=== PATIENT | female | born 1955 | race Caucasian/White ===

== ENCOUNTER 2017-08-14 11:06 | Outpatient (CLI) | payer MEDICARE, BC, SELFPAY | END 2017-08-14 14:50 | disposition home or self-care (01) | DX: E88.01 Alpha-1-antitrypsin deficiency (principal) | CPT/HCPCS: 96365; J0256; J1642 ==

== ENCOUNTER → 2017-08-14 | Outpatient (CLI) | payer MEDICARE, BC, SELFPAY | DX: E88.01 Alpha-1-antitrypsin deficiency (principal) ==

== ENCOUNTER 2017-08-20 13:05 | Outpatient (CLI) | payer MEDICARE, BC, SELFPAY | END 2017-08-20 15:00 | disposition home or self-care (01) | PROVIDERS: Visit Provider Internal Medicine Pulmonary Disease | DX: E88.01 Alpha-1-antitrypsin deficiency (principal) | CPT/HCPCS: 96365; J0256; J1642 ==

== ENCOUNTER → 2017-08-27 09:00 | Outpatient (CLI) | payer MEDICARE, BC, SELFPAY | PROVIDERS: Visit Provider Internal Medicine Pulmonary Disease | DX: E88.01 Alpha-1-antitrypsin deficiency (principal) ==

== ENCOUNTER 2017-08-30 12:52 | Outpatient (CLI) | payer MEDICARE, BC, SELFPAY ==
[2017-08-30 12:53] VITALS: BMI 22.5
[2017-08-30 14:10] VITALS: BP 116/69; PULSE 66; RESP 20; TEMP 36.3; O2SAT 97
[2017-08-30 14:30] VITALS: BP 118/67; PULSE 69; RESP 20; O2SAT 96
[2017-08-30 14:55] VITALS: BP 120/64; PULSE 69; RESP 20; TEMP 36.4; O2SAT 97
== END 2017-08-30 15:10 | disposition home or self-care (01) ==
PROVIDERS: Visit Provider Internal Medicine Pulmonary Disease
DX: E88.01 Alpha-1-antitrypsin deficiency (principal)
CPT/HCPCS: 96365; J0256

== ENCOUNTER 2017-09-05 11:40 | Outpatient (CLI) | payer MEDICARE, BC, SELFPAY ==
[2017-09-05 12:03] VITALS: BMI 22.5
[2017-09-05 13:05] VITALS: BP 130/74; PULSE 65; RESP 18; TEMP 36.4; O2SAT 96
[2017-09-05 13:20] VITALS: BP 126/78; PULSE 69; RESP 20; O2SAT 96
[2017-09-05 13:35] VITALS: BP 119/67; PULSE 67; RESP 20; TEMP 36.5; O2SAT 95
[2017-09-05 14:09] LABS: Potassium 3.7 mmoL/L (3.5-5.1)
== END 2017-09-05 13:50 | disposition home or self-care (01) ==
LOC: INF 12:11
PROVIDERS: Physician Assistant; Visit Provider Internal Medicine Pulmonary Disease
DX: E88.01 Alpha-1-antitrypsin deficiency (principal); E87.6 Hypokalemia
CPT/HCPCS: 84132; 96365; J0256

== ENCOUNTER 2017-09-12 12:56 | Outpatient (CLI) | payer MEDICARE, BC, SELFPAY ==
[2017-09-12 13:07] VITALS: BMI 22.4
[2017-09-12 14:05] VITALS: BP 109/68; PULSE 80; RESP 22; TEMP 36.1; O2SAT 92
[2017-09-12 14:35] VITALS: BP 148/73; PULSE 73; RESP 22; O2SAT 92
== END 2017-09-12 16:00 | disposition home or self-care (01) ==
LOC: INF 12:57
PROVIDERS: Visit Provider Internal Medicine Pulmonary Disease
DX: E88.01 Alpha-1-antitrypsin deficiency (principal)
CPT/HCPCS: 96365; J0256

== ENCOUNTER 2017-09-18 13:16 | Outpatient (CLI) | payer MEDICARE, BC, SELFPAY ==
[2017-09-18 14:02] VITALS: BP 109/57; PULSE 76; RESP 20; TEMP 36.4; O2SAT 94
[2017-09-18 14:17] VITALS: BP 110/61; PULSE 79; RESP 20; TEMP 36.3; O2SAT 94
[2017-09-18 14:32] VITALS: BP 117/59; PULSE 74; RESP 20; O2SAT 95
[2017-09-18 14:47] VITALS: BP 108/67; PULSE 76; RESP 20; O2SAT 94
[2017-09-18 15:10] VITALS: BP 111/67; PULSE 72; RESP 20; TEMP 36.6; O2SAT 95
== END 2017-09-18 15:20 | disposition home or self-care (01) ==
LOC: INF 13:17
PROVIDERS: Visit Provider Internal Medicine Pulmonary Disease
DX: E88.01 Alpha-1-antitrypsin deficiency (principal)
CPT/HCPCS: 96365; J0256

== ENCOUNTER 2017-09-24 12:10 | Outpatient (CLI) | payer MEDICARE, BC, SELFPAY ==
[2017-09-24 12:29] VITALS: BP 121/78; PULSE 69; RESP 20; TEMP 36.5; O2SAT 94; BMI 22.3
[2017-09-24 13:15] VITALS: BP 126/74; PULSE 70; RESP 20; TEMP 36.4; O2SAT 95
[2017-09-24 13:40] VITALS: BP 120/77; PULSE 68; RESP 20; TEMP 36.6; O2SAT 95
== END 2017-09-24 14:07 ==
LOC: INF 12:23
PROVIDERS: Visit Provider Internal Medicine Pulmonary Disease
DX: E88.01 Alpha-1-antitrypsin deficiency (principal)
CPT/HCPCS: 96365; J0256

== ENCOUNTER 2017-10-01 13:00 | Outpatient (CLI) | payer MEDICARE, BC, SELFPAY ==
[2017-10-01 14:00] VITALS: BP 112/63; PULSE 66; RESP 20; TEMP 36.9; O2SAT 97
[2017-10-01 14:45] VITALS: BP 112/63; PULSE 66; RESP 20; TEMP 36.4; O2SAT 98
== END 2017-10-01 15:00 | disposition home or self-care (01) ==
LOC: INF 17:07
PROVIDERS: Visit Provider Internal Medicine Pulmonary Disease
DX: E88.01 Alpha-1-antitrypsin deficiency (principal)
CPT/HCPCS: 96365; J0256

== ENCOUNTER 2017-10-08 12:40 | Outpatient (CLI) | payer MEDICARE, BC, SELFPAY ==
[2017-10-08 13:00] VITALS: BP 130/60; PULSE 68; RESP 20; TEMP 36.4; O2SAT 96
[2017-10-08 13:15] VITALS: BP 122/70; PULSE 68; RESP 20; TEMP 36.6; O2SAT 96
[2017-10-08 13:55] VITALS: BP 132/78; PULSE 68; RESP 20; TEMP 36.7; O2SAT 96
[2017-10-08 14:00] VITALS: BP 128/70; PULSE 68; RESP 20; TEMP 36.4; O2SAT 96
== END 2017-10-08 14:00 | disposition home or self-care (01) ==
LOC: INF 15:42
PROVIDERS: Visit Provider Internal Medicine Critical Care Medicine
DX: E88.01 Alpha-1-antitrypsin deficiency (principal)
CPT/HCPCS: 96365; J0256

== ENCOUNTER 2017-10-15 13:10 | Outpatient (CLI) | payer MEDICARE, BC, SELFPAY ==
[2017-10-15 13:30] VITALS: BP 86/59; PULSE 64; RESP 18; O2SAT 96
[2017-10-15 13:37] VITALS: BMI 22.4
[2017-10-15 14:00] VITALS: BP 98/58; PULSE 65; RESP 20; TEMP 36.3; O2SAT 95
[2017-10-15 14:02] LABS: Potassium 4.2 mmoL/L (3.5-5.1)
[2017-10-15 14:30] VITALS: BP 102/54; PULSE 61; RESP 22; O2SAT 97
[2017-10-15 14:45] VITALS: BP 104/56; PULSE 69; RESP 20; TEMP 36.4; O2SAT 96
== END 2017-10-15 14:45 | disposition home or self-care (01) ==
LOC: INF 13:56
PROVIDERS: Visit Provider Internal Medicine Critical Care Medicine
DX: E88.01 Alpha-1-antitrypsin deficiency (principal)
CPT/HCPCS: 84132; 96365; J0256

== ENCOUNTER 2017-10-23 14:15 | Outpatient (CLI) | payer MEDICARE, BC, SELFPAY ==
[2017-10-23 14:25] VITALS: BP 126/75; PULSE 71; RESP 20; TEMP 36.2
[2017-10-23 15:05] VITALS: BP 116/63; PULSE 72; RESP 18
== END 2017-10-23 15:30 | disposition home or self-care (01) ==
LOC: INF 14:16
PROVIDERS: Visit Provider Internal Medicine Pulmonary Disease
DX: E88.01 Alpha-1-antitrypsin deficiency (principal)
CPT/HCPCS: 96365; J0256

== ENCOUNTER 2017-10-29 12:44 | Outpatient (CLI) | payer MEDICARE, BC, SELFPAY ==
[2017-10-29 13:15] VITALS: BP 129/75; PULSE 68; RESP 18; TEMP 36.4; O2SAT 95
[2017-10-29 13:30] VITALS: BP 132/76; PULSE 71; RESP 20; TEMP 36.6; O2SAT 95
[2017-10-29 13:45] VITALS: BP 122/68; PULSE 69; RESP 20
[2017-10-29 14:15] VITALS: BP 129/65; PULSE 72; RESP 18; TEMP 36.6; O2SAT 96
[2017-10-29 14:30] VITALS: BP 128/74; PULSE 68; RESP 20; TEMP 36.6; O2SAT 96
== END 2017-10-29 14:30 | disposition home or self-care (01) ==
LOC: INF 12:44
PROVIDERS: Visit Provider Internal Medicine Critical Care Medicine
DX: E88.01 Alpha-1-antitrypsin deficiency (principal)
CPT/HCPCS: 96365; J0256; J1642

== ENCOUNTER 2017-11-05 13:50 | Outpatient (CLI) | payer MEDICARE, BC, SELFPAY ==
[2017-11-05 14:58] VITALS: BP 129/68; PULSE 76; RESP 18; TEMP 36.6; O2SAT 95
[2017-11-05 15:13] VITALS: BP 131/67; PULSE 79; RESP 18; O2SAT 96
[2017-11-05 15:28] VITALS: BP 127/61; PULSE 80; RESP 18; O2SAT 95
[2017-11-05 15:45] VITALS: BP 124/68; PULSE 78; RESP 18; O2SAT 95
== END 2017-11-05 15:50 | disposition home or self-care (01) ==
LOC: INF 13:50
PROVIDERS: Visit Provider Internal Medicine Critical Care Medicine
DX: E88.01 Alpha-1-antitrypsin deficiency (principal)
CPT/HCPCS: 96365; J0256

== ENCOUNTER 2017-11-15 13:15 | Outpatient (CLI) | payer MEDICARE, BC, SELFPAY ==
[2017-11-15 14:45] VITALS: BP 109/74; PULSE 68; RESP 20; TEMP 37.1; O2SAT 96
[2017-11-15 15:00] VITALS: BP 98/65; PULSE 66; RESP 20; TEMP 36.4; O2SAT 96
[2017-11-15 15:30] VITALS: BP 109/78; PULSE 66; RESP 22; TEMP 36.6; O2SAT 96
== END 2017-11-15 15:30 | disposition home or self-care (01) ==
LOC: INF 13:56
PROVIDERS: Visit Provider Internal Medicine Critical Care Medicine
DX: E88.01 Alpha-1-antitrypsin deficiency (principal)
CPT/HCPCS: 96365; J0256

== ENCOUNTER 2017-11-22 14:28 | Outpatient (CLI) | payer MEDICARE, BC, SELFPAY ==
[2017-11-22 15:30] VITALS: BP 130/69; PULSE 85; RESP 20
[2017-11-22 16:11] VITALS: BP 111/77; PULSE 69; RESP 20
[2017-11-22 16:13] VITALS: BP 115/65; PULSE 86; RESP 20
== END 2017-11-22 16:28 | disposition home or self-care (01) ==
LOC: INF 14:28
PROVIDERS: Visit Provider Internal Medicine Critical Care Medicine
DX: E88.01 Alpha-1-antitrypsin deficiency (principal)
CPT/HCPCS: 96365; J0256

== ENCOUNTER 2017-11-26 14:31 | Outpatient (CLI) | payer MEDICARE, BC, SELFPAY ==
[2017-11-26 14:35] VITALS: BP 102/60; PULSE 76; RESP 18; TEMP 36.6; O2SAT 94
[2017-11-26 14:43] VITALS: BMI 22.3
[2017-11-26 14:50] VITALS: BP 108/66; PULSE 79; RESP 22; O2SAT 95
[2017-11-26 15:15] VITALS: BP 99/73; PULSE 73; RESP 20; O2SAT 94
[2017-11-26 15:35] VITALS: BP 108/52; PULSE 74; RESP 22; TEMP 36.6; O2SAT 95
[2017-11-26 15:55] VITALS: BP 104/62; PULSE 69; RESP 20; TEMP 36.6; O2SAT 94
[2017-11-26 16:49] LABS: Potassium 3.6 mmoL/L (3.5-5.1)
== END 2017-11-26 16:00 | disposition home or self-care (01) ==
LOC: INF 14:31
PROVIDERS: Visit Provider Internal Medicine Critical Care Medicine
DX: E88.01 Alpha-1-antitrypsin deficiency (principal)
CPT/HCPCS: 84132; 96365; J0256

== ENCOUNTER 2017-12-03 13:15 | Outpatient (CLI) | payer MEDICARE, BC, SELFPAY ==
[2017-12-03 13:47] VITALS: BP 118/57; PULSE 79; RESP 18; TEMP 36.4; O2SAT 96
[2017-12-03 14:02] VITALS: BP 116/59; PULSE 77; RESP 18; O2SAT 95
[2017-12-03 14:22] VITALS: BP 112/68; PULSE 79; RESP 18; O2SAT 95
[2017-12-03 14:37] VITALS: BP 120/62; PULSE 75; RESP 18; O2SAT 95
[2017-12-03 14:43] VITALS: BP 115/67; PULSE 74; RESP 18; O2SAT 96
== END 2017-12-03 15:00 | disposition home or self-care (01) ==
LOC: INF 13:26
PROVIDERS: Visit Provider Internal Medicine Critical Care Medicine
DX: E88.01 Alpha-1-antitrypsin deficiency (principal)
CPT/HCPCS: 96365; J0256

== ENCOUNTER 2017-12-12 13:15 | Outpatient (CLI) | payer MEDICARE, BC, SELFPAY ==
[2017-12-12 14:20] VITALS: BP 123/70; PULSE 85; RESP 20
[2017-12-12 14:50] VITALS: BP 100/69; PULSE 85; RESP 18
== END 2017-12-12 15:10 | disposition home or self-care (01) ==
LOC: INF 13:32
PROVIDERS: Visit Provider Internal Medicine Critical Care Medicine
DX: E88.01 Alpha-1-antitrypsin deficiency (principal)
CPT/HCPCS: 96365; J0256

== ENCOUNTER 2017-12-17 13:30 | Outpatient (CLI) | payer MEDICARE, BC, SELFPAY ==
[2017-12-17 14:35] VITALS: BP 110/71; PULSE 70; RESP 18; TEMP 36.6; O2SAT 94
[2017-12-17 14:55] VITALS: BP 113/76; PULSE 73; RESP 18; TEMP 36.6; O2SAT 95
[2017-12-17 15:20] VITALS: BP 99/79; PULSE 71; RESP 20; TEMP 36.5; O2SAT 94
[2017-12-17 15:55] VITALS: BP 112/74; PULSE 74; RESP 20; TEMP 36.4; O2SAT 94
== END 2017-12-17 16:00 | disposition home or self-care (01) ==
LOC: INF 14:03
PROVIDERS: Visit Provider Internal Medicine Critical Care Medicine
DX: E88.01 Alpha-1-antitrypsin deficiency (principal)
CPT/HCPCS: 96365; J0256; J1642

== ENCOUNTER 2017-12-24 12:00 | Outpatient (CLI) | payer MEDICARE, BC, SELFPAY ==
[2017-12-24 13:10] VITALS: BP 98/64; PULSE 89; RESP 18; TEMP 36.4; O2SAT 94
[2017-12-24 13:40] VITALS: BP 101/61; PULSE 84; RESP 18; O2SAT 95
[2017-12-24 14:00] VITALS: BP 99/60; PULSE 81; RESP 18; O2SAT 95
== END 2017-12-24 14:15 | disposition home or self-care (01) ==
LOC: INF 12:05
PROVIDERS: Visit Provider Internal Medicine Critical Care Medicine
DX: E88.01 Alpha-1-antitrypsin deficiency (principal)
CPT/HCPCS: 96365; J0256

== ENCOUNTER 2017-12-31 14:00 | Outpatient (CLI) | payer MEDICARE, BC, SELFPAY ==
[2017-12-31 14:43] VITALS: BP 104/69; PULSE 75; RESP 18; TEMP 36.7; O2SAT 95
[2017-12-31 15:13] VITALS: BP 109/67; PULSE 79; RESP 18; O2SAT 95
[2017-12-31 15:30] VITALS: BP 108/64; PULSE 81; RESP 18; O2SAT 94
== END 2017-12-31 15:45 | disposition home or self-care (01) ==
LOC: INF 14:23
PROVIDERS: Referring Provider Nurse Practitioner Acute Care
DX: E88.01 Alpha-1-antitrypsin deficiency (principal)
CPT/HCPCS: 96365; J0256

== ENCOUNTER 2018-01-07 15:00 | Outpatient (CLI) | payer MEDICARE, BC, SELFPAY ==
[2018-01-07 16:00] VITALS: BP 112/76; PULSE 64; RESP 18; TEMP 36.4; O2SAT 96
[2018-01-07 16:30] VITALS: BP 118/71; PULSE 68; RESP 18; O2SAT 95
[2018-01-07 16:45] VITALS: BP 121/68; PULSE 65; RESP 18; O2SAT 95
== END 2018-01-07 16:50 | disposition home or self-care (01) ==
LOC: INF 16:35
PROVIDERS: Visit Provider Internal Medicine Critical Care Medicine
DX: E88.01 Alpha-1-antitrypsin deficiency (principal)
CPT/HCPCS: 96365; J0256

== ENCOUNTER 2018-01-14 13:48 | Outpatient (CLI) | payer MEDICARE, BC, SELFPAY ==
[2018-01-14 14:38] VITALS: BP 116/81; PULSE 71; RESP 18; TEMP 36.5; O2SAT 94
[2018-01-14 14:55] VITALS: BP 127/78; PULSE 69; RESP 18; TEMP 36.6; O2SAT 94
[2018-01-14 15:55] VITALS: BP 121/68; PULSE 76; RESP 18; TEMP 36.6; O2SAT 94
== END 2018-01-14 16:00 | disposition home or self-care (01) ==
LOC: INF 13:49
PROVIDERS: Visit Provider Nurse Practitioner Acute Care
DX: E88.01 Alpha-1-antitrypsin deficiency (principal)
CPT/HCPCS: 96365; J0256

== ENCOUNTER 2018-01-21 12:40 | Outpatient (CLI) | payer MEDICARE, BC, SELFPAY ==
[2018-01-21 13:10] VITALS: BP 122/69; PULSE 68; RESP 20; TEMP 36.9; O2SAT 94
[2018-01-21 13:30] VITALS: BP 123/70; PULSE 68; RESP 20; TEMP 36.7; O2SAT 96
[2018-01-21 14:10] VITALS: BP 113/78; PULSE 66; RESP 20; TEMP 36.7; O2SAT 96
== END 2018-01-21 15:35 | disposition home or self-care (01) ==
LOC: INF 12:51
PROVIDERS: Visit Provider Internal Medicine Critical Care Medicine
DX: E88.01 Alpha-1-antitrypsin deficiency (principal)
CPT/HCPCS: 96365; J0256; J1642

== ENCOUNTER 2018-01-28 15:00 | Outpatient (CLI) | payer MEDICARE, BC, SELFPAY ==
[2018-01-28 15:10] VITALS: BP 105/61; PULSE 81; RESP 20; TEMP 36.9; O2SAT 93
[2018-01-28 15:50] VITALS: BP 106/50; PULSE 66; RESP 22; TEMP 36.9; O2SAT 92
== END 2018-01-28 16:00 | disposition home or self-care (01) ==
LOC: INF 15:13
PROVIDERS: Visit Provider Internal Medicine Critical Care Medicine
DX: E88.01 Alpha-1-antitrypsin deficiency (principal)
CPT/HCPCS: 96365; J0256; J1642

== ENCOUNTER 2018-02-03 12:16 | Outpatient (CLI) | payer MEDICARE, BC, SELFPAY ==
[2018-02-03 12:19] VITALS: BMI 22.3
[2018-02-03 13:04] LABS: Potassium 3.4 mmoL/L (3.5-5.1)
[2018-02-03 13:40] VITALS: BP 90/63; PULSE 90; RESP 18; TEMP 36.6; O2SAT 94
[2018-02-03 13:55] VITALS: BP 112/70; PULSE 78; RESP 18; TEMP 36.6; O2SAT 95
[2018-02-03 14:15] VITALS: BP 104/64; PULSE 74; RESP 20; TEMP 36.6; O2SAT 94
[2018-02-03 14:35] VITALS: BP 116/72; PULSE 78; RESP 18; TEMP 36.5; O2SAT 95
== END 2018-02-03 15:00 | disposition home or self-care (01) ==
LOC: INF 12:16
PROVIDERS: Visit Provider Nurse Practitioner Acute Care
DX: E88.01 Alpha-1-antitrypsin deficiency (principal)
CPT/HCPCS: 84132; 96365; J0256

== ENCOUNTER 2018-02-11 11:54 | Outpatient (CLI) | payer MEDICARE, BC, SELFPAY ==
[2018-02-11 12:35] VITALS: BP 105/70; PULSE 84; RESP 22; TEMP 36.7; O2SAT 94
[2018-02-11 12:55] VITALS: BP 112/64; PULSE 78; RESP 18; TEMP 36.6; O2SAT 94
[2018-02-11 13:15] VITALS: BP 102/58; PULSE 80; RESP 20; O2SAT 95
[2018-02-11 13:35] VITALS: BP 108/59; PULSE 76; RESP 18; TEMP 36.6; O2SAT 94
[2018-02-11 13:40] VITALS: BP 108/56; PULSE 79; RESP 18; TEMP 36.6; O2SAT 94
== END 2018-02-11 13:55 | disposition home or self-care (01) ==
LOC: INF 11:54
PROVIDERS: Visit Provider Nurse Practitioner Acute Care
DX: E88.01 Alpha-1-antitrypsin deficiency (principal)
CPT/HCPCS: 96365; J0256; J1642

== ENCOUNTER 2018-02-20 13:05 | Outpatient (CLI) | payer MEDICARE, BC, SELFPAY ==
[2018-02-20 13:50] VITALS: BP 124/70; PULSE 79; RESP 18; O2SAT 100
[2018-02-20 14:30] VITALS: BP 131/71; PULSE 82; RESP 18
== END 2018-02-20 15:00 | disposition home or self-care (01) ==
LOC: INF 13:21
PROVIDERS: Visit Provider Nurse Practitioner Acute Care
DX: E88.01 Alpha-1-antitrypsin deficiency (principal)
CPT/HCPCS: 96365; J0256

== ENCOUNTER 2018-02-25 14:32 | Outpatient (CLI) | payer MEDICARE, BC, SELFPAY ==
[2018-02-25 14:50] VITALS: BP 98/56; PULSE 71; RESP 22; TEMP 36.7; O2SAT 96
[2018-02-25 15:20] VITALS: BP 105/61; PULSE 76; RESP 20; O2SAT 95
[2018-02-25 15:30] VITALS: BP 109/54; PULSE 75; RESP 22; O2SAT 95
== END 2018-02-25 15:40 | disposition home or self-care (01) ==
LOC: INF 14:32
PROVIDERS: Visit Provider Nurse Practitioner Acute Care
DX: E88.01 Alpha-1-antitrypsin deficiency (principal)
CPT/HCPCS: 96365; J0256

== ENCOUNTER 2018-03-05 15:03 | Outpatient (CLI) | payer MEDICARE, BC, SELFPAY ==
[2018-03-05 14:49] VITALS: BP 119/69; PULSE 82; RESP 20; TEMP 36.3; O2SAT 94
[2018-03-05 15:19] VITALS: BP 115/64; PULSE 80; RESP 20; O2SAT 95
[2018-03-05 15:45] VITALS: BP 116/61; PULSE 81; RESP 20; O2SAT 95
== END 2018-03-05 15:50 | disposition home or self-care (01) ==
LOC: INF 15:03
PROVIDERS: Visit Provider Nurse Practitioner Acute Care
DX: E88.01 Alpha-1-antitrypsin deficiency (principal)
CPT/HCPCS: 96365; J0256

== ENCOUNTER 2018-03-11 14:21 | Outpatient (CLI) | payer MEDICARE, BC, SELFPAY ==
[2018-03-11 14:42] VITALS: BMI 21.9
[2018-03-11 15:15] VITALS: BP 124/69; PULSE 82; RESP 18; TEMP 36.6; O2SAT 95
[2018-03-11 15:41] LABS: Potassium 3.1 mmoL/L (3.5-5.1)
[2018-03-11 15:45] VITALS: BP 121/66; PULSE 80; RESP 18; O2SAT 95
[2018-03-11 16:00] VITALS: BP 119/61; PULSE 85; RESP 18; O2SAT 95
== END 2018-03-11 16:05 | disposition home or self-care (01) ==
LOC: INF 14:21
PROVIDERS: Visit Provider Nurse Practitioner Acute Care
DX: E88.01 Alpha-1-antitrypsin deficiency (principal)
CPT/HCPCS: 84132; 96365; J0256

== ENCOUNTER 2018-03-18 14:00 | Outpatient (CLI) | payer MEDICARE, BC, SELFPAY ==
[2018-03-18 15:15] VITALS: BP 95/51; PULSE 78; RESP 18; TEMP 36.4; O2SAT 95
[2018-03-18 15:45] VITALS: BP 112/67; PULSE 74; RESP 18; TEMP 36.6; O2SAT 94
[2018-03-18 16:10] VITALS: BP 102/65; PULSE 69; RESP 16; O2SAT 95
[2018-03-18 16:30] VITALS: BP 108/64; PULSE 78; RESP 20; TEMP 36.4; O2SAT 95
== END 2018-03-18 16:45 | disposition home or self-care (01) ==
LOC: INF 14:55
PROVIDERS: Visit Provider Nurse Practitioner Acute Care
DX: E88.01 Alpha-1-antitrypsin deficiency (principal)
CPT/HCPCS: 96365; J0256; J1642

== ENCOUNTER 2018-03-25 11:50 | Outpatient (CLI) | payer MEDICARE, BC, SELFPAY ==
[2018-03-25 13:20] VITALS: BP 121/57; PULSE 67; RESP 18; TEMP 36.5; O2SAT 98
[2018-03-25 13:50] VITALS: BP 118/61; PULSE 69; RESP 18; O2SAT 97
[2018-03-25 14:05] VITALS: BP 115/64; PULSE 68; RESP 18; O2SAT 97
== END 2018-03-25 14:10 | disposition home or self-care (01) ==
LOC: INF 16:19
PROVIDERS: Visit Provider Nurse Practitioner Acute Care
DX: E88.01 Alpha-1-antitrypsin deficiency (principal)
CPT/HCPCS: 96365; J0256

== ENCOUNTER 2018-04-01 13:57 | Outpatient (CLI) | payer MEDICARE, BC, SELFPAY ==
[2018-04-01 14:00] VITALS: BP 103/58; PULSE 80; RESP 18; TEMP 36.5; O2SAT 96
[2018-04-01 14:30] VITALS: BP 109/57; PULSE 79; RESP 18; O2SAT 96
[2018-04-01 14:52] VITALS: BP 99/58; PULSE 76; RESP 18; O2SAT 95
== END 2018-04-01 14:55 | disposition home or self-care (01) ==
LOC: INF 13:57
PROVIDERS: Visit Provider Nurse Practitioner Acute Care
DX: E88.01 Alpha-1-antitrypsin deficiency (principal)
CPT/HCPCS: 96365; J0256

== ENCOUNTER 2018-04-08 13:50 | Outpatient (CLI) | payer MEDICARE, BC, SELFPAY ==
[2018-04-08 14:05] VITALS: BMI 22.3
[2018-04-08 14:17] VITALS: BP 93/47; PULSE 70; RESP 18; TEMP 36.7; O2SAT 97
[2018-04-08 14:18] LABS: Potassium 3.8 mmoL/L (3.5-5.1)
[2018-04-08 14:47] VITALS: BP 97/49; PULSE 75; RESP 18; O2SAT 97
[2018-04-08 15:17] VITALS: BP 94/46; PULSE 74; RESP 18; O2SAT 97
[2018-04-08 15:35] VITALS: BP 101/49; PULSE 71; RESP 18; O2SAT 97
== END 2018-04-08 15:40 | disposition home or self-care (01) ==
LOC: INF 13:50
PROVIDERS: Visit Provider Nurse Practitioner Acute Care
DX: E88.01 Alpha-1-antitrypsin deficiency (principal)
CPT/HCPCS: 84132; 96365; J0256; J1642

== ENCOUNTER 2018-04-15 12:40 | Outpatient (CLI) | payer MEDICARE, BC, SELFPAY ==
[2018-04-15 12:40] VITALS: BP 105/65; PULSE 77; RESP 18; TEMP 36.9; O2SAT 93
[2018-04-15 13:29] VITALS: BMI 22.3
[2018-04-15 13:45] VITALS: BP 108/61; PULSE 79; RESP 18; O2SAT 94
[2018-04-15 14:05] VITALS: BP 99/60; PULSE 75; RESP 18; O2SAT 94
== END 2018-04-15 14:15 | disposition home or self-care (01) ==
LOC: INF 13:04
PROVIDERS: Visit Provider Internal Medicine Critical Care Medicine
DX: E88.01 Alpha-1-antitrypsin deficiency (principal)
CPT/HCPCS: 96365; J0256

== ENCOUNTER 2018-04-22 12:32 | Outpatient (CLI) | payer MEDICARE, BC, SELFPAY ==
[2018-04-22 13:20] VITALS: BP 120/74; PULSE 81; RESP 18; TEMP 36.7; O2SAT 95
[2018-04-22 13:50] VITALS: BP 117/72; PULSE 80; RESP 18; O2SAT 96
[2018-04-22 14:10] VITALS: BP 121/70; PULSE 79; RESP 18; O2SAT 95
== END 2018-04-22 14:17 | disposition home or self-care (01) ==
LOC: INF 12:33
PROVIDERS: Visit Provider Nurse Practitioner Acute Care
DX: E88.01 Alpha-1-antitrypsin deficiency (principal)
CPT/HCPCS: 96365; J0256

== ENCOUNTER 2018-04-30 13:26 | Outpatient (CLI) | payer MEDICARE, BC, SELFPAY ==
[2018-04-30 13:50] VITALS: BP 96/63; PULSE 84; RESP 18; TEMP 36.6; O2SAT 95
[2018-04-30 14:20] VITALS: BP 101/64; PULSE 88; RESP 18; O2SAT 96
[2018-04-30 14:50] VITALS: BP 99/68; PULSE 85; RESP 18; O2SAT 95
== END 2018-04-30 15:00 | disposition home or self-care (01) ==
LOC: INF 13:26
PROVIDERS: Visit Provider Nurse Practitioner Acute Care
DX: E88.01 Alpha-1-antitrypsin deficiency (principal)
CPT/HCPCS: 96365; J0256

== ENCOUNTER 2018-05-06 13:38 | Outpatient (CLI) | payer MEDICARE, BC, SELFPAY ==
[2018-05-06 14:35] VITALS: BP 147/83; PULSE 70; RESP 20; TEMP 36.6; O2SAT 96
[2018-05-06 14:55] VITALS: BP 129/74; PULSE 72; RESP 18; TEMP 36.6; O2SAT 97
[2018-05-06 15:15] VITALS: BP 123/75; PULSE 69; RESP 20; TEMP 36.5; O2SAT 96
== END 2018-05-06 15:20 | disposition home or self-care (01) ==
LOC: INF 13:38
PROVIDERS: Visit Provider Nurse Practitioner Acute Care
DX: E88.01 Alpha-1-antitrypsin deficiency (principal)
CPT/HCPCS: 96365; J0256; J1642

== ENCOUNTER 2018-05-13 14:15 | Outpatient (CLI) | payer MEDICARE, BC, SELFPAY ==
[2018-05-13 14:45] VITALS: BP 118/69; PULSE 90; RESP 18; TEMP 36.8; O2SAT 95
[2018-05-13 15:15] VITALS: BP 115/67; PULSE 89; RESP 18; O2SAT 96
[2018-05-13 15:40] VITALS: BP 92/59; PULSE 87; RESP 18; TEMP 36.7; O2SAT 95
== END 2018-05-13 15:40 | disposition home or self-care (01) ==
LOC: INF 14:30
PROVIDERS: PCP Physician Assistant; Visit Provider Nurse Practitioner Acute Care
DX: E88.01 Alpha-1-antitrypsin deficiency (principal)
CPT/HCPCS: 96365; J0256

== ENCOUNTER 2018-05-20 13:59 | Outpatient (CLI) | payer MEDICARE, BC, SELFPAY ==
[2018-05-20 14:17] VITALS: BP 109/60; PULSE 76; RESP 18; TEMP 36.6; O2SAT 95
[2018-05-20 14:47] VITALS: BP 112/62; PULSE 74; RESP 18; O2SAT 96
[2018-05-20 15:10] VITALS: BP 116/73; PULSE 73; RESP 18; O2SAT 95
== END 2018-05-20 15:42 | disposition home or self-care (01) ==
LOC: INF 13:59
PROVIDERS: PCP Physician Assistant; Visit Provider Nurse Practitioner Acute Care
DX: E88.01 Alpha-1-antitrypsin deficiency (principal)
CPT/HCPCS: 96365; J0256

== ENCOUNTER 2018-05-27 13:10 | Outpatient (CLI) | payer MEDICARE, BC, SELFPAY ==
[2018-05-27 14:30] VITALS: BP 120/58; PULSE 68; RESP 20; TEMP 36.9; O2SAT 96
[2018-05-27 15:00] VITALS: BP 135/68; PULSE 68; RESP 20; TEMP 37; O2SAT 96
[2018-05-27 15:30] VITALS: BP 128/58; PULSE 68; RESP 20; TEMP 36.9; O2SAT 96
== END 2018-05-27 15:30 | disposition home or self-care (01) ==
LOC: INF 13:14
PROVIDERS: Visit Provider Internal Medicine Critical Care Medicine
DX: E88.01 Alpha-1-antitrypsin deficiency (principal)
CPT/HCPCS: 96365; J0256

== ENCOUNTER 2018-06-03 13:06 | Outpatient (CLI) | payer MEDICARE, BC, SELFPAY ==
[2018-06-03 14:20] VITALS: BP 128/75; PULSE 78; RESP 18; TEMP 36.6; O2SAT 95
[2018-06-03 14:50] VITALS: BP 122/74; PULSE 79; RESP 18; O2SAT 95
[2018-06-03 15:00] VITALS: BP 120/71; PULSE 76; RESP 18; O2SAT 96
== END 2018-06-03 15:05 | disposition home or self-care (01) ==
LOC: INF 13:06
PROVIDERS: PCP Physician Assistant; Visit Provider Internal Medicine Critical Care Medicine
DX: E88.01 Alpha-1-antitrypsin deficiency (principal)
CPT/HCPCS: 96365; J0256; J1642

== ENCOUNTER 2018-06-10 13:20 | Outpatient (CLI) | payer MEDICARE, BC, SELFPAY ==
[2018-06-10 14:00] VITALS: BP 124/87; PULSE 88; RESP 18; TEMP 36.6; O2SAT 94
[2018-06-10 14:30] VITALS: BP 130/82; PULSE 90; RESP 20
== END 2018-06-10 14:45 | disposition home or self-care (01) ==
LOC: INF 14:03
PROVIDERS: PCP Physician Assistant; Visit Provider Nurse Practitioner Acute Care
DX: E88.01 Alpha-1-antitrypsin deficiency (principal)
CPT/HCPCS: 96365; J0256

== ENCOUNTER 2018-06-17 13:32 | Outpatient (CLI) | payer MEDICARE, BC, SELFPAY ==
[2018-06-17 14:06] VITALS: BP 96/57; PULSE 90; RESP 18; TEMP 36.6; O2SAT 95
[2018-06-17 14:36] VITALS: BP 102/59; PULSE 89; RESP 18; O2SAT 95
[2018-06-17 14:50] VITALS: BP 99/54; PULSE 84; RESP 18; O2SAT 96
== END 2018-06-17 14:57 | disposition home or self-care (01) ==
LOC: INF 13:32
PROVIDERS: Visit Provider Nurse Practitioner Acute Care
DX: E88.01 Alpha-1-antitrypsin deficiency (principal)
CPT/HCPCS: 96365; J0256

== ENCOUNTER 2018-06-24 14:25 | Outpatient (CLI) | payer MEDICARE, BC, SELFPAY ==
[2018-06-24 14:38] VITALS: BP 116/66; PULSE 77; RESP 20; TEMP 36.4; O2SAT 95
[2018-06-24 15:22] VITALS: BP 114/69; PULSE 79; RESP 18; O2SAT 95
== END 2018-06-24 15:37 | disposition home or self-care (01) ==
LOC: INF 14:25
PROVIDERS: Visit Provider Internal Medicine Critical Care Medicine
DX: E88.01 Alpha-1-antitrypsin deficiency (principal)
CPT/HCPCS: 96365; J0256

== ENCOUNTER 2018-07-02 11:10 | Outpatient (CLI) | payer MEDICARE, BC, SELFPAY ==
[2018-07-02 12:02] VITALS: BP 109/62; PULSE 84; RESP 18; TEMP 36.6; O2SAT 94
[2018-07-02 12:32] VITALS: BP 107/71; PULSE 81; RESP 18; O2SAT 95
[2018-07-02 12:55] VITALS: BP 110/70; PULSE 80; RESP 18; O2SAT 95
== END 2018-07-02 13:00 | disposition home or self-care (01) ==
LOC: INF 11:23
PROVIDERS: Visit Provider Nurse Practitioner Acute Care
DX: E88.01 Alpha-1-antitrypsin deficiency (principal)
CPT/HCPCS: 96365; J0256

== ENCOUNTER 2018-07-09 13:09 | Outpatient (CLI) | payer MEDICARE, BC, SELFPAY ==
[2018-07-09 13:30] VITALS: BP 122/64; PULSE 69; RESP 18; TEMP 36.5; O2SAT 95
[2018-07-09 14:00] VITALS: BP 119/66; PULSE 75; RESP 18; O2SAT 96
[2018-07-09 14:25] VITALS: BP 116/69; PULSE 76; RESP 18; O2SAT 95
== END 2018-07-09 14:35 | disposition home or self-care (01) ==
LOC: INF 13:09
PROVIDERS: Visit Provider Nurse Practitioner Acute Care
DX: E88.01 Alpha-1-antitrypsin deficiency (principal)
CPT/HCPCS: 96365; J0256

== ENCOUNTER → 2018-07-16 13:45 | Outpatient (CLI) | payer MEDICARE, BC, SELFPAY ==
[2018-07-16 14:30] VITALS: BP 104/65; PULSE 81; RESP 18; TEMP 37.1; O2SAT 94
[2018-07-16 15:02] VITALS: BP 110/65; PULSE 83; RESP 18; TEMP 37.1; O2SAT 94
[2018-07-16 15:17] VITALS: BP 109/61; PULSE 83; RESP 18; TEMP 37.1; O2SAT 94
== END ==
PROVIDERS: Visit Provider Nurse Practitioner Acute Care
DX: E88.01 Alpha-1-antitrypsin deficiency (principal)
CPT/HCPCS: 96365; J0256

== ENCOUNTER 2018-07-22 15:12 | Outpatient (CLI) | payer MEDICARE, BC, SELFPAY ==
[2018-07-22 15:15] VITALS: BP 131/74; PULSE 73; RESP 18; TEMP 36.4; O2SAT 96
[2018-07-22 15:46] VITALS: BP 133/76; PULSE 78; RESP 18; O2SAT 96
[2018-07-22 16:00] VITALS: BP 129/72; PULSE 71; RESP 18; O2SAT 95
== END 2018-07-22 16:00 | disposition home or self-care (01) ==
LOC: INF 15:12
PROVIDERS: Visit Provider Nurse Practitioner Acute Care
DX: E88.01 Alpha-1-antitrypsin deficiency (principal)
CPT/HCPCS: 96365; J0256

== ENCOUNTER 2018-07-29 12:00 | Outpatient (CLI) | payer MEDICARE, BC, SELFPAY ==
[2018-07-29 12:12] VITALS: BP 96/72; PULSE 82; RESP 20; TEMP 36.8; O2SAT 96
[2018-07-29 12:42] VITALS: BP 101/78; PULSE 88; RESP 20; O2SAT 96
[2018-07-29 12:57] VITALS: BP 111/74; PULSE 84; RESP 20; O2SAT 95
== END 2018-07-29 13:11 | disposition home or self-care (01) ==
LOC: INF 12:00
PROVIDERS: Visit Provider Nurse Practitioner Acute Care
DX: E88.01 Alpha-1-antitrypsin deficiency (principal)
CPT/HCPCS: 96365; J0256

== ENCOUNTER 2018-08-05 12:36 | Outpatient (CLI) | payer MEDICARE, BC, SELFPAY ==
[2018-08-05 13:50] VITALS: BP 105/52; PULSE 71; RESP 20; TEMP 36.6; O2SAT 95
[2018-08-05 14:20] VITALS: BP 116/66; PULSE 69; RESP 20; O2SAT 96
[2018-08-05 14:45] VITALS: BP 119/58; PULSE 68; RESP 20; O2SAT 96
== END 2018-08-05 15:00 | disposition home or self-care (01) ==
LOC: INF 12:36
PROVIDERS: Visit Provider Nurse Practitioner Acute Care
DX: E88.01 Alpha-1-antitrypsin deficiency (principal)
CPT/HCPCS: 96365; J0256

== ENCOUNTER 2018-08-13 14:37 | Outpatient (CLI) | payer MEDICARE, BC, SELFPAY ==
[2018-08-13 15:10] VITALS: BP 134/72; PULSE 78; RESP 20; TEMP 36.3; O2SAT 94
[2018-08-13 15:56] VITALS: BP 129/78; PULSE 79; RESP 20; O2SAT 95
== END 2018-08-13 15:59 | disposition home or self-care (01) ==
LOC: INF 14:37
PROVIDERS: Visit Provider Nurse Practitioner Acute Care
DX: E88.01 Alpha-1-antitrypsin deficiency (principal)
CPT/HCPCS: 96365; J0256

== ENCOUNTER 2018-08-20 12:57 | Outpatient (CLI) | payer MEDICARE, BC, SELFPAY ==
[2018-08-20 13:12] VITALS: BP 112/76; PULSE 82; RESP 18; TEMP 36.7; O2SAT 94
[2018-08-20 13:42] VITALS: BP 118/74; PULSE 88; RESP 18; O2SAT 95
[2018-08-20 14:15] VITALS: BP 128/77; PULSE 77; RESP 18; O2SAT 94
== END 2018-08-20 14:20 | disposition home or self-care (01) ==
LOC: INF 12:57
PROVIDERS: Visit Provider Internal Medicine Critical Care Medicine
DX: E88.01 Alpha-1-antitrypsin deficiency (principal)
CPT/HCPCS: 96365; J0256; J1642

== ENCOUNTER 2018-08-25 12:56 | Outpatient (CLI) | payer MEDICARE, BC, SELFPAY ==
[2018-08-25 12:55] VITALS: BP 151/73; PULSE 87; RESP 18; TEMP 36.6; O2SAT 96
[2018-08-25 13:28] VITALS: BP 151/73; PULSE 87; RESP 18; TEMP 36.6; O2SAT 96
[2018-08-25 14:09] VITALS: BP 109/58; PULSE 78; RESP 18; TEMP 36.6; O2SAT 96
== END 2018-08-25 14:12 | disposition home or self-care (01) ==
LOC: INF 12:56
PROVIDERS: Visit Provider Nurse Practitioner Acute Care
DX: E88.01 Alpha-1-antitrypsin deficiency (principal)
CPT/HCPCS: 96365; J0256

== ENCOUNTER 2018-09-03 12:43 | Outpatient (CLI) | payer MEDICARE, BC, SELFPAY ==
[2018-09-03 13:10] VITALS: BP 138/75; PULSE 77; RESP 18
[2018-09-03 13:50] VITALS: BP 129/78; PULSE 81; RESP 18
== END 2018-09-03 14:15 | disposition home or self-care (01) ==
LOC: INF 12:43
PROVIDERS: Visit Provider Nurse Practitioner Acute Care
DX: E88.01 Alpha-1-antitrypsin deficiency (principal)
CPT/HCPCS: 96365; J0256

== ENCOUNTER 2018-09-09 13:26 | Outpatient (CLI) | payer MEDICARE, BC, SELFPAY ==
[2018-09-09 14:16] VITALS: BP 120/81; PULSE 70; RESP 18; TEMP 36.8; O2SAT 97
[2018-09-09 14:46] VITALS: BP 116/78; PULSE 76; RESP 18; O2SAT 97
[2018-09-09 14:50] VITALS: BP 118/74; PULSE 74; RESP 18; O2SAT 97
== END 2018-09-09 15:00 | disposition home or self-care (01) ==
LOC: INF 13:26
PROVIDERS: Visit Provider Nurse Practitioner Acute Care
DX: E88.01 Alpha-1-antitrypsin deficiency (principal)
CPT/HCPCS: 96365; J0256

== ENCOUNTER 2018-09-19 13:50 | Outpatient (CLI) | payer MEDICARE, BC, SELFPAY ==
[2018-09-19 14:00] VITALS: BP 120/64; PULSE 96; RESP 20; TEMP 36.9; O2SAT 95
[2018-09-19 14:30] VITALS: BP 112/74; PULSE 66; RESP 20; TEMP 36.9; O2SAT 95
[2018-09-19 15:00] VITALS: BP 118/70; PULSE 68; RESP 20; TEMP 36.9; O2SAT 95
== END 2018-09-19 15:20 | disposition home or self-care (01) ==
LOC: INF 13:56
PROVIDERS: Visit Provider Nurse Practitioner Acute Care
DX: E88.01 Alpha-1-antitrypsin deficiency (principal)
CPT/HCPCS: 96365; J0256

== ENCOUNTER 2018-09-23 12:38 | Outpatient (CLI) | payer MEDICARE, BC, SELFPAY ==
[2018-09-23 13:30] VITALS: BP 114/74; PULSE 79; RESP 18; TEMP 36.4; O2SAT 94
[2018-09-23 14:00] VITALS: BP 124/78; PULSE 81; RESP 18; O2SAT 95
[2018-09-23 14:25] VITALS: BP 136/73; PULSE 77; RESP 18; O2SAT 95
== END 2018-09-23 14:35 | disposition home or self-care (01) ==
LOC: INF 12:38
PROVIDERS: Visit Provider Nurse Practitioner Acute Care
DX: E88.01 Alpha-1-antitrypsin deficiency (principal)
CPT/HCPCS: 96365; J0256

== ENCOUNTER 2018-09-30 12:55 | Outpatient (CLI) | payer MEDICARE, BC, SELFPAY ==
[2018-09-30 13:37] VITALS: BP 112/75; PULSE 81; RESP 18; TEMP 36.7; O2SAT 96
[2018-09-30 14:07] VITALS: BP 117/85; PULSE 78; RESP 18; O2SAT 96
[2018-09-30 14:30] VITALS: BP 132/75; PULSE 74; RESP 18; O2SAT 95
== END 2018-09-30 15:00 | disposition home or self-care (01) ==
LOC: INF 13:05
PROVIDERS: Visit Provider Nurse Practitioner Acute Care
DX: E88.01 Alpha-1-antitrypsin deficiency (principal)
CPT/HCPCS: 96365; J0256; J1642

== ENCOUNTER 2018-10-07 13:17 | Outpatient (CLI) | payer MEDICARE, BC, SELFPAY ==
[2018-10-07 14:05] VITALS: BP 118/69; PULSE 89; RESP 18; TEMP 36.6; O2SAT 94
[2018-10-07 14:35] VITALS: BP 115/67; PULSE 84; RESP 18; O2SAT 95
[2018-10-07 15:05] VITALS: BP 121/69; PULSE 85; RESP 18; O2SAT 95
== END 2018-10-07 15:25 | disposition home or self-care (01) ==
LOC: INF 13:17
PROVIDERS: Visit Provider Nurse Practitioner Acute Care
DX: E88.01 Alpha-1-antitrypsin deficiency (principal)
CPT/HCPCS: 96365; J0256; J1642

== ENCOUNTER 2018-10-14 12:51 | Outpatient (CLI) | payer MEDICARE, BC, SELFPAY ==
[2018-10-14 13:35] VITALS: BP 128/74; PULSE 68; RESP 20; TEMP 36.9; O2SAT 95
[2018-10-14 14:00] VITALS: BP 142/74; PULSE 66; RESP 20; TEMP 36.9; O2SAT 95
[2018-10-14 14:30] VITALS: BP 132/74; PULSE 72; RESP 18; TEMP 37.5; O2SAT 95
== END 2018-10-14 14:35 | disposition home or self-care (01) ==
LOC: INF 12:52
PROVIDERS: Visit Provider Nurse Practitioner Acute Care
DX: E88.01 Alpha-1-antitrypsin deficiency (principal)
CPT/HCPCS: 96365; J0256

== ENCOUNTER → 2018-10-21 13:11 | Outpatient (CLI) | payer MEDICARE, BC, SELFPAY ==
[2018-10-21 13:30] VITALS: BP 126/73; PULSE 86; RESP 18; TEMP 36.8; O2SAT 93
[2018-10-21 13:45] VITALS: BMI 23.0
[2018-10-21 14:10] VITALS: BP 113/76; PULSE 88; RESP 18; TEMP 36.8; O2SAT 94
== END ==
PROVIDERS: Visit Provider Nurse Practitioner Acute Care
DX: E88.01 Alpha-1-antitrypsin deficiency (principal)
CPT/HCPCS: 96365; J0256

== ENCOUNTER 2018-10-31 12:10 | Outpatient (CLI) | payer MEDICARE, BC, SELFPAY ==
[2018-10-31 12:45] VITALS: BP 119/63; PULSE 78; RESP 18
[2018-10-31 13:15] VITALS: BP 101/68; PULSE 77; RESP 18
[2018-10-31 13:55] VITALS: BP 126/71; PULSE 72; RESP 18
== END 2018-10-31 13:55 | disposition home or self-care (01) ==
LOC: INF 12:10
PROVIDERS: Visit Provider Nurse Practitioner Acute Care
DX: E88.01 Alpha-1-antitrypsin deficiency (principal)
CPT/HCPCS: 96365; J0256

== ENCOUNTER 2018-11-04 13:26 | Outpatient (CLI) | payer MEDICARE, BC, SELFPAY ==
[2018-11-04 14:07] VITALS: BP 124/77; PULSE 74; RESP 20; TEMP 36.7; O2SAT 97
[2018-11-04 14:37] VITALS: BP 121/72; PULSE 76; RESP 20; O2SAT 96
[2018-11-04 14:50] VITALS: BP 131/76; PULSE 72; RESP 20; O2SAT 96
== END 2018-11-04 15:00 | disposition home or self-care (01) ==
LOC: INF 13:26
PROVIDERS: Visit Provider Nurse Practitioner Acute Care
DX: E88.01 Alpha-1-antitrypsin deficiency (principal)
CPT/HCPCS: 96365; J0256

== ENCOUNTER 2018-11-11 12:20 | Outpatient (CLI) | payer MEDICARE, BC, SELFPAY ==
[2018-11-11 12:39] VITALS: BP 114/69; PULSE 73; RESP 18; TEMP 36.7; O2SAT 98
[2018-11-11 13:09] VITALS: BP 119/67; PULSE 76; RESP 18; O2SAT 97
[2018-11-11 13:35] VITALS: BP 112/65; PULSE 74; RESP 18; O2SAT 97
== END 2018-11-11 13:45 | disposition home or self-care (01) ==
LOC: INF 12:20
PROVIDERS: Visit Provider Nurse Practitioner Acute Care
DX: E88.01 Alpha-1-antitrypsin deficiency (principal)
CPT/HCPCS: 96365; J0256

== ENCOUNTER 2018-11-19 12:35 | Outpatient (CLI) | payer MEDICARE, BC, SELFPAY ==
[2018-11-19 13:15] VITALS: BP 136/77; PULSE 93; RESP 18; TEMP 36.6; O2SAT 95
[2018-11-19 13:45] VITALS: BP 112/72; PULSE 82; RESP 18; O2SAT 96
== END 2018-11-19 14:05 | disposition home or self-care (01) ==
LOC: INF 12:56
PROVIDERS: Visit Provider Nurse Practitioner Acute Care
DX: E88.01 Alpha-1-antitrypsin deficiency (principal)
CPT/HCPCS: 96365; J0256

== ENCOUNTER 2018-11-25 12:44 | Outpatient (CLI) | payer MEDICARE, BC, SELFPAY ==
[2018-11-25 13:30] VITALS: BP 145/82; PULSE 72; RESP 18; TEMP 36.6; O2SAT 95
[2018-11-25 14:15] VITALS: BP 105/58; PULSE 80; RESP 18
== END 2018-11-25 14:15 | disposition home or self-care (01) ==
LOC: INF 12:44
PROVIDERS: Visit Provider Nurse Practitioner Acute Care
DX: E88.01 Alpha-1-antitrypsin deficiency (principal)
CPT/HCPCS: 96365; J0256

== ENCOUNTER 2018-12-02 13:05 | Outpatient (CLI) | payer MEDICARE, BC, SELFPAY ==
[2018-12-02 13:05] VITALS: BP 124/62; PULSE 68; RESP 18; TEMP 36.4; O2SAT 96
[2018-12-02 13:35] VITALS: BP 121/68; PULSE 69; RESP 18; O2SAT 95
[2018-12-02 13:50] VITALS: BP 119/67; PULSE 64; RESP 18; O2SAT 96
== END 2018-12-02 14:00 | disposition home or self-care (01) ==
LOC: INF 14:51
PROVIDERS: Visit Provider Nurse Practitioner Acute Care
DX: E88.01 Alpha-1-antitrypsin deficiency (principal)
CPT/HCPCS: 96365; J0256; J1642

== ENCOUNTER 2018-12-09 12:17 | Outpatient (CLI) | payer MEDICARE, BC, SELFPAY ==
[2018-12-09 13:00] VITALS: BP 108/76; PULSE 81; RESP 20; TEMP 36.9; O2SAT 97
[2018-12-09 13:50] VITALS: BP 120/79; PULSE 90; RESP 20; TEMP 36.9; O2SAT 95
== END 2018-12-09 13:50 | disposition home or self-care (01) ==
LOC: INF 12:17
PROVIDERS: Visit Provider Nurse Practitioner Acute Care
DX: E88.01 Alpha-1-antitrypsin deficiency (principal)
CPT/HCPCS: 96365; J0256

== ENCOUNTER 2018-12-16 12:45 | Outpatient (CLI) | payer MEDICARE, BC, SELFPAY ==
[2018-12-16 13:25] VITALS: BP 117/71; PULSE 78; RESP 18; TEMP 36.7; O2SAT 96
[2018-12-16 13:55] VITALS: BP 114/72; PULSE 74; RESP 18; O2SAT 97
[2018-12-16 14:50] VITALS: BP 121/71; PULSE 72; RESP 18; O2SAT 96
== END 2018-12-16 14:40 | disposition home or self-care (01) ==
LOC: INF 13:00
PROVIDERS: Visit Provider Nurse Practitioner Acute Care
DX: E88.01 Alpha-1-antitrypsin deficiency (principal)
CPT/HCPCS: 96365; 96375; J0256

== ENCOUNTER 2018-12-23 12:43 | Outpatient (CLI) | payer MEDICARE, BC, SELFPAY ==
[2018-12-23 13:05] VITALS: BP 124/67; PULSE 78; RESP 18; TEMP 36.6; O2SAT 94
[2018-12-23 13:35] VITALS: BP 121/66; PULSE 74; RESP 18; O2SAT 95
[2018-12-23 14:02] VITALS: BP 119/64; PULSE 79; RESP 18; O2SAT 95
== END 2018-12-23 14:05 | disposition home or self-care (01) ==
LOC: INF 12:43
PROVIDERS: Visit Provider Nurse Practitioner Acute Care
DX: E88.01 Alpha-1-antitrypsin deficiency (principal)
CPT/HCPCS: 96365; J0256

== ENCOUNTER 2018-12-30 11:42 | Outpatient (CLI) | payer MEDICARE, BC, SELFPAY ==
[2018-12-30 12:26] VITALS: BP 106/67; PULSE 83; RESP 18; TEMP 36.8; O2SAT 94
[2018-12-30 12:56] VITALS: BP 104/62; PULSE 81; RESP 18; O2SAT 95
[2018-12-30 13:07] VITALS: BP 110/62; PULSE 69; RESP 18; O2SAT 94
== END 2018-12-30 13:10 | disposition home or self-care (01) ==
LOC: INF 11:43
PROVIDERS: Visit Provider Nurse Practitioner Acute Care
DX: E88.01 Alpha-1-antitrypsin deficiency (principal)
CPT/HCPCS: 96365; J0256

== ENCOUNTER 2019-01-06 13:19 | Outpatient (CLI) | payer MEDICARE, BC, SELFPAY ==
[2019-01-06 13:55] VITALS: BP 110/74; PULSE 80; RESP 18; TEMP 36.6; O2SAT 93
[2019-01-06 14:25] VITALS: BP 119/71; PULSE 84; RESP 18; O2SAT 94
[2019-01-06 14:45] VITALS: BP 115/70; PULSE 82; RESP 18; O2SAT 93
== END 2019-01-06 14:45 | disposition home or self-care (01) ==
LOC: INF 13:19
PROVIDERS: Visit Provider Nurse Practitioner Acute Care
DX: E88.01 Alpha-1-antitrypsin deficiency (principal)
CPT/HCPCS: 96365; J0256

== ENCOUNTER 2019-01-13 13:15 | Outpatient (CLI) | payer MEDICARE, BC, SELFPAY ==
[2019-01-13 13:55] VITALS: BP 115/73; PULSE 57; RESP 18; O2SAT 98
[2019-01-13 15:00] VITALS: BP 92/66; PULSE 78; RESP 18; O2SAT 96
== END 2019-01-13 15:00 | disposition home or self-care (01) ==
LOC: INF 13:20
PROVIDERS: Visit Provider Nurse Practitioner Acute Care
DX: E88.01 Alpha-1-antitrypsin deficiency (principal)
CPT/HCPCS: 96365; J0256

== ENCOUNTER 2019-01-20 13:10 | Outpatient (CLI) | payer MEDICARE, BC, SELFPAY ==
[2019-01-20 13:00] VITALS: BP 106/82; PULSE 71; RESP 18; TEMP 36.6; O2SAT 94
[2019-01-20 14:05] VITALS: BP 103/57; PULSE 67; RESP 20; TEMP 36.6; O2SAT 95
== END 2019-01-20 14:05 | disposition home or self-care (01) ==
LOC: INF 13:10
PROVIDERS: Visit Provider Nurse Practitioner Acute Care
DX: E88.01 Alpha-1-antitrypsin deficiency (principal)
CPT/HCPCS: 96365; J0256; J1642

== ENCOUNTER 2019-01-28 14:05 | Outpatient (CLI) | payer MEDICARE, BC, SELFPAY ==
[2019-01-28 14:56] VITALS: BP 115/64; PULSE 80; RESP 20; O2SAT 93
[2019-01-28 15:40] VITALS: BP 91/62; PULSE 80; RESP 20; O2SAT 96
== END 2019-01-28 16:00 | disposition home or self-care (01) ==
LOC: INF 14:12
PROVIDERS: Visit Provider Nurse Practitioner Acute Care
DX: E88.01 Alpha-1-antitrypsin deficiency (principal)
CPT/HCPCS: 96365; J0256; J1642

== ENCOUNTER 2019-02-03 11:43 | Outpatient (CLI) | payer MEDICARE, BC, SELFPAY ==
[2019-02-03 12:37] VITALS: BP 109/68; PULSE 74; RESP 18; TEMP 36.4; O2SAT 96
[2019-02-03 13:07] VITALS: BP 110/70; PULSE 76; RESP 18; O2SAT 95
[2019-02-03 13:15] VITALS: BP 109/75; PULSE 75; RESP 18; O2SAT 96
== END 2019-02-03 13:15 | disposition home or self-care (01) ==
LOC: INF 11:43
PROVIDERS: Visit Provider Nurse Practitioner Acute Care
DX: E88.01 Alpha-1-antitrypsin deficiency (principal); Z45.2 Encounter for adjustment and management of vascular access device
CPT/HCPCS: 96365; J0256; J1642

== ENCOUNTER 2019-02-13 12:20 | Outpatient (CLI) | payer MEDICARE, BC, SELFPAY ==
[2019-02-13 13:40] VITALS: BP 95/60; PULSE 78; RESP 18; O2SAT 96
[2019-02-13 14:15] VITALS: BP 112/96; PULSE 55; RESP 18; O2SAT 97
== END 2019-02-13 14:40 | disposition home or self-care (01) ==
LOC: INF 12:33
PROVIDERS: Visit Provider Nurse Practitioner Acute Care
DX: E88.01 Alpha-1-antitrypsin deficiency (principal)
CPT/HCPCS: 96365; J0256

== ENCOUNTER 2019-02-17 13:10 | Outpatient (CLI) | payer MEDICARE, BC, SELFPAY ==
[2019-02-17 13:52] VITALS: BP 95/46; PULSE 69; RESP 20; TEMP 36.6; O2SAT 96
[2019-02-17 14:22] VITALS: BP 101/50; PULSE 67; RESP 20; O2SAT 95
[2019-02-17 14:38] VITALS: BP 111/52; PULSE 69; RESP 20; O2SAT 95
== END 2019-02-17 14:52 | disposition home or self-care (01) ==
LOC: INF 13:17
PROVIDERS: Visit Provider Nurse Practitioner Acute Care
DX: E88.01 Alpha-1-antitrypsin deficiency (principal)
CPT/HCPCS: 96365; J0256

== ENCOUNTER → 2019-02-25 13:05 | Outpatient (CLI) | payer MEDICARE, BC, SELFPAY ==
[2019-02-25 13:50] VITALS: BP 92/56; PULSE 79; RESP 20; O2SAT 91
[2019-02-25 14:25] VITALS: BP 109/80; PULSE 96; RESP 20
== END ==
PROVIDERS: Visit Provider Nurse Practitioner Acute Care
DX: E88.01 Alpha-1-antitrypsin deficiency (principal)
CPT/HCPCS: 96365; J0256

== ENCOUNTER 2019-03-03 14:02 | Outpatient (CLI) | payer MEDICARE, BC, SELFPAY ==
[2019-03-03 14:55] VITALS: BP 103/54; PULSE 76; RESP 20; TEMP 36.5; O2SAT 93
[2019-03-03 15:25] VITALS: BP 110/61; PULSE 78; RESP 20; O2SAT 94
[2019-03-03 15:47] VITALS: BP 107/56; PULSE 58; RESP 20; O2SAT 95
== END 2019-03-03 15:47 | disposition home or self-care (01) ==
LOC: INF 14:02
PROVIDERS: Visit Provider Nurse Practitioner Acute Care
DX: E88.01 Alpha-1-antitrypsin deficiency (principal)
CPT/HCPCS: 96365; J0256

== ENCOUNTER 2019-03-10 13:38 | Outpatient (CLI) | payer MEDICARE, BC, SELFPAY ==
[2019-03-10 14:08] VITALS: BP 80/49; PULSE 96; RESP 18; O2SAT 94
[2019-03-10 15:13] VITALS: BP 86/57; PULSE 86; RESP 20; O2SAT 94
== END 2019-03-10 15:13 | disposition home or self-care (01) ==
LOC: INF 13:38
PROVIDERS: Visit Provider Nurse Practitioner Acute Care
DX: E88.01 Alpha-1-antitrypsin deficiency (principal)
CPT/HCPCS: 96365; J0256

== ENCOUNTER 2019-03-18 13:15 | Outpatient (CLI) | payer MEDICARE, BC, SELFPAY ==
[2019-03-18 13:50] VITALS: BP 99/61; PULSE 83; RESP 18; O2SAT 97
[2019-03-18 15:15] VITALS: BP 118/76; PULSE 78; RESP 20; O2SAT 94
== END 2019-03-18 15:15 | disposition home or self-care (01) ==
LOC: INF 13:21
PROVIDERS: Visit Provider Nurse Practitioner Acute Care
DX: E88.01 Alpha-1-antitrypsin deficiency (principal)
CPT/HCPCS: 96365; J0256

== ENCOUNTER 2019-03-24 13:59 | Outpatient (CLI) | payer MEDICARE, BC, SELFPAY ==
[2019-03-24 14:20] VITALS: BP 119/69; PULSE 90; RESP 18; TEMP 36.6; O2SAT 94
[2019-03-24 14:50] VITALS: BP 123/67; PULSE 87; RESP 18; O2SAT 95
[2019-03-24 15:08] VITALS: BP 117/69; PULSE 84; RESP 18; O2SAT 95
== END 2019-03-24 15:19 | disposition home or self-care (01) ==
LOC: INF 13:59
PROVIDERS: Visit Provider Nurse Practitioner Acute Care
DX: E88.01 Alpha-1-antitrypsin deficiency (principal)
CPT/HCPCS: 96365; J0256

== ENCOUNTER 2019-03-31 13:32 | Outpatient (CLI) | payer MEDICARE, BC, SELFPAY ==
[2019-03-31 14:28] VITALS: BP 122/61; PULSE 84; RESP 20; TEMP 36.5; O2SAT 94
[2019-03-31 14:58] VITALS: BP 120/61; PULSE 88; RESP 20; O2SAT 95
[2019-03-31 15:27] VITALS: BP 117/64; PULSE 81; RESP 20; O2SAT 94
== END 2019-03-31 15:28 | disposition home or self-care (01) ==
LOC: INF 13:32
PROVIDERS: Visit Provider Nurse Practitioner Acute Care
DX: E88.01 Alpha-1-antitrypsin deficiency (principal)
CPT/HCPCS: 96365; J0256

== ENCOUNTER 2019-04-08 12:20 | Outpatient (CLI) | payer MEDICARE, BC, SELFPAY ==
[2019-04-08 12:40] VITALS: BP 92/70; PULSE 89; RESP 20; O2SAT 94
[2019-04-08 14:25] VITALS: BP 108/72; PULSE 91; RESP 18; O2SAT 90
== END 2019-04-08 14:25 | disposition home or self-care (01) ==
LOC: INF 12:20
PROVIDERS: Visit Provider Nurse Practitioner Acute Care
DX: E88.01 Alpha-1-antitrypsin deficiency (principal)
CPT/HCPCS: 96365; J0256

== ENCOUNTER 2019-04-13 12:55 | Outpatient (CLI) | payer MEDICARE, BC, SELFPAY ==
[2019-04-13 13:27] VITALS: BP 101/54; PULSE 80; RESP 22; TEMP 36.5; O2SAT 94
[2019-04-13 14:10] VITALS: BP 104/58; PULSE 77; RESP 22; O2SAT 95
== END 2019-04-13 14:25 | disposition home or self-care (01) ==
LOC: INF 12:55
PROVIDERS: Visit Provider Nurse Practitioner Acute Care
DX: E88.01 Alpha-1-antitrypsin deficiency (principal)
CPT/HCPCS: 96365; J0256

== ENCOUNTER 2019-04-21 14:05 | Outpatient (CLI) | payer MEDICARE, BC, SELFPAY ==
[2019-04-21 14:30] VITALS: BP 93/52; PULSE 81; RESP 22; TEMP 36.6; O2SAT 92
[2019-04-21 15:00] VITALS: BP 96/55; PULSE 82; RESP 22; O2SAT 94
[2019-04-21 15:20] VITALS: BP 98/58; PULSE 86; RESP 20; O2SAT 94
== END 2019-04-21 15:20 | disposition home or self-care (01) ==
LOC: INF 14:05
PROVIDERS: Visit Provider Nurse Practitioner Acute Care
DX: E88.01 Alpha-1-antitrypsin deficiency (principal)
CPT/HCPCS: 96365; J0256

== ENCOUNTER 2019-04-29 13:57 | Outpatient (CLI) | payer MEDICARE, BC, SELFPAY ==
[2019-04-29 14:10] VITALS: BP 119/73; PULSE 84; RESP 20; O2SAT 92
[2019-04-29 15:20] VITALS: BP 113/50; PULSE 94; RESP 20
== END 2019-04-29 15:20 | disposition home or self-care (01) ==
LOC: INF 13:57
PROVIDERS: Visit Provider Nurse Practitioner Acute Care
DX: E88.01 Alpha-1-antitrypsin deficiency (principal)
CPT/HCPCS: 96365; J0256; J1642

== ENCOUNTER 2019-05-06 13:26 | Outpatient (CLI) | payer MEDICARE, BC, SELFPAY ==
[2019-05-06 13:47] VITALS: BP 97/55; PULSE 89; RESP 22; TEMP 36.7; O2SAT 93
[2019-05-06 14:17] VITALS: BP 95/52; PULSE 84; RESP 22; O2SAT 94
[2019-05-06 14:35] VITALS: BP 99/55; PULSE 81; RESP 22; O2SAT 94
== END 2019-05-06 14:35 | disposition home or self-care (01) ==
LOC: INF 13:26
PROVIDERS: Visit Provider Nurse Practitioner Acute Care
DX: E88.01 Alpha-1-antitrypsin deficiency (principal)
CPT/HCPCS: 96365; J0256

== ENCOUNTER 2019-05-12 14:12 | Outpatient (CLI) | payer MEDICARE, BC, SELFPAY ==
[2019-05-12 14:50] VITALS: BP 85/64; PULSE 105; RESP 20; O2SAT 93
[2019-05-12 16:15] VITALS: BP 97/52; PULSE 86; RESP 20; O2SAT 92
== END 2019-05-12 16:15 | disposition home or self-care (01) ==
LOC: INF 14:12
PROVIDERS: Visit Provider Nurse Practitioner Acute Care
DX: E88.01 Alpha-1-antitrypsin deficiency (principal)
CPT/HCPCS: 96365; J0256

== ENCOUNTER 2019-05-19 15:39 | Outpatient (CLI) | payer MEDICARE, BC, SELFPAY ==
[2019-05-19 15:52] VITALS: BP 102/74; PULSE 91; RESP 18; TEMP 36.6; O2SAT 91
[2019-05-19 16:22] VITALS: BP 109/78; PULSE 90; RESP 18; O2SAT 92
[2019-05-19 16:40] VITALS: BP 103/76; PULSE 89; RESP 18; O2SAT 92
== END 2019-05-19 16:44 | disposition home or self-care (01) ==
LOC: INF 15:39
PROVIDERS: Visit Provider Nurse Practitioner Acute Care
DX: E88.01 Alpha-1-antitrypsin deficiency (principal)
CPT/HCPCS: 96365; J0256; J1642

== ENCOUNTER 2019-05-26 14:36 | Outpatient (CLI) | payer MEDICARE, BC, SELFPAY ==
[2019-05-26 15:21] VITALS: BP 97/55; PULSE 83; RESP 18; TEMP 36.6; O2SAT 94
[2019-05-26 15:50] VITALS: BP 98/59; PULSE 78; RESP 18; TEMP 36.6; O2SAT 93
[2019-05-26 16:17] VITALS: BP 106/54; PULSE 79; RESP 20; TEMP 36.5; O2SAT 94
== END 2019-05-26 16:24 | disposition home or self-care (01) ==
LOC: INF 14:36
PROVIDERS: Visit Provider Nurse Practitioner Acute Care
DX: E88.01 Alpha-1-antitrypsin deficiency (principal)
CPT/HCPCS: 96365; J0256

== ENCOUNTER 2019-06-03 15:31 | Outpatient (CLI) | payer MEDICARE, BC, SELFPAY ==
[2019-06-03 16:06] VITALS: BP 114/76; PULSE 84; RESP 20; TEMP 36.6; O2SAT 94
[2019-06-03 16:15] VITALS: BP 108/59; PULSE 78; RESP 18; TEMP 36.5; O2SAT 94
[2019-06-03 16:30] VITALS: BP 112/69; PULSE 69; RESP 20; TEMP 36.6; O2SAT 93
[2019-06-03 16:45] VITALS: BP 114/72; PULSE 70; RESP 18; TEMP 36.6; O2SAT 94
[2019-06-03 16:56] VITALS: BP 106/62; PULSE 64; RESP 20; TEMP 36.5; O2SAT 94
== END 2019-06-03 17:05 | disposition home or self-care (01) ==
LOC: INF 15:31
PROVIDERS: Visit Provider Nurse Practitioner Acute Care
DX: E88.01 Alpha-1-antitrypsin deficiency (principal)
CPT/HCPCS: 96365; J0256

== ENCOUNTER 2019-06-10 14:42 | Outpatient (CLI) | payer MEDICARE, BC, SELFPAY ==
[2019-06-10 14:48] VITALS: BP 114/63; PULSE 79; RESP 18; TEMP 36.6; O2SAT 95
[2019-06-10 15:18] VITALS: BP 111/69; PULSE 76; RESP 18; O2SAT 95
== END 2019-06-10 15:40 | disposition home or self-care (01) ==
LOC: INF 14:42
PROVIDERS: Visit Provider Nurse Practitioner Acute Care
DX: E88.01 Alpha-1-antitrypsin deficiency (principal)
CPT/HCPCS: 96365; J0256

== ENCOUNTER 2019-06-16 13:41 | Outpatient (CLI) | payer MEDICARE, BC, SELFPAY ==
[2019-06-16 14:09] VITALS: BP 124/69; PULSE 92; RESP 18; TEMP 36.6; O2SAT 92
[2019-06-16 14:39] VITALS: BP 120/67; PULSE 94; RESP 18; O2SAT 93
[2019-06-16 15:00] VITALS: BP 121/69; PULSE 91; RESP 18; O2SAT 93
== END 2019-06-16 15:00 | disposition home or self-care (01) ==
LOC: INF 13:41
PROVIDERS: Visit Provider Nurse Practitioner Acute Care
DX: E88.01 Alpha-1-antitrypsin deficiency (principal)
CPT/HCPCS: 96365; J0256

== ENCOUNTER 2019-06-23 14:34 | Outpatient (CLI) | payer MEDICARE, BC, SELFPAY ==
[2019-06-23 15:00] VITALS: BP 116/74; PULSE 76; RESP 22; TEMP 36.6; O2SAT 93
[2019-06-23 15:15] VITALS: BP 110/68; PULSE 78; RESP 20; TEMP 36.6; O2SAT 93
[2019-06-23 15:45] VITALS: BP 108/72; PULSE 72; RESP 20; TEMP 36.6; O2SAT 94
== END 2019-06-23 15:45 | disposition home or self-care (01) ==
LOC: INF 14:34
PROVIDERS: Visit Provider Nurse Practitioner Acute Care
DX: E88.01 Alpha-1-antitrypsin deficiency (principal)
CPT/HCPCS: 96365; J0256

== ENCOUNTER 2019-07-01 13:28 | Outpatient (CLI) | payer MEDICARE, BC, SELFPAY ==
[2019-07-01 14:20] VITALS: BP 143/68; PULSE 74; RESP 20; TEMP 36.5; O2SAT 95
[2019-07-01 14:50] VITALS: BP 138/62; PULSE 78; RESP 20; O2SAT 95
[2019-07-01 15:05] VITALS: BP 136/68; PULSE 76; RESP 20; O2SAT 96
== END 2019-07-01 15:05 | disposition home or self-care (01) ==
LOC: INF 13:28
PROVIDERS: Visit Provider Nurse Practitioner Acute Care
DX: E88.01 Alpha-1-antitrypsin deficiency (principal)
CPT/HCPCS: 96365; J0256

== ENCOUNTER 2019-07-07 13:32 | Outpatient (CLI) | payer MEDICARE, BC, SELFPAY ==
[2019-07-07 14:01] VITALS: BP 115/67; PULSE 75; RESP 20; TEMP 36.6; O2SAT 93
[2019-07-07 14:26] VITALS: BP 121/72; PULSE 77; RESP 20; TEMP 36.6; O2SAT 94
[2019-07-07 15:13] VITALS: BP 114/71; PULSE 86; RESP 18; TEMP 36.6; O2SAT 94
[2019-07-07 15:21] VITALS: BP 116/69; PULSE 72; RESP 18; TEMP 36.5; O2SAT 94
== END 2019-07-07 15:23 | disposition home or self-care (01) ==
LOC: INF 13:32
PROVIDERS: Visit Provider Nurse Practitioner Acute Care
DX: E88.01 Alpha-1-antitrypsin deficiency (principal)
CPT/HCPCS: 96365; J0256

== ENCOUNTER 2019-07-14 14:16 | Outpatient (CLI) | payer MEDICARE, BC, SELFPAY ==
[2019-07-14 14:36] VITALS: BP 93/58; PULSE 74; RESP 20; TEMP 36.5; O2SAT 94
[2019-07-14 15:06] VITALS: BP 101/59; PULSE 78; RESP 20; O2SAT 93
[2019-07-14 15:15] VITALS: BP 99/56; PULSE 77; RESP 20; O2SAT 94
== END 2019-07-14 15:15 | disposition home or self-care (01) ==
LOC: INF 14:16
PROVIDERS: Visit Provider Nurse Practitioner Acute Care
DX: E88.01 Alpha-1-antitrypsin deficiency (principal)
CPT/HCPCS: 96365; J0256

== ENCOUNTER 2019-07-24 12:15 | Outpatient (CLI) | payer MEDICARE, BC, SELFPAY ==
[2019-07-24 12:40] VITALS: BP 138/91; PULSE 85; RESP 20; O2SAT 94
[2019-07-24 13:30] VITALS: BP 130/93; PULSE 81; RESP 18; O2SAT 94
== END 2019-07-24 13:30 | disposition home or self-care (01) ==
LOC: INF 12:15
PROVIDERS: Visit Provider Nurse Practitioner Acute Care
DX: E88.01 Alpha-1-antitrypsin deficiency (principal)
CPT/HCPCS: 96365; J0256; J1642

== ENCOUNTER 2019-07-28 14:25 | Outpatient (CLI) | payer MEDICARE, BC, SELFPAY ==
[2019-07-28 13:55] VITALS: BP 95/62; PULSE 89; RESP 18; TEMP 36.6; O2SAT 94
[2019-07-28 14:15] VITALS: BP 108/69; PULSE 78; RESP 20; TEMP 36.7; O2SAT 95
[2019-07-28 14:30] VITALS: BP 104/62; PULSE 80; RESP 20; TEMP 36.7; O2SAT 94
[2019-07-28 14:58] VITALS: BP 110/64; PULSE 75; RESP 18; TEMP 36.7; O2SAT 94
== END 2019-07-28 15:05 | disposition home or self-care (01) ==
LOC: INF 14:25
PROVIDERS: Visit Provider Nurse Practitioner Acute Care
DX: E88.01 Alpha-1-antitrypsin deficiency (principal)
CPT/HCPCS: 96365; J0256

== ENCOUNTER 2019-08-05 13:29 | Outpatient (CLI) | payer MEDICARE, BC, SELFPAY ==
[2019-08-05 14:03] VITALS: BP 93/68; PULSE 86; RESP 20
[2019-08-05 14:40] VITALS: BP 108/70; PULSE 83; RESP 20; O2SAT 93
== END 2019-08-05 14:40 | disposition home or self-care (01) ==
LOC: INF 13:29
PROVIDERS: Visit Provider Nurse Practitioner Acute Care
DX: E88.01 Alpha-1-antitrypsin deficiency (principal)
CPT/HCPCS: 96365; J0256

== ENCOUNTER 2019-08-11 13:40 | Outpatient (CLI) | payer MEDICARE, BC, SELFPAY ==
[2019-08-11 14:06] VITALS: BP 120/75; PULSE 85; RESP 18; TEMP 36.4; O2SAT 99
[2019-08-11 14:36] VITALS: BP 117/77; PULSE 81; RESP 18; O2SAT 98
[2019-08-11 14:48] VITALS: BP 126/66; PULSE 92; RESP 18; O2SAT 98
== END 2019-08-11 15:19 | disposition home or self-care (01) ==
LOC: INF 13:40
PROVIDERS: Visit Provider Nurse Practitioner Acute Care
DX: E88.01 Alpha-1-antitrypsin deficiency (principal)
CPT/HCPCS: 96365; J0256; J1642

== ENCOUNTER 2019-08-17 13:07 | Outpatient (CLI) | payer MEDICARE, BC, SELFPAY ==
[2019-08-17 13:25] VITALS: BP 95/52; PULSE 85; RESP 18
[2019-08-17 15:15] VITALS: BP 105/51; PULSE 84; RESP 20
== END 2019-08-17 15:15 | disposition home or self-care (01) ==
LOC: INF 13:07
PROVIDERS: Visit Provider Nurse Practitioner Acute Care
DX: E88.01 Alpha-1-antitrypsin deficiency (principal)
CPT/HCPCS: 96365; J0256; J1642

== ENCOUNTER 2019-08-24 14:38 | Outpatient (CLI) | payer MEDICARE, BC, SELFPAY ==
[2019-08-24 14:47] VITALS: BP 127/74; PULSE 79; RESP 20; O2SAT 96
[2019-08-24 16:19] VITALS: BP 120/79; PULSE 82; RESP 18; O2SAT 93
== END 2019-08-24 16:21 | disposition home or self-care (01) ==
LOC: INF 14:38
PROVIDERS: Visit Provider Nurse Practitioner Acute Care
DX: E88.01 Alpha-1-antitrypsin deficiency (principal)
CPT/HCPCS: 96365; J0256; J1642

== ENCOUNTER 2019-09-01 12:35 | Outpatient (CLI) | payer MEDICARE, BC, SELFPAY ==
[2019-09-01 13:05] VITALS: BP 117/77; PULSE 88; RESP 22; TEMP 36.4; O2SAT 94
[2019-09-01 13:35] VITALS: BP 114/69; PULSE 84; RESP 22; O2SAT 93
[2019-09-01 13:55] VITALS: BP 120/67; PULSE 81; RESP 22; O2SAT 94
== END 2019-09-01 14:05 | disposition home or self-care (01) ==
LOC: INF 12:35
PROVIDERS: Visit Provider Nurse Practitioner Acute Care
DX: E88.01 Alpha-1-antitrypsin deficiency (principal); J43.9 Emphysema, unspecified; J43.8 Other emphysema; J96.11 Chronic respiratory failure with hypoxia
CPT/HCPCS: 96365; J0256; J1642

== ENCOUNTER 2019-09-09 12:42 | Outpatient (CLI) | payer MEDICARE, BC, SELFPAY ==
[2019-09-09 13:25] VITALS: BP 111/75; PULSE 87; RESP 18; TEMP 36.6; O2SAT 93
[2019-09-09 13:55] VITALS: BP 116/79; PULSE 84; RESP 18; O2SAT 94
[2019-09-09 14:25] VITALS: BP 113/72; PULSE 81; RESP 18; O2SAT 93
== END 2019-09-09 14:25 | disposition home or self-care (01) ==
LOC: INF 12:42
PROVIDERS: Visit Provider Nurse Practitioner Acute Care
DX: E88.01 Alpha-1-antitrypsin deficiency (principal); J43.9 Emphysema, unspecified; J43.8 Other emphysema; J96.11 Chronic respiratory failure with hypoxia
CPT/HCPCS: 96365; J0256; J1642

== ENCOUNTER 2019-09-23 13:00 | Outpatient (CLI) | payer MEDICARE, SELFPAY ==
[2019-09-23 13:30] VITALS: BP 128/66; PULSE 89; RESP 22; O2SAT 93
[2019-09-23 14:00] VITALS: BP 140/80; PULSE 91; RESP 20
== END 2019-09-23 15:00 | disposition home or self-care (01) ==
LOC: INF 13:04
PROVIDERS: Visit Provider Nurse Practitioner Acute Care
DX: E88.01 Alpha-1-antitrypsin deficiency (principal); J43.8 Other emphysema; J43.9 Emphysema, unspecified; J96.11 Chronic respiratory failure with hypoxia
CPT/HCPCS: 96365; J0256; J1642

== ENCOUNTER 2019-09-29 13:45 | Outpatient (CLI) | payer MEDICARE, BC, SELFPAY ==
[2019-09-29 14:12] VITALS: BP 104/62; PULSE 85; RESP 20; TEMP 36.6; O2SAT 94
[2019-09-29 14:30] VITALS: BP 102/59; PULSE 82; RESP 20; TEMP 36.7; O2SAT 93
[2019-09-29 15:00] VITALS: BP 110/62; PULSE 79; RESP 20; TEMP 36.7; O2SAT 94
[2019-09-29 15:30] VITALS: BP 99/58; PULSE 82; RESP 18; TEMP 36.6; O2SAT 94
== END 2019-09-29 15:30 | disposition home or self-care (01) ==
LOC: INF 13:45
PROVIDERS: Visit Provider Nurse Practitioner Acute Care
DX: E88.01 Alpha-1-antitrypsin deficiency (principal); J43.8 Other emphysema; J96.11 Chronic respiratory failure with hypoxia; J43.9 Emphysema, unspecified
CPT/HCPCS: 96365; J0256; J1642

== ENCOUNTER 2019-10-06 14:27 | Outpatient (CLI) | payer MEDICARE, SELFPAY ==
[2019-10-06 15:00] VITALS: BP 87/47; PULSE 88; RESP 20; TEMP 36.6; O2SAT 94
[2019-10-06 15:30] VITALS: BP 95/59; PULSE 84; RESP 18; O2SAT 95
[2019-10-06 15:51] VITALS: BP 101/52; PULSE 82; RESP 18; O2SAT 95
== END 2019-10-06 16:50 | disposition home or self-care (01) ==
LOC: INF 14:27
PROVIDERS: Visit Provider Nurse Practitioner Acute Care
DX: E88.01 Alpha-1-antitrypsin deficiency (principal); J43.9 Emphysema, unspecified; J43.8 Other emphysema; J96.11 Chronic respiratory failure with hypoxia
CPT/HCPCS: 96365; J0256; J1642

== ENCOUNTER 2019-10-13 13:30 | Outpatient (CLI) | payer MEDICARE, SELFPAY ==
[2019-10-13 13:45] VITALS: BP 106/67; PULSE 83; RESP 18; TEMP 36.7; O2SAT 92
[2019-10-13 14:15] VITALS: BP 115/67; PULSE 81; RESP 18; O2SAT 93
[2019-10-13 14:30] VITALS: BP 123/78; PULSE 80; RESP 18; O2SAT 93
== END 2019-10-13 14:30 | disposition home or self-care (01) ==
LOC: INF 13:36
PROVIDERS: Visit Provider Nurse Practitioner Acute Care
DX: E88.01 Alpha-1-antitrypsin deficiency (principal); J43.9 Emphysema, unspecified; J43.8 Other emphysema; J96.11 Chronic respiratory failure with hypoxia
CPT/HCPCS: 96365; J0256; J1642

== ENCOUNTER 2019-10-20 13:45 | Outpatient (CLI) | payer MEDICARE, SELFPAY ==
[2019-10-20 14:06] VITALS: BP 87/54; PULSE 96; RESP 20; TEMP 36.4; O2SAT 93
[2019-10-20 14:36] VITALS: BP 91/59; PULSE 94; RESP 20; O2SAT 94
[2019-10-20 15:11] VITALS: BP 97/45; PULSE 85; RESP 20; O2SAT 93
== END 2019-10-20 15:18 | disposition home or self-care (01) ==
LOC: INF 13:50
PROVIDERS: Visit Provider Nurse Practitioner Acute Care
DX: E88.01 Alpha-1-antitrypsin deficiency (principal); J43.9 Emphysema, unspecified; J43.8 Other emphysema; J96.11 Chronic respiratory failure with hypoxia
CPT/HCPCS: 96365; J0256; J1642

== ENCOUNTER 2019-10-27 13:17 | Outpatient (CLI) | payer MEDICARE, SELFPAY ==
[2019-10-27 13:30] VITALS: BP 131/58; PULSE 79; RESP 18; TEMP 36.9; O2SAT 95
[2019-10-27 14:44] VITALS: BP 112/58; PULSE 83; RESP 20; O2SAT 98
== END 2019-10-27 14:44 | disposition home or self-care (01) ==
LOC: INF 13:17
PROVIDERS: Visit Provider Nurse Practitioner Acute Care
DX: E88.01 Alpha-1-antitrypsin deficiency (principal); J43.9 Emphysema, unspecified; J43.8 Other emphysema; J96.11 Chronic respiratory failure with hypoxia
CPT/HCPCS: 96365; J0256; J1642

== ENCOUNTER 2019-11-03 14:19 | Outpatient (CLI) | payer MEDICARE, SELFPAY ==
[2019-11-03 14:35] VITALS: BP 101/60; PULSE 77; RESP 20; O2SAT 94
[2019-11-03 15:25] VITALS: BP 107/63; PULSE 76; RESP 18
== END 2019-11-03 15:25 | disposition home or self-care (01) ==
LOC: INF 14:19
PROVIDERS: Visit Provider Nurse Practitioner Acute Care
DX: E88.01 Alpha-1-antitrypsin deficiency (principal); J43.9 Emphysema, unspecified; J43.8 Other emphysema; J96.11 Chronic respiratory failure with hypoxia
CPT/HCPCS: 96365; J0256; J1642

== ENCOUNTER 2019-11-10 14:15 | Outpatient (CLI) | payer MEDICARE, SELFPAY ==
[2019-11-10 14:55] VITALS: BP 115/69; PULSE 80; RESP 18; TEMP 37.1; O2SAT 94
[2019-11-10 15:25] VITALS: BP 117/61; PULSE 79; RESP 18; O2SAT 95
[2019-11-10 15:40] VITALS: BP 122/64; PULSE 81; RESP 18; O2SAT 95
== END 2019-11-10 15:40 | disposition home or self-care (01) ==
LOC: INF 14:16
PROVIDERS: Visit Provider Nurse Practitioner Acute Care
DX: E88.01 Alpha-1-antitrypsin deficiency (principal); J43.9 Emphysema, unspecified; J43.8 Other emphysema; J96.11 Chronic respiratory failure with hypoxia
CPT/HCPCS: 96365; J0256; J1642

== ENCOUNTER 2019-11-17 14:22 | Outpatient (CLI) | payer MEDICARE, SELFPAY ==
[2019-11-17 14:29] VITALS: BP 139/59; PULSE 84; RESP 18; TEMP 36.4; O2SAT 95
[2019-11-17 14:59] VITALS: BP 131/62; PULSE 88; RESP 18; O2SAT 95
[2019-11-17 15:20] VITALS: BP 134/66; PULSE 79; RESP 18; O2SAT 94
== END 2019-11-17 15:25 | disposition home or self-care (01) ==
LOC: INF 14:22
PROVIDERS: Visit Provider Nurse Practitioner Acute Care
DX: E88.01 Alpha-1-antitrypsin deficiency (principal); J43.9 Emphysema, unspecified; J43.8 Other emphysema; J96.11 Chronic respiratory failure with hypoxia
CPT/HCPCS: 96365; J0256; J1642

== ENCOUNTER 2019-11-24 13:47 | Outpatient (CLI) | payer MEDICARE, SELFPAY ==
[2019-11-24 14:00] VITALS: BP 112/63; PULSE 68; RESP 20; TEMP 36.9; O2SAT 93
[2019-11-24 14:55] VITALS: BP 118/74; PULSE 68; RESP 20; TEMP 36.9; O2SAT 93
== END 2019-11-24 15:23 | disposition home or self-care (01) ==
LOC: INF 13:47
PROVIDERS: Visit Provider Nurse Practitioner Acute Care
DX: E88.01 Alpha-1-antitrypsin deficiency (principal); J43.9 Emphysema, unspecified; J43.8 Other emphysema; J96.11 Chronic respiratory failure with hypoxia
CPT/HCPCS: 96365; J0256; J1642

== ENCOUNTER 2019-12-01 14:12 | Outpatient (CLI) | payer MEDICARE, SELFPAY ==
[2019-12-01 14:24] VITALS: BP 122/57; PULSE 83; RESP 22; TEMP 37.1; O2SAT 94
[2019-12-01 14:54] VITALS: BP 119/52; PULSE 81; RESP 22; O2SAT 95
[2019-12-01 15:20] VITALS: BP 124/59; PULSE 80; RESP 20; O2SAT 95
== END 2019-12-01 16:06 | disposition home or self-care (01) ==
LOC: INF 14:12
PROVIDERS: Visit Provider Nurse Practitioner Acute Care
DX: E88.01 Alpha-1-antitrypsin deficiency (principal); J43.9 Emphysema, unspecified; J43.8 Other emphysema; J96.11 Chronic respiratory failure with hypoxia; Z87.891 Personal history of nicotine dependence
CPT/HCPCS: 96365; J0256; J1642

== ENCOUNTER 2019-12-08 13:24 | Outpatient (CLI) | payer MEDICARE, SELFPAY ==
[2019-12-08 14:01] VITALS: BP 111/68; PULSE 84; RESP 22; TEMP 36.3; O2SAT 96
[2019-12-08 14:31] VITALS: BP 116/62; PULSE 88; RESP 20; O2SAT 97
[2019-12-08 14:53] VITALS: BP 110/67; PULSE 85; RESP 20; O2SAT 96
== END 2019-12-08 15:14 | disposition home or self-care (01) ==
LOC: INF 13:29
PROVIDERS: Visit Provider Nurse Practitioner Acute Care
DX: E88.01 Alpha-1-antitrypsin deficiency (principal); J43.9 Emphysema, unspecified; J43.8 Other emphysema; J96.11 Chronic respiratory failure with hypoxia
CPT/HCPCS: 96365; J0256; J1642

== ENCOUNTER 2019-12-17 12:40 | Outpatient (CLI) | payer MEDICARE, SELFPAY ==
[2019-12-17 13:09] VITALS: BP 107/55; PULSE 75; RESP 18; TEMP 36.3; O2SAT 96
[2019-12-17 13:39] VITALS: BP 110/59; PULSE 79; RESP 18; O2SAT 97
[2019-12-17 13:55] VITALS: BP 101/60; PULSE 78; RESP 18; O2SAT 96
== END 2019-12-17 14:15 | disposition home or self-care (01) ==
LOC: INF 12:53
PROVIDERS: Visit Provider Nurse Practitioner Acute Care
DX: E88.01 Alpha-1-antitrypsin deficiency (principal); J43.9 Emphysema, unspecified; J43.8 Other emphysema; J96.11 Chronic respiratory failure with hypoxia
CPT/HCPCS: 96365; J0256; J1642

== ENCOUNTER 2019-12-22 12:54 | Outpatient (CLI) | payer MEDICARE, SELFPAY ==
[2019-12-22 12:54] VITALS: BP 122/70; PULSE 68; RESP 20; TEMP 36.9; O2SAT 93
[2019-12-22 14:00] VITALS: BP 120/74; PULSE 68; RESP 20
== END 2019-12-22 14:00 | disposition home or self-care (01) ==
LOC: INF 12:54
PROVIDERS: Visit Provider Nurse Practitioner Acute Care
DX: E88.01 Alpha-1-antitrypsin deficiency (principal); J43.9 Emphysema, unspecified; J43.8 Other emphysema; J96.11 Chronic respiratory failure with hypoxia
CPT/HCPCS: 96365; J0256; J1642

== ENCOUNTER 2019-12-29 13:02 | Outpatient (CLI) | payer MEDICARE, SELFPAY ==
[2019-12-29 13:32] VITALS: BP 94/58; PULSE 73; RESP 18; TEMP 36.6; O2SAT 98
[2019-12-29 14:02] VITALS: BP 101/55; PULSE 71; RESP 18; O2SAT 97
[2019-12-29 14:27] VITALS: BP 105/55; PULSE 77; RESP 18; O2SAT 97
== END 2019-12-29 14:31 | disposition home or self-care (01) ==
LOC: INF 13:02
PROVIDERS: Visit Provider Nurse Practitioner Acute Care
DX: E88.01 Alpha-1-antitrypsin deficiency (principal); J43.9 Emphysema, unspecified; J43.8 Other emphysema; J96.11 Chronic respiratory failure with hypoxia
CPT/HCPCS: 96365; J0256; J1642

== ENCOUNTER 2020-01-05 14:10 | Outpatient (CLI) | payer MEDICARE, SELFPAY ==
[2020-01-05 14:42] VITALS: BP 142/80; PULSE 67; RESP 18; TEMP 37.1; O2SAT 98
[2020-01-05 15:12] VITALS: BP 140/77; PULSE 69; RESP 18; O2SAT 97
[2020-01-05 15:35] VITALS: BP 119/84; PULSE 65; RESP 18; O2SAT 97
== END 2020-01-05 15:35 | disposition home or self-care (01) ==
LOC: INF 14:19
PROVIDERS: Visit Provider Nurse Practitioner Acute Care
DX: E88.01 Alpha-1-antitrypsin deficiency (principal); J43.9 Emphysema, unspecified; J43.8 Other emphysema; J96.11 Chronic respiratory failure with hypoxia
CPT/HCPCS: 96365; J0256; J1642

== ENCOUNTER 2020-01-13 11:40 | Outpatient (CLI) | payer MEDICARE, SELFPAY ==
[2020-01-13 12:10] VITALS: BP 93/55; PULSE 98; RESP 18; TEMP 36.9; O2SAT 94
[2020-01-13 12:40] VITALS: BP 100/58; PULSE 95; RESP 18; O2SAT 95
[2020-01-13 13:00] VITALS: BP 101/59; PULSE 89; RESP 18; O2SAT 95
== END 2020-01-13 13:07 | disposition home or self-care (01) ==
LOC: INF 11:47
PROVIDERS: Visit Provider Nurse Practitioner Acute Care
DX: E88.01 Alpha-1-antitrypsin deficiency (principal); J43.9 Emphysema, unspecified; J43.8 Other emphysema; J96.11 Chronic respiratory failure with hypoxia
CPT/HCPCS: 96365; J0256; J1642

== ENCOUNTER 2020-01-19 12:20 | Outpatient (CLI) | payer MEDICARE, SELFPAY ==
[2020-01-19 12:51] VITALS: BP 103/49; PULSE 71; RESP 18; TEMP 36.6; O2SAT 98
[2020-01-19 13:21] VITALS: BP 99/52; PULSE 76; RESP 18; O2SAT 97
[2020-01-19 13:45] VITALS: BP 101/59; PULSE 79; RESP 18; O2SAT 97
== END 2020-01-19 13:45 | disposition home or self-care (01) ==
LOC: INF 12:20
PROVIDERS: Visit Provider Nurse Practitioner Acute Care
DX: E88.01 Alpha-1-antitrypsin deficiency (principal); J43.9 Emphysema, unspecified; J96.11 Chronic respiratory failure with hypoxia; J43.8 Other emphysema
CPT/HCPCS: 96365; J0256; J1642

== ENCOUNTER 2020-01-26 12:30 | Outpatient (CLI) | payer MEDICARE, SELFPAY ==
[2020-01-26 13:10] VITALS: BP 88/68; PULSE 81; RESP 20; TEMP 36.7; O2SAT 96
[2020-01-26 14:23] VITALS: BP 122/66; PULSE 83; RESP 20; O2SAT 95
== END 2020-01-26 14:25 | disposition home or self-care (01) ==
LOC: INF 12:40
PROVIDERS: Visit Provider Nurse Practitioner Acute Care
DX: E88.01 Alpha-1-antitrypsin deficiency (principal); J43.8 Other emphysema; J43.9 Emphysema, unspecified; J96.11 Chronic respiratory failure with hypoxia
CPT/HCPCS: 96365; J0256; J1642

== ENCOUNTER 2020-02-03 13:30 | Outpatient (CLI) | payer MEDICARE, SELFPAY ==
[2020-02-03 13:50] VITALS: BP 90/46; PULSE 98; RESP 20; TEMP 37.3; O2SAT 95
[2020-02-03 14:25] VITALS: BP 102/65; PULSE 78; RESP 20
== END 2020-02-03 15:00 | disposition home or self-care (01) ==
LOC: INF 13:34
PROVIDERS: Visit Provider Nurse Practitioner Acute Care
DX: E88.01 Alpha-1-antitrypsin deficiency (principal); J43.8 Other emphysema; J43.9 Emphysema, unspecified; J96.11 Chronic respiratory failure with hypoxia
CPT/HCPCS: 96365; J0256; J1642

== ENCOUNTER 2020-02-12 13:45 | Outpatient (CLI) | payer MEDICARE, SELFPAY ==
[2020-02-12 14:10] VITALS: BP 85/50; PULSE 79; RESP 20; TEMP 36.9; O2SAT 95
[2020-02-12 14:45] VITALS: BP 122/74; PULSE 68; RESP 20; TEMP 36.9; O2SAT 95
== END 2020-02-12 14:45 | disposition home or self-care (01) ==
LOC: INF 14:03
PROVIDERS: Visit Provider Nurse Practitioner Acute Care
DX: E88.01 Alpha-1-antitrypsin deficiency (principal); J43.8 Other emphysema; J43.9 Emphysema, unspecified; J96.11 Chronic respiratory failure with hypoxia
CPT/HCPCS: 96365; J0256; J1642

== ENCOUNTER 2020-02-17 13:10 | Outpatient (CLI) | payer MEDICARE, SELFPAY ==
[2020-02-17 13:38] VITALS: BP 90/52; PULSE 80; RESP 18; TEMP 36.9; O2SAT 97
[2020-02-17 14:08] VITALS: BP 101/58; PULSE 74; RESP 18; O2SAT 97
[2020-02-17 14:30] VITALS: BP 112/52; PULSE 76; RESP 18; O2SAT 96
== END 2020-02-17 14:54 | disposition home or self-care (01) ==
LOC: INF 13:10
PROVIDERS: Visit Provider Nurse Practitioner Acute Care
DX: E88.01 Alpha-1-antitrypsin deficiency (principal); J43.8 Other emphysema; J43.9 Emphysema, unspecified; J96.11 Chronic respiratory failure with hypoxia
CPT/HCPCS: 96365; J0256; J1642

== ENCOUNTER 2020-02-24 13:00 | Outpatient (CLI) | payer MEDICARE, SELFPAY ==
[2020-02-24 13:22] VITALS: BP 97/48; PULSE 92; RESP 20; TEMP 37.1; O2SAT 96
[2020-02-24 13:52] VITALS: BP 99/47; PULSE 91; RESP 20; O2SAT 95
[2020-02-24 14:15] VITALS: BP 94/49; PULSE 91; RESP 20; O2SAT 96
== END 2020-02-24 14:15 | disposition home or self-care (01) ==
LOC: INF 13:02
PROVIDERS: Visit Provider Nurse Practitioner Acute Care
DX: E88.01 Alpha-1-antitrypsin deficiency (principal); J43.8 Other emphysema; J43.9 Emphysema, unspecified; J96.11 Chronic respiratory failure with hypoxia
CPT/HCPCS: 96365; J0256; J1642

== ENCOUNTER 2020-03-01 13:15 | Outpatient (CLI) | payer MEDICARE, SELFPAY ==
[2020-03-01 13:59] VITALS: BP 124/64; PULSE 99; RESP 20; TEMP 37.1; O2SAT 92
[2020-03-01 14:29] VITALS: BP 119/61; PULSE 91; RESP 20; O2SAT 95
[2020-03-01 14:55] VITALS: BP 122/61; PULSE 94; RESP 20; O2SAT 94
== END 2020-03-01 15:10 | disposition home or self-care (01) ==
LOC: INF 13:55
PROVIDERS: Visit Provider Nurse Practitioner Acute Care
DX: E88.01 Alpha-1-antitrypsin deficiency (principal); J43.8 Other emphysema; J43.9 Emphysema, unspecified; J96.11 Chronic respiratory failure with hypoxia
CPT/HCPCS: 96365; J0256; J1642

== ENCOUNTER 2020-03-08 13:00 | Outpatient (CLI) | payer MEDICARE, SELFPAY ==
[2020-03-08 13:00] VITALS: BP 112/74; PULSE 68; RESP 20; TEMP 36.9; O2SAT 95
[2020-03-08 14:10] VITALS: BP 105/62; PULSE 86; RESP 20; TEMP 36.9; O2SAT 95
== END 2020-03-08 14:10 | disposition home or self-care (01) ==
LOC: INF 13:06
PROVIDERS: Visit Provider Nurse Practitioner Acute Care
DX: E88.01 Alpha-1-antitrypsin deficiency (principal); J43.9 Emphysema, unspecified; J43.8 Other emphysema; J96.11 Chronic respiratory failure with hypoxia
CPT/HCPCS: 96365; J0256; J1642

== ENCOUNTER 2020-03-15 12:50 | Outpatient (CLI) | payer MEDICARE, SELFPAY ==
[2020-03-15 13:20] VITALS: BP 84/54; PULSE 75; RESP 20; TEMP 37.1; O2SAT 96
[2020-03-15 14:26] VITALS: BP 90/50; PULSE 81; RESP 20; O2SAT 95
== END 2020-03-15 14:27 | disposition home or self-care (01) ==
LOC: INF 13:29
PROVIDERS: Visit Provider Nurse Practitioner Acute Care
DX: E88.01 Alpha-1-antitrypsin deficiency (principal); J43.9 Emphysema, unspecified; J96.11 Chronic respiratory failure with hypoxia; J43.8 Other emphysema
CPT/HCPCS: 96365; J0256; J1642

== ENCOUNTER 2020-03-23 12:30 | Outpatient (CLI) | payer MEDICARE, SELFPAY ==
[2020-03-23 13:10] VITALS: BP 127/71; PULSE 68; RESP 20; TEMP 36.8; O2SAT 97
[2020-03-23 13:55] VITALS: BP 128/84; PULSE 75; RESP 20
== END 2020-03-23 14:39 | disposition home or self-care (01) ==
LOC: INF 12:35
PROVIDERS: Visit Provider Nurse Practitioner Acute Care
DX: E88.01 Alpha-1-antitrypsin deficiency (principal); J43.9 Emphysema, unspecified; J43.8 Other emphysema; J96.11 Chronic respiratory failure with hypoxia
CPT/HCPCS: 96365; J0256; J1642

== ENCOUNTER 2020-03-29 13:26 | Outpatient (CLI) | payer MEDICARE, SELFPAY ==
[2020-03-29 13:45] VITALS: BP 98/56; PULSE 69; RESP 22; TEMP 37.1; O2SAT 93
[2020-03-29 14:15] VITALS: BP 104/62; PULSE 72; RESP 20; TEMP 37.1; O2SAT 94
[2020-03-29 14:45] VITALS: BP 100/59; PULSE 78; RESP 20; O2SAT 93
[2020-03-29 15:08] VITALS: BP 108/69; PULSE 79; RESP 20; TEMP 37.1; O2SAT 94
== END 2020-03-29 15:15 | disposition home or self-care (01) ==
LOC: INF 13:29
PROVIDERS: Visit Provider Nurse Practitioner Acute Care
DX: E88.01 Alpha-1-antitrypsin deficiency (principal); J43.9 Emphysema, unspecified; J43.8 Other emphysema; J96.11 Chronic respiratory failure with hypoxia
CPT/HCPCS: 96365; J0256; J1642

== ENCOUNTER 2020-04-06 12:50 | Outpatient (CLI) | payer MEDICARE, SELFPAY ==
[2020-04-06 13:40] VITALS: BP 107/43; PULSE 91; RESP 20; TEMP 36.7; O2SAT 91
[2020-04-06 14:20] VITALS: BP 115/74; PULSE 80; RESP 20
== END 2020-04-06 14:40 | disposition home or self-care (01) ==
LOC: INF 12:57
PROVIDERS: Visit Provider Nurse Practitioner Acute Care
DX: E88.01 Alpha-1-antitrypsin deficiency (principal); J43.9 Emphysema, unspecified; J96.11 Chronic respiratory failure with hypoxia
CPT/HCPCS: 96365; J0256; J1642

== ENCOUNTER 2020-04-14 12:52 | Outpatient (CLI) | payer MEDICARE, SELFPAY ==
[2020-04-14 13:20] VITALS: BP 119/70; PULSE 80; RESP 22; TEMP 36.6; O2SAT 93
[2020-04-14 14:00] VITALS: BP 99/64; PULSE 75; RESP 20; TEMP 36.6; O2SAT 93
[2020-04-14 14:40] VITALS: BP 104/69; PULSE 78; RESP 20; TEMP 36.6; O2SAT 93; O2SAT 94
== END 2020-04-14 14:45 | disposition home or self-care (01) ==
LOC: INF 12:52
PROVIDERS: Visit Provider Nurse Practitioner Acute Care
DX: E88.01 Alpha-1-antitrypsin deficiency (principal); J43.9 Emphysema, unspecified; J43.8 Other emphysema; J96.11 Chronic respiratory failure with hypoxia
CPT/HCPCS: 96365; J0256; J1642

== ENCOUNTER 2020-04-19 12:17 | Outpatient (CLI) | payer MEDICARE, SELFPAY ==
[2020-04-19 12:38] VITALS: BP 98/56; PULSE 69; RESP 18; TEMP 36.7; O2SAT 94
[2020-04-19 13:15] VITALS: BP 100/54; PULSE 71; RESP 16; O2SAT 93
[2020-04-19 13:45] VITALS: BP 112/59; PULSE 68; RESP 18; TEMP 36.7; O2SAT 93
== END 2020-04-19 13:45 | disposition home or self-care (01) ==
LOC: INF 12:17
PROVIDERS: Visit Provider Nurse Practitioner Acute Care
DX: E88.01 Alpha-1-antitrypsin deficiency (principal); J43.9 Emphysema, unspecified; J43.8 Other emphysema; J96.11 Chronic respiratory failure with hypoxia
CPT/HCPCS: 96365; J0256; J1642

== ENCOUNTER 2020-04-26 13:46 | Outpatient (CLI) | payer MEDICARE, SELFPAY ==
[2020-04-26 13:51] VITALS: BP 100/69; PULSE 91; RESP 22; TEMP 36.6; O2SAT 94
[2020-04-26 14:21] VITALS: BP 104/67; PULSE 94; RESP 22; O2SAT 95
[2020-04-26 14:53] VITALS: BP 102/62; PULSE 90; RESP 22; O2SAT 94
== END 2020-04-26 14:59 | disposition home or self-care (01) ==
LOC: INF 13:46
PROVIDERS: Visit Provider Nurse Practitioner Acute Care
DX: E88.01 Alpha-1-antitrypsin deficiency (principal); J43.9 Emphysema, unspecified; J43.8 Other emphysema; J96.11 Chronic respiratory failure with hypoxia
CPT/HCPCS: 96365; J0256; J1642

== ENCOUNTER 2020-05-03 11:39 | Outpatient (CLI) | payer MEDICARE, SELFPAY ==
[2020-05-03 12:29] VITALS: BP 112/66; PULSE 68; RESP 18; TEMP 36.7; O2SAT 94
[2020-05-03 12:48] VITALS: BP 102/59; PULSE 70; RESP 20; O2SAT 93
[2020-05-03 13:20] VITALS: BP 110/62; PULSE 66; RESP 20; TEMP 36.6; O2SAT 94
== END 2020-05-03 13:22 | disposition home or self-care (01) ==
LOC: INF 11:39
PROVIDERS: Visit Provider Nurse Practitioner Acute Care
DX: E88.01 Alpha-1-antitrypsin deficiency (principal); J43.9 Emphysema, unspecified; J43.8 Other emphysema; J96.11 Chronic respiratory failure with hypoxia
CPT/HCPCS: 96365; J0256; J1642

== ENCOUNTER 2020-05-10 13:32 | Outpatient (CLI) | payer MEDICARE, SELFPAY ==
[2020-05-10 14:05] VITALS: BP 109/68; PULSE 68; RESP 20; TEMP 36.9; O2SAT 95
[2020-05-10 14:59] VITALS: BP 112/74; PULSE 68; RESP 20; TEMP 36.9; O2SAT 95
== END 2020-05-10 15:22 | disposition home or self-care (01) ==
LOC: INF 13:32
PROVIDERS: Visit Provider Nurse Practitioner Acute Care
DX: E88.01 Alpha-1-antitrypsin deficiency (principal); J43.9 Emphysema, unspecified; J43.8 Other emphysema; J96.11 Chronic respiratory failure with hypoxia
CPT/HCPCS: 96365; J0256; J1642

== ENCOUNTER 2020-05-18 13:17 | Outpatient (CLI) | payer MEDICARE, SELFPAY ==
[2020-05-18 13:44] VITALS: BP 138/60; PULSE 80; RESP 18; TEMP 36.7; O2SAT 98
[2020-05-18 14:15] VITALS: BP 129/65; PULSE 79; RESP 18; O2SAT 97
[2020-05-18 14:40] VITALS: BP 127/72; PULSE 74; RESP 18; O2SAT 97
== END 2020-05-18 14:40 | disposition home or self-care (01) ==
LOC: INF 13:17
PROVIDERS: Visit Provider Nurse Practitioner Acute Care
DX: E88.01 Alpha-1-antitrypsin deficiency (principal); J43.9 Emphysema, unspecified; J43.8 Other emphysema; J96.11 Chronic respiratory failure with hypoxia
CPT/HCPCS: 96365; J0256; J1642

== ENCOUNTER 2020-05-25 14:10 | Outpatient (CLI) | payer MEDICARE, SELFPAY ==
[2020-05-25 14:45] VITALS: BP 114/68; PULSE 86; RESP 20; TEMP 36.7; O2SAT 95
[2020-05-25 15:15] VITALS: BP 114/73; PULSE 89; RESP 18
== END 2020-05-25 16:00 | disposition home or self-care (01) ==
LOC: INF 14:16
PROVIDERS: Visit Provider Nurse Practitioner Acute Care
DX: E88.01 Alpha-1-antitrypsin deficiency (principal); J43.9 Emphysema, unspecified; J43.8 Other emphysema; J96.11 Chronic respiratory failure with hypoxia
CPT/HCPCS: 96365; J0256; J1642

== ENCOUNTER 2020-05-31 12:52 | Outpatient (CLI) | payer MEDICARE, SELFPAY ==
[2020-05-31 13:16] VITALS: BP 134/79; PULSE 94; RESP 22; TEMP 36.7; O2SAT 95
[2020-05-31 13:46] VITALS: BP 128/77; PULSE 88; RESP 20; O2SAT 96
[2020-05-31 14:05] VITALS: BP 120/69; PULSE 89; RESP 20; O2SAT 95
== END 2020-05-31 14:17 | disposition home or self-care (01) ==
LOC: INF 12:52
PROVIDERS: Visit Provider Nurse Practitioner Acute Care
DX: E88.01 Alpha-1-antitrypsin deficiency (principal); J43.9 Emphysema, unspecified; J43.8 Other emphysema; J96.11 Chronic respiratory failure with hypoxia
CPT/HCPCS: 96365; J0256; J1642

== ENCOUNTER 2020-06-08 13:03 | Outpatient (CLI) | payer MEDICARE, SELFPAY ==
[2020-06-08 13:53] VITALS: BP 115/58; PULSE 79; RESP 22; TEMP 37; O2SAT 93
[2020-06-08 15:25] VITALS: BP 109/74; PULSE 82; RESP 18
== END 2020-06-08 15:25 | disposition home or self-care (01) ==
LOC: INF 13:03
PROVIDERS: Visit Provider Nurse Practitioner Acute Care
DX: E88.01 Alpha-1-antitrypsin deficiency (principal); J43.9 Emphysema, unspecified; J43.8 Other emphysema; J96.11 Chronic respiratory failure with hypoxia
CPT/HCPCS: 96365; J0256; J1642

== ENCOUNTER 2020-06-15 13:13 | Outpatient (CLI) | payer MEDICARE, SELFPAY ==
[2020-06-15 13:35] VITALS: BP 145/81; PULSE 94; RESP 20; TEMP 37; O2SAT 94
[2020-06-15 14:05] VITALS: BP 141/82; PULSE 95; RESP 20; O2SAT 93
[2020-06-15 14:40] VITALS: BP 115/64; PULSE 92; RESP 20; O2SAT 94
== END 2020-06-15 14:40 | disposition home or self-care (01) ==
LOC: INF 13:13
PROVIDERS: Visit Provider Nurse Practitioner Acute Care
DX: E88.01 Alpha-1-antitrypsin deficiency (principal); J43.9 Emphysema, unspecified; J43.8 Other emphysema; J96.11 Chronic respiratory failure with hypoxia
CPT/HCPCS: 96365; J0256; J1642

== ENCOUNTER 2020-06-21 13:40 | Outpatient (CLI) | payer MEDICARE, SELFPAY ==
[2020-06-21 14:07] VITALS: BP 134/72; PULSE 85; RESP 22; TEMP 36.7; O2SAT 92
[2020-06-21 14:37] VITALS: BP 128/78; PULSE 88; RESP 22; O2SAT 94
[2020-06-21 14:50] VITALS: BP 120/79; PULSE 86; RESP 20; O2SAT 94
== END 2020-06-21 14:50 | disposition home or self-care (01) ==
LOC: INF 13:40
PROVIDERS: Visit Provider Nurse Practitioner Acute Care
DX: E88.01 Alpha-1-antitrypsin deficiency (principal); J43.9 Emphysema, unspecified; J43.8 Other emphysema; J96.11 Chronic respiratory failure with hypoxia
CPT/HCPCS: 96365; J0256; J1642

== ENCOUNTER 2020-06-28 11:37 | Outpatient (CLI) | payer MEDICARE, SELFPAY ==
[2020-06-28 12:10] VITALS: BP 104/56; PULSE 78; RESP 20; TEMP 36.7; O2SAT 95
[2020-06-28 12:40] VITALS: BP 109/58; PULSE 81; RESP 20; O2SAT 96
[2020-06-28 13:05] VITALS: BP 102/62; PULSE 75; RESP 18; O2SAT 94
[2020-06-28 13:20] VITALS: BP 104/63; PULSE 80; RESP 20; TEMP 36.8; O2SAT 96
== END 2020-06-28 13:25 | disposition home or self-care (01) ==
LOC: INF 11:38
PROVIDERS: Visit Provider Nurse Practitioner Acute Care
DX: E88.01 Alpha-1-antitrypsin deficiency (principal); J43.9 Emphysema, unspecified; J43.8 Other emphysema; J96.11 Chronic respiratory failure with hypoxia
CPT/HCPCS: 96365; J0256; J1642

== ENCOUNTER → 2020-07-05 13:03 | Outpatient (CLI) | payer MEDICARE, SELFPAY ==
[2020-07-05 13:27] VITALS: BP 136/68; PULSE 101; RESP 22; TEMP 36.7; O2SAT 93
[2020-07-05 13:57] VITALS: BP 127/67; PULSE 99; RESP 22; O2SAT 94
[2020-07-05 14:20] VITALS: BP 95/44; PULSE 101; RESP 22; O2SAT 95
== END ==
PROVIDERS: Visit Provider Nurse Practitioner Acute Care
DX: E88.01 Alpha-1-antitrypsin deficiency (principal); J43.9 Emphysema, unspecified; J43.8 Other emphysema; J96.11 Chronic respiratory failure with hypoxia
CPT/HCPCS: 96365; J0256; J1642

== ENCOUNTER 2020-07-12 13:15 | Outpatient (CLI) | payer MEDICARE, SELFPAY ==
[2020-07-12 13:30] VITALS: BP 117/77; PULSE 90; RESP 20; TEMP 36.4; O2SAT 93
[2020-07-12 14:00] VITALS: BP 112/76; PULSE 89; RESP 20; O2SAT 94
[2020-07-12 14:15] VITALS: BP 117/52; PULSE 88; RESP 20; O2SAT 94
== END 2020-07-12 14:15 | disposition home or self-care (01) ==
LOC: INF 13:15
PROVIDERS: Visit Provider Family Medicine
DX: E88.01 Alpha-1-antitrypsin deficiency (principal); J43.9 Emphysema, unspecified; J43.8 Other emphysema; J96.11 Chronic respiratory failure with hypoxia
CPT/HCPCS: 96365; J0256; J1642

== ENCOUNTER 2020-07-20 13:00 | Outpatient (CLI) | payer MEDICARE, SELFPAY ==
[2020-07-20 13:45] VITALS: BP 128/58; PULSE 78; RESP 20; TEMP 36.7; O2SAT 94
[2020-07-20 13:58] VITALS: BMI 18.0
[2020-07-20 14:15] VITALS: BP 125/71; PULSE 72; RESP 18; O2SAT 94
[2020-07-20 14:44] VITALS: BP 122/65; PULSE 76; RESP 18; TEMP 36.7; O2SAT 94
== END 2020-07-20 14:47 | disposition home or self-care (01) ==
LOC: INF 13:12
PROVIDERS: Visit Provider Nurse Practitioner Acute Care
DX: E88.01 Alpha-1-antitrypsin deficiency (principal); J43.9 Emphysema, unspecified; J43.8 Other emphysema; J96.11 Chronic respiratory failure with hypoxia
CPT/HCPCS: 96365; J0256; J1642

== ENCOUNTER 2020-07-26 14:37 | Outpatient (CLI) | payer MEDICARE, SELFPAY ==
[2020-07-26 14:35] VITALS: BP 110/60; PULSE 91; RESP 20; TEMP 36.4; O2SAT 94
[2020-07-26 15:15] VITALS: BP 84/56; PULSE 78; RESP 18; O2SAT 94
[2020-07-26 15:46] VITALS: BP 94/59; PULSE 80; RESP 18; TEMP 36.6; O2SAT 95
== END 2020-07-26 15:54 | disposition home or self-care (01) ==
LOC: INF 14:37
PROVIDERS: Visit Provider Nurse Practitioner Acute Care
DX: E88.01 Alpha-1-antitrypsin deficiency (principal); J43.9 Emphysema, unspecified; J43.8 Other emphysema; J96.11 Chronic respiratory failure with hypoxia
CPT/HCPCS: 96365; J0256; J1642

== ENCOUNTER 2020-08-03 13:40 | Outpatient (CLI) | payer MEDICARE, SELFPAY ==
[2020-08-03 14:03] VITALS: BP 114/78; PULSE 98; RESP 22; TEMP 36.6; O2SAT 92
[2020-08-03 14:33] VITALS: BP 110/74; PULSE 94; RESP 20; O2SAT 93
[2020-08-03 14:55] VITALS: BP 105/64; PULSE 93; RESP 20; O2SAT 92
== END 2020-08-03 15:10 | disposition home or self-care (01) ==
LOC: INF 14:03
PROVIDERS: Visit Provider Nurse Practitioner Acute Care
DX: E88.01 Alpha-1-antitrypsin deficiency (principal); J43.9 Emphysema, unspecified; J43.8 Other emphysema; J96.11 Chronic respiratory failure with hypoxia
CPT/HCPCS: 96365; J0256; J1642

== ENCOUNTER 2020-08-10 14:09 | Outpatient (CLI) | payer MEDICARE, SELFPAY ==
[2020-08-10 14:32] VITALS: BP 105/67; PULSE 93; RESP 22; TEMP 36.5; O2SAT 92
[2020-08-10 15:02] VITALS: BP 109/62; PULSE 98; RESP 22; O2SAT 93
[2020-08-10 15:20] VITALS: BP 101/69; PULSE 95; RESP 22; O2SAT 92
== END 2020-08-10 15:32 | disposition home or self-care (01) ==
LOC: INF 14:09
PROVIDERS: Visit Provider Nurse Practitioner Acute Care
DX: E88.01 Alpha-1-antitrypsin deficiency (principal); J43.9 Emphysema, unspecified; J43.8 Other emphysema; J96.11 Chronic respiratory failure with hypoxia
CPT/HCPCS: 96365; J0256; J1642

== ENCOUNTER 2020-08-16 13:10 | Outpatient (CLI) | payer MEDICARE, SELFPAY ==
[2020-08-16 13:35] VITALS: BP 112/69; PULSE 69; RESP 18; TEMP 36.7; O2SAT 96
[2020-08-16 14:05] VITALS: BP 99/59; PULSE 71; RESP 16; O2SAT 95
[2020-08-16 14:40] VITALS: BP 116/63; PULSE 72; RESP 20; TEMP 36.7; O2SAT 95
== END 2020-08-16 14:00 | disposition home or self-care (01) ==
LOC: INF 13:14
PROVIDERS: Visit Provider Nurse Practitioner Acute Care
DX: E88.01 Alpha-1-antitrypsin deficiency (principal); J43.9 Emphysema, unspecified; J43.8 Other emphysema; J96.11 Chronic respiratory failure with hypoxia
CPT/HCPCS: 96365; J0256; J1642

== ENCOUNTER 2020-08-24 14:00 | Outpatient (CLI) | payer MEDICARE, SELFPAY ==
[2020-08-24 14:45] VITALS: BP 119/65; PULSE 79; RESP 18; TEMP 36.4; O2SAT 92
[2020-08-24 15:15] VITALS: BP 120/61; PULSE 71; RESP 18; O2SAT 92
[2020-08-24 15:47] VITALS: BP 114/62; PULSE 78; RESP 18; O2SAT 93
== END 2020-08-24 15:55 | disposition home or self-care (01) ==
LOC: INF 14:32
PROVIDERS: Visit Provider Nurse Practitioner Acute Care
DX: E88.01 Alpha-1-antitrypsin deficiency (principal); J43.9 Emphysema, unspecified; J43.8 Other emphysema; J96.11 Chronic respiratory failure with hypoxia
CPT/HCPCS: 96365; J0256; J1642

== ENCOUNTER 2020-08-31 14:00 | Outpatient (CLI) | payer MEDICARE, SELFPAY ==
[2020-08-31 14:35] VITALS: BP 131/75; PULSE 80; RESP 22; TEMP 36.3; O2SAT 94
[2020-08-31 15:05] VITALS: BP 144/73; PULSE 76; RESP 20
== END 2020-08-31 15:45 | disposition home or self-care (01) ==
LOC: INF 14:15
PROVIDERS: Visit Provider Nurse Practitioner Acute Care
DX: E88.01 Alpha-1-antitrypsin deficiency (principal); J43.9 Emphysema, unspecified; J43.8 Other emphysema; J96.11 Chronic respiratory failure with hypoxia
CPT/HCPCS: 96365; J0256; J1642

== ENCOUNTER 2020-09-06 13:55 | Outpatient (CLI) | payer MEDICARE, SELFPAY ==
[2020-09-06 14:59] VITALS: BP 117/55; PULSE 72; RESP 18; TEMP 36.6; O2SAT 92
[2020-09-06 15:29] VITALS: BP 111/59; PULSE 78; RESP 18; O2SAT 91
[2020-09-06 15:50] VITALS: BP 108/55; PULSE 71; RESP 18; O2SAT 92
== END 2020-09-06 16:11 | disposition home or self-care (01) ==
LOC: INF 13:55
PROVIDERS: Visit Provider Nurse Practitioner Acute Care
DX: E88.01 Alpha-1-antitrypsin deficiency (principal); J43.9 Emphysema, unspecified; J43.8 Other emphysema; J96.11 Chronic respiratory failure with hypoxia
CPT/HCPCS: 96365; J0256; J1642

== ENCOUNTER 2020-09-13 15:32 | Outpatient (CLI) | payer MEDICARE, SELFPAY ==
[2020-09-13 15:45] VITALS: BP 101/65; PULSE 100; RESP 22; TEMP 36.9; O2SAT 91
[2020-09-13 16:36] VITALS: BP 104/55; PULSE 94; RESP 22
== END 2020-09-13 16:44 | disposition home or self-care (01) ==
LOC: INF 15:32
PROVIDERS: Visit Provider Nurse Practitioner Acute Care
DX: E88.01 Alpha-1-antitrypsin deficiency (principal); J43.9 Emphysema, unspecified; J43.8 Other emphysema; J96.11 Chronic respiratory failure with hypoxia
CPT/HCPCS: 96365; J0256; J1642

== ENCOUNTER 2020-09-20 14:52 | Outpatient (CLI) | payer MEDICARE, SELFPAY ==
[2020-09-20 15:14] VITALS: BP 89/62; PULSE 81; RESP 18; TEMP 36.7; O2SAT 92
[2020-09-20 15:44] VITALS: BP 90/59; PULSE 79; RESP 18; O2SAT 93
[2020-09-20 16:09] VITALS: BP 95/54; PULSE 73; RESP 18; O2SAT 92
== END 2020-09-20 16:11 | disposition home or self-care (01) ==
LOC: INF 14:52
PROVIDERS: Visit Provider Nurse Practitioner Acute Care
DX: E88.01 Alpha-1-antitrypsin deficiency (principal); J43.9 Emphysema, unspecified; J43.8 Other emphysema; J96.11 Chronic respiratory failure with hypoxia
CPT/HCPCS: 96365; J0256; J1642

== ENCOUNTER 2020-09-27 14:02 | Outpatient (CLI) | payer MEDICARE, SELFPAY ==
[2020-09-27 14:17] VITALS: BP 115/63; PULSE 80; RESP 18; TEMP 36.3; O2SAT 99
[2020-09-27 14:47] VITALS: BP 120/68; PULSE 79; RESP 18; O2SAT 99
[2020-09-27 15:20] VITALS: BP 118/67; PULSE 81; RESP 18; O2SAT 98
== END 2020-09-27 15:20 | disposition home or self-care (01) ==
LOC: INF 14:02
PROVIDERS: Visit Provider Nurse Practitioner Acute Care
DX: E88.01 Alpha-1-antitrypsin deficiency (principal); J43.9 Emphysema, unspecified; J43.8 Other emphysema; J96.11 Chronic respiratory failure with hypoxia
CPT/HCPCS: 96365; J0256; J1642

== ENCOUNTER 2020-10-04 13:55 | Outpatient (CLI) | payer MEDICARE, SELFPAY ==
[2020-10-04 14:35] VITALS: BP 117/55; PULSE 68; RESP 20; TEMP 36.9; O2SAT 95
[2020-10-04 15:05] VITALS: BP 116/54; PULSE 84; RESP 20; TEMP 36.9; O2SAT 95
[2020-10-04 15:35] VITALS: BP 118/74; PULSE 72; RESP 20
== END 2020-10-04 15:40 | disposition home or self-care (01) ==
LOC: INF 13:55
PROVIDERS: Visit Provider Nurse Practitioner Acute Care
DX: E88.01 Alpha-1-antitrypsin deficiency (principal); J43.9 Emphysema, unspecified; J43.8 Other emphysema; J96.11 Chronic respiratory failure with hypoxia
CPT/HCPCS: 96365; J0256; J1642

== ENCOUNTER 2020-10-12 15:10 | Outpatient (CLI) | payer MEDICARE, SELFPAY ==
[2020-10-12 15:25] VITALS: BP 124/71; PULSE 84; RESP 22; TEMP 36.3; O2SAT 96
[2020-10-12 15:55] VITALS: BP 119/78; PULSE 88; RESP 20; O2SAT 95
[2020-10-12 16:23] VITALS: BP 102/68; PULSE 90; RESP 20; TEMP 36.3; O2SAT 96
== END 2020-10-12 16:26 | disposition home or self-care (01) ==
LOC: INF 15:31
PROVIDERS: Visit Provider Nurse Practitioner Acute Care
DX: E88.01 Alpha-1-antitrypsin deficiency (principal); J43.9 Emphysema, unspecified; J43.8 Other emphysema; J96.11 Chronic respiratory failure with hypoxia
CPT/HCPCS: 96365; J0256; J1642

== ENCOUNTER 2020-10-18 15:05 | Outpatient (CLI) | payer MEDICARE, SELFPAY ==
[2020-10-18 15:25] VITALS: BP 97/55; PULSE 95; RESP 20; TEMP 36.7; O2SAT 96
[2020-10-18 15:55] VITALS: BP 101/59; PULSE 91; RESP 20; O2SAT 96
[2020-10-18 16:20] VITALS: BP 122/52; PULSE 98; RESP 20; O2SAT 95
== END 2020-10-18 17:33 | disposition home or self-care (01) ==
LOC: INF 15:35
PROVIDERS: Visit Provider Nurse Practitioner Acute Care
DX: E88.01 Alpha-1-antitrypsin deficiency (principal); J43.9 Emphysema, unspecified; J43.8 Other emphysema; J96.11 Chronic respiratory failure with hypoxia
CPT/HCPCS: 96365; J0256; J1642

== ENCOUNTER 2020-10-26 14:25 | Outpatient (CLI) | payer MEDICARE, SELFPAY ==
[2020-10-26 14:40] VITALS: BP 107/67; PULSE 83; RESP 18; TEMP 36.6; O2SAT 95
[2020-10-26 15:10] VITALS: BP 102/69; PULSE 81; RESP 18; O2SAT 96
[2020-10-26 15:45] VITALS: BP 104/57; PULSE 88; RESP 18; O2SAT 95
== END 2020-10-26 16:10 | disposition home or self-care (01) ==
LOC: INF 14:42
PROVIDERS: Visit Provider Nurse Practitioner Acute Care
DX: E88.01 Alpha-1-antitrypsin deficiency (principal); J43.9 Emphysema, unspecified; J43.8 Other emphysema; J96.11 Chronic respiratory failure with hypoxia
CPT/HCPCS: 96365; J0256; J1642

== ENCOUNTER 2020-11-02 14:50 | Outpatient (CLI) | payer MEDICARE, SELFPAY ==
[2020-11-02 15:36] VITALS: BP 105/74; PULSE 87; RESP 20; TEMP 36.3; O2SAT 100
[2020-11-02 16:06] VITALS: BP 110/76; PULSE 84; RESP 20; O2SAT 99
[2020-11-02 16:23] VITALS: BP 99/72; PULSE 81; RESP 20; O2SAT 99
== END 2020-11-02 16:48 | disposition home or self-care (01) ==
LOC: INF 15:00
PROVIDERS: Visit Provider Nurse Practitioner Acute Care
DX: E88.01 Alpha-1-antitrypsin deficiency (principal); J43.9 Emphysema, unspecified; J43.8 Other emphysema; J96.11 Chronic respiratory failure with hypoxia; Z45.2 Encounter for adjustment and management of vascular access device
CPT/HCPCS: 96365; J0256; J1642

== ENCOUNTER 2020-11-09 15:31 | Outpatient (CLI) | payer MEDICARE, SELFPAY ==
[2020-11-09 15:34] VITALS: BP 126/75; PULSE 85; RESP 20; TEMP 36.3; O2SAT 97
[2020-11-09 16:04] VITALS: BP 114/77; PULSE 82; RESP 20; O2SAT 97
[2020-11-09 16:36] VITALS: BP 93/64; PULSE 88; RESP 20; O2SAT 96
== END 2020-11-09 16:39 | disposition home or self-care (01) ==
LOC: INF 15:31
PROVIDERS: Visit Provider Nurse Practitioner Acute Care
DX: E88.01 Alpha-1-antitrypsin deficiency (principal); J43.9 Emphysema, unspecified; J43.8 Other emphysema; J96.11 Chronic respiratory failure with hypoxia
CPT/HCPCS: 96365; J0256; J1642

== ENCOUNTER 2020-11-15 15:10 | Outpatient (CLI) | payer MEDICARE, SELFPAY ==
[2020-11-15 15:25] VITALS: BMI 15.2
[2020-11-15 15:35] VITALS: BP 117/70; PULSE 76; RESP 18; TEMP 36.8; O2SAT 94
[2020-11-15 16:00] VITALS: BP 110/69; PULSE 80; RESP 16; O2SAT 94
[2020-11-15 16:30] VITALS: BP 108/72; PULSE 74; RESP 16; O2SAT 93
[2020-11-15 16:50] VITALS: BP 104/65; PULSE 75; RESP 18; TEMP 36.8; O2SAT 94
== END 2020-11-15 16:55 | disposition home or self-care (01) ==
LOC: INF 15:10
PROVIDERS: Visit Provider Nurse Practitioner Acute Care
DX: E88.01 Alpha-1-antitrypsin deficiency (principal); J43.9 Emphysema, unspecified; J43.8 Other emphysema; J96.11 Chronic respiratory failure with hypoxia
CPT/HCPCS: 96365; J0256; J1642

== ENCOUNTER 2020-11-23 14:00 | Outpatient (CLI) | payer MEDICARE, SELFPAY ==
[2020-11-23 14:40] VITALS: BP 107/64; PULSE 88; RESP 20; TEMP 36.7; O2SAT 99
[2020-11-23 15:20] VITALS: BP 117/70; PULSE 93; RESP 18
== END 2020-11-23 14:50 | disposition home or self-care (01) ==
LOC: INF 14:12
PROVIDERS: Visit Provider Nurse Practitioner Acute Care
DX: E88.01 Alpha-1-antitrypsin deficiency (principal); J43.9 Emphysema, unspecified; J43.8 Other emphysema; J96.11 Chronic respiratory failure with hypoxia
CPT/HCPCS: 96365; J0256; J1642

== ENCOUNTER 2020-11-30 15:30 | Outpatient (CLI) | payer MEDICARE, SELFPAY ==
[2020-11-30 15:20] VITALS: BP 99/55; PULSE 73; RESP 20; TEMP 36.1; O2SAT 94
[2020-11-30 16:53] VITALS: BP 129/75; PULSE 99; RESP 20
== END 2020-11-30 16:57 | disposition home or self-care (01) ==
LOC: INF 16:09
PROVIDERS: Visit Provider Nurse Practitioner Acute Care
DX: E88.01 Alpha-1-antitrypsin deficiency (principal); J43.9 Emphysema, unspecified; J43.8 Other emphysema; J96.11 Chronic respiratory failure with hypoxia
CPT/HCPCS: 96365; J0256; J1642

== ENCOUNTER 2020-12-07 15:15 | Outpatient (CLI) | payer MEDICARE, SELFPAY ==
[2020-12-07 15:35] VITALS: BP 143/82; PULSE 74; RESP 18; TEMP 36.3; O2SAT 97
[2020-12-07 16:05] VITALS: BP 123/72; PULSE 76; RESP 18; O2SAT 97
[2020-12-07 16:40] VITALS: BP 118/76; PULSE 79; RESP 18; O2SAT 96
== END 2020-12-07 16:40 | disposition home or self-care (01) ==
LOC: INF 16:43
PROVIDERS: Visit Provider Nurse Practitioner Acute Care
DX: E88.01 Alpha-1-antitrypsin deficiency (principal); J43.9 Emphysema, unspecified; J43.8 Other emphysema; J96.11 Chronic respiratory failure with hypoxia
CPT/HCPCS: 96365; J0256; J1642

== ENCOUNTER 2020-12-13 16:00 | Outpatient (CLI) | payer MEDICARE, SELFPAY ==
[2020-12-13 16:11] VITALS: BP 98/66; PULSE 101; RESP 20; TEMP 36.7; O2SAT 98
[2020-12-13 16:41] VITALS: BP 101/68; PULSE 99; RESP 20; O2SAT 97
[2020-12-13 17:00] VITALS: BP 111/67; PULSE 95; RESP 20; O2SAT 97
== END 2020-12-13 17:05 | disposition home or self-care (01) ==
LOC: INF 16:00
PROVIDERS: Visit Provider Nurse Practitioner Acute Care
DX: E88.01 Alpha-1-antitrypsin deficiency (principal); J43.9 Emphysema, unspecified; J43.8 Other emphysema; J96.11 Chronic respiratory failure with hypoxia
CPT/HCPCS: 96365; J0256; J1642

== ENCOUNTER 2020-12-20 13:53 | Outpatient (CLI) | payer MEDICARE, SELFPAY ==
[2020-12-20 14:07] VITALS: BP 102/76; PULSE 81; RESP 20; TEMP 36.3; O2SAT 95
[2020-12-20 14:37] VITALS: BP 99/78; PULSE 84; RESP 20; O2SAT 96
[2020-12-20 15:32] VITALS: BP 101/71; PULSE 84; RESP 20; O2SAT 95
== END 2020-12-20 15:36 | disposition home or self-care (01) ==
LOC: INF 13:53
PROVIDERS: Visit Provider Nurse Practitioner Acute Care
DX: E88.01 Alpha-1-antitrypsin deficiency (principal); J43.9 Emphysema, unspecified; J43.8 Other emphysema; J96.11 Chronic respiratory failure with hypoxia
CPT/HCPCS: 96365; J0256; J1642

== ENCOUNTER 2020-12-28 14:35 | Outpatient (CLI) | payer MEDICARE, SELFPAY ==
[2020-12-28 15:10] VITALS: BP 116/73; PULSE 83; RESP 18; TEMP 36.4; O2SAT 97
[2020-12-28 15:40] VITALS: BP 109/78; PULSE 84; RESP 18; O2SAT 97
[2020-12-28 16:05] VITALS: BP 111/71; PULSE 81; RESP 18; O2SAT 96
== END 2020-12-28 16:37 | disposition home or self-care (01) ==
LOC: INF 14:55
PROVIDERS: Visit Provider Nurse Practitioner Acute Care
DX: E88.01 Alpha-1-antitrypsin deficiency (principal); J43.9 Emphysema, unspecified; J43.8 Other emphysema; J96.11 Chronic respiratory failure with hypoxia
CPT/HCPCS: 96365; J0256; J1642

== ENCOUNTER 2021-01-04 15:10 | Outpatient (CLI) | payer MEDICARE, SELFPAY ==
[2021-01-04 15:36] VITALS: BP 112/57; PULSE 85; RESP 20; TEMP 36.7; O2SAT 98
[2021-01-04 16:26] VITALS: BP 103/66; PULSE 86; RESP 18; O2SAT 97
== END 2021-01-04 16:27 | disposition home or self-care (01) ==
LOC: INF 15:17
PROVIDERS: Visit Provider Nurse Practitioner Acute Care
DX: E88.01 Alpha-1-antitrypsin deficiency (principal); J43.9 Emphysema, unspecified; J43.8 Other emphysema; J96.11 Chronic respiratory failure with hypoxia
CPT/HCPCS: 96365; J0256; J1642

== ENCOUNTER 2021-01-12 15:41 | Outpatient (CLI) | payer MEDICARE, SELFPAY ==
[2021-01-12 15:48] VITALS: BP 109/58; PULSE 85; RESP 18; TEMP 36.9; O2SAT 95
[2021-01-12 16:18] VITALS: BP 101/55; PULSE 88; RESP 18; O2SAT 96
[2021-01-12 16:48] VITALS: BP 107/59; PULSE 84; RESP 18; O2SAT 95
== END 2021-01-12 17:23 | disposition home or self-care (01) ==
LOC: INF 15:41
PROVIDERS: Visit Provider Family Medicine
DX: E88.01 Alpha-1-antitrypsin deficiency (principal); J43.9 Emphysema, unspecified; J43.8 Other emphysema; J96.11 Chronic respiratory failure with hypoxia
CPT/HCPCS: 96365; J0256; J1642

== ENCOUNTER 2021-01-17 14:35 | Outpatient (CLI) | payer MEDICARE, SELFPAY ==
[2021-01-17 14:45] VITALS: BP 117/80; PULSE 68; RESP 20; TEMP 36.9; O2SAT 97
[2021-01-17 15:30] VITALS: BP 116/74; PULSE 68; RESP 20
== END 2021-01-17 15:35 | disposition home or self-care (01) ==
LOC: INF 14:36
PROVIDERS: Visit Provider Nurse Practitioner Acute Care
DX: E88.01 Alpha-1-antitrypsin deficiency (principal); J43.9 Emphysema, unspecified; J43.8 Other emphysema; J96.11 Chronic respiratory failure with hypoxia
CPT/HCPCS: 96365; J0256; J1642

== ENCOUNTER 2021-01-24 14:30 | Outpatient (CLI) | payer MEDICARE, SELFPAY ==
[2021-01-24 15:10] VITALS: BP 108/45; PULSE 68; RESP 20; TEMP 36.9; O2SAT 95
[2021-01-24 16:00] VITALS: BP 108/65; PULSE 68; RESP 20; TEMP 36.9; O2SAT 95
== END 2021-01-24 16:00 | disposition home or self-care (01) ==
LOC: INF 14:55
PROVIDERS: Visit Provider Nurse Practitioner Acute Care
DX: E88.01 Alpha-1-antitrypsin deficiency (principal); J43.9 Emphysema, unspecified; J43.8 Other emphysema; J96.11 Chronic respiratory failure with hypoxia
CPT/HCPCS: 96365; J0256; J1642

== ENCOUNTER 2021-01-31 13:10 | Outpatient (CLI) | payer MEDICARE, SELFPAY ==
[2021-01-31 13:15] VITALS: BP 107/61; PULSE 68; RESP 20; TEMP 36.9; O2SAT 95
== END 2021-01-31 14:15 | disposition home or self-care (01) ==
LOC: INF 13:10
PROVIDERS: Visit Provider Nurse Practitioner Acute Care
DX: E88.01 Alpha-1-antitrypsin deficiency (principal); J43.9 Emphysema, unspecified; J43.8 Other emphysema; J96.11 Chronic respiratory failure with hypoxia
CPT/HCPCS: 96365; J0256; J1642

== ENCOUNTER 2021-02-07 13:29 | Outpatient (CLI) | payer MEDICARE, SELFPAY ==
[2021-02-07 13:55] VITALS: BP 91/50; PULSE 74; RESP 22; TEMP 36.7; O2SAT 96
[2021-02-07 14:25] VITALS: BP 94/59; PULSE 78; RESP 20; O2SAT 96
[2021-02-07 14:54] VITALS: BP 111/65; PULSE 74; RESP 20; O2SAT 96
== END 2021-02-07 14:56 | disposition home or self-care (01) ==
LOC: INF 13:29
PROVIDERS: Visit Provider Nurse Practitioner Acute Care
DX: E88.01 Alpha-1-antitrypsin deficiency (principal); J43.9 Emphysema, unspecified; J43.8 Other emphysema; J96.11 Chronic respiratory failure with hypoxia
CPT/HCPCS: 96365; J0256; J1642

== ENCOUNTER 2021-02-15 13:00 | Outpatient (CLI) | payer MEDICARE, SELFPAY ==
[2021-02-15 13:43] VITALS: BP 101/61; PULSE 74; RESP 18; TEMP 36.9; O2SAT 93
[2021-02-15 14:13] VITALS: BP 118/70; PULSE 77; RESP 18
== END 2021-02-15 14:47 | disposition home or self-care (01) ==
LOC: INF 13:04
PROVIDERS: Visit Provider Nurse Practitioner Acute Care
DX: E88.01 Alpha-1-antitrypsin deficiency (principal); J43.9 Emphysema, unspecified; J43.8 Other emphysema; J96.11 Chronic respiratory failure with hypoxia
CPT/HCPCS: 96365; J0256; J1642

== ENCOUNTER 2021-02-22 13:24 | Outpatient (CLI) | payer MEDICARE, SELFPAY ==
[2021-02-22 13:50] VITALS: BP 97/58; PULSE 73; RESP 20; TEMP 36.7; O2SAT 96
[2021-02-22 14:20] VITALS: BP 107/67; PULSE 80; RESP 18; O2SAT 94
== END 2021-02-22 14:55 | disposition home or self-care (01) ==
LOC: INF 13:24
PROVIDERS: Visit Provider Nurse Practitioner Acute Care
DX: E88.01 Alpha-1-antitrypsin deficiency (principal); J43.9 Emphysema, unspecified; J43.8 Other emphysema; J96.11 Chronic respiratory failure with hypoxia
CPT/HCPCS: 96365; J0256; J1642

== ENCOUNTER 2021-03-01 11:55 | Outpatient (CLI) | payer MEDICARE, SELFPAY ==
[2021-03-01 12:20] VITALS: BP 119/67; PULSE 77; RESP 18; TEMP 36.7; O2SAT 95
[2021-03-01 12:50] VITALS: BP 129/67; PULSE 77; RESP 18
== END 2021-03-01 13:15 | disposition home or self-care (01) ==
LOC: INF 11:58
PROVIDERS: Visit Provider Nurse Practitioner Acute Care
DX: E88.01 Alpha-1-antitrypsin deficiency (principal); J43.9 Emphysema, unspecified; J43.8 Other emphysema; J96.11 Chronic respiratory failure with hypoxia
CPT/HCPCS: 96365; J0256; J1642

== ENCOUNTER 2021-03-08 13:15 | Outpatient (CLI) | payer MEDICARE, SELFPAY ==
[2021-03-08 13:29] VITALS: BP 99/59; PULSE 74; RESP 20; TEMP 36.4; O2SAT 96
[2021-03-08 13:59] VITALS: BP 101/55; PULSE 79; RESP 20; O2SAT 97
[2021-03-08 14:35] VITALS: BP 93/59; PULSE 81; RESP 20; O2SAT 97
== END 2021-03-08 14:35 | disposition home or self-care (01) ==
LOC: INF 13:15
PROVIDERS: Visit Provider Nurse Practitioner Acute Care
DX: E88.01 Alpha-1-antitrypsin deficiency (principal); J43.9 Emphysema, unspecified; J43.8 Other emphysema; J96.11 Chronic respiratory failure with hypoxia
CPT/HCPCS: 96365; J0256; J1642

== ENCOUNTER 2021-03-14 12:20 | Outpatient (CLI) | payer MEDICARE, SELFPAY ==
[2021-03-14 12:35] VITALS: BP 105/65; PULSE 77; RESP 18; O2SAT 95
[2021-03-14 13:40] VITALS: BP 94/57; PULSE 83; RESP 18; O2SAT 94
== END 2021-03-14 13:40 | disposition home or self-care (01) ==
LOC: INF 13:46
PROVIDERS: Visit Provider Nurse Practitioner Acute Care
DX: E88.01 Alpha-1-antitrypsin deficiency (principal); J43.9 Emphysema, unspecified; J43.8 Other emphysema; J96.11 Chronic respiratory failure with hypoxia
CPT/HCPCS: 96365; J0256; J1642

== ENCOUNTER 2021-03-21 12:45 | Outpatient (CLI) | payer MEDICARE, SELFPAY ==
[2021-03-21 13:34] VITALS: BP 130/67; PULSE 77; RESP 18; TEMP 36.9; O2SAT 97
[2021-03-21 13:42] VITALS: BMI 16.2
[2021-03-21 14:04] VITALS: BP 125/61; PULSE 79; RESP 18; O2SAT 97
[2021-03-21 14:20] VITALS: BP 117/74; PULSE 81; RESP 18; O2SAT 97
== END 2021-03-21 14:20 | disposition home or self-care (01) ==
LOC: INF 12:46
PROVIDERS: Visit Provider Nurse Practitioner Acute Care
DX: E88.01 Alpha-1-antitrypsin deficiency (principal); J43.9 Emphysema, unspecified; J43.8 Other emphysema; J96.11 Chronic respiratory failure with hypoxia
CPT/HCPCS: 96365; J0256; J1642

== ENCOUNTER 2021-03-30 12:19 | Outpatient (CLI) | payer MEDICARE, SELFPAY ==
[2021-03-30 12:41] VITALS: BP 87/58; PULSE 73; RESP 18; TEMP 36.9; O2SAT 97
[2021-03-30 13:10] VITALS: BP 95/54; PULSE 77; RESP 16; O2SAT 97
[2021-03-30 13:40] VITALS: BP 100/51; PULSE 78; RESP 16; TEMP 36.9; O2SAT 96
== END 2021-03-30 14:00 | disposition home or self-care (01) ==
LOC: INF 12:19
PROVIDERS: Visit Provider Nurse Practitioner Acute Care
DX: E88.01 Alpha-1-antitrypsin deficiency (principal); J43.9 Emphysema, unspecified; J43.8 Other emphysema; J96.11 Chronic respiratory failure with hypoxia
CPT/HCPCS: 96365; J0256; J1642

== ENCOUNTER 2021-04-05 12:31 | Outpatient (CLI) | payer MEDICARE, SELFPAY ==
[2021-04-05 13:05] VITALS: BP 106/53; PULSE 77; RESP 18; TEMP 36.6; O2SAT 97
[2021-04-05 13:54] VITALS: BP 110/59; PULSE 79; RESP 18; O2SAT 97
== END 2021-04-05 14:10 | disposition home or self-care (01) ==
LOC: INF 12:31
PROVIDERS: Visit Provider Nurse Practitioner Acute Care
DX: E88.01 Alpha-1-antitrypsin deficiency (principal); J43.9 Emphysema, unspecified; J43.8 Other emphysema; J96.11 Chronic respiratory failure with hypoxia
CPT/HCPCS: 96365; J0256; J1642

== ENCOUNTER 2021-04-12 13:46 | Outpatient (CLI) | payer MEDICARE, SELFPAY ==
[2021-04-12 13:51] VITALS: BMI 16.9
[2021-04-12 14:28] VITALS: BP 104/65; PULSE 68; RESP 18; TEMP 36.8; O2SAT 97
[2021-04-12 15:00] VITALS: BP 101/69; PULSE 64; RESP 18; O2SAT 97
[2021-04-12 15:20] VITALS: BP 94/54; PULSE 69; RESP 18; O2SAT 98
== END 2021-04-12 15:27 | disposition home or self-care (01) ==
LOC: INF 13:46
PROVIDERS: Visit Provider Nurse Practitioner Acute Care
DX: E88.01 Alpha-1-antitrypsin deficiency (principal); J43.9 Emphysema, unspecified; J43.8 Other emphysema; J96.11 Chronic respiratory failure with hypoxia
CPT/HCPCS: 96365; J0256; J1642

== ENCOUNTER 2021-04-19 12:30 | Outpatient (CLI) | payer MEDICARE, SELFPAY ==
[2021-04-19 13:15] VITALS: BP 102/58; PULSE 82; RESP 18; TEMP 36.8; O2SAT 94
[2021-04-19 13:45] VITALS: BP 99/56; PULSE 88; RESP 18; O2SAT 96
[2021-04-19 14:00] VITALS: BP 95/54; PULSE 84; RESP 18; O2SAT 96
== END 2021-04-19 14:37 | disposition home or self-care (01) ==
LOC: INF 12:32
PROVIDERS: PCP Physician Assistant; Visit Provider Nurse Practitioner Acute Care
DX: E88.01 Alpha-1-antitrypsin deficiency (principal); J43.9 Emphysema, unspecified; J43.8 Other emphysema; J96.11 Chronic respiratory failure with hypoxia
CPT/HCPCS: 96365; J0256; J1642

== ENCOUNTER 2021-04-25 13:11 | Outpatient (CLI) | payer MEDICARE, SELFPAY ==
[2021-04-25 13:40] VITALS: BP 91/67; PULSE 83; RESP 18; O2SAT 98
[2021-04-25 15:05] VITALS: BP 104/40; PULSE 80; RESP 20
== END 2021-04-25 15:05 | disposition home or self-care (01) ==
LOC: INF 13:13
PROVIDERS: PCP Physician Assistant; Visit Provider Nurse Practitioner Acute Care
DX: E88.01 Alpha-1-antitrypsin deficiency (principal); J43.9 Emphysema, unspecified; J43.8 Other emphysema; J96.11 Chronic respiratory failure with hypoxia
CPT/HCPCS: 96365; J0256; J1642

== ENCOUNTER 2021-05-02 12:56 | Outpatient (CLI) | payer MEDICARE, SELFPAY ==
[2021-05-02 13:25] VITALS: BP 112/58; PULSE 73; RESP 18; TEMP 36.3; O2SAT 97
[2021-05-02 13:55] VITALS: BP 105/61; PULSE 78; RESP 18; O2SAT 98
[2021-05-02 14:25] VITALS: BP 108/52; PULSE 75; RESP 18; O2SAT 97
== END 2021-05-02 14:35 | disposition home or self-care (01) ==
LOC: INF 12:58
PROVIDERS: PCP Physician Assistant; Visit Provider Nurse Practitioner Acute Care
DX: E88.01 Alpha-1-antitrypsin deficiency (principal); J43.9 Emphysema, unspecified; J43.8 Other emphysema; J96.11 Chronic respiratory failure with hypoxia
CPT/HCPCS: 96365; J0256; J1642

== ENCOUNTER → 2021-05-18 13:24 | Outpatient (CLI) | payer MEDICARE, SELFPAY ==
[2021-05-18 14:20] VITALS: BP 132/81; PULSE 76; RESP 20; O2SAT 95
[2021-05-18 15:30] VITALS: BP 119/50; PULSE 79; RESP 20
== END ==
PROVIDERS: PCP Physician Assistant; Visit Provider Nurse Practitioner Acute Care
DX: E88.02 Plasminogen deficiency (principal); J43.9 Emphysema, unspecified; J43.8 Other emphysema; J96.11 Chronic respiratory failure with hypoxia
CPT/HCPCS: 96365; J0256; J1642

== ENCOUNTER 2021-05-24 12:47 | Outpatient (CLI) | payer MEDICARE, SELFPAY ==
[2021-05-24 13:30] VITALS: BP 112/56; PULSE 69; RESP 18; O2SAT 96
[2021-05-24 14:00] VITALS: BP 122/63; PULSE 66; RESP 18
== END 2021-05-24 14:15 | disposition home or self-care (01) ==
LOC: INF 12:48
PROVIDERS: Visit Provider Nurse Practitioner Acute Care
DX: E88.01 Alpha-1-antitrypsin deficiency (principal); J43.9 Emphysema, unspecified; J43.8 Other emphysema; J96.11 Chronic respiratory failure with hypoxia
CPT/HCPCS: 96365; J0256; J1642

== ENCOUNTER 2021-05-31 12:28 | Outpatient (CLI) | payer MEDICARE, SELFPAY ==
[2021-05-31 13:00] VITALS: BP 116/60; PULSE 76; RESP 18; TEMP 36.4; O2SAT 95
[2021-05-31 13:30] VITALS: BP 114/69; PULSE 78; RESP 18; O2SAT 95
[2021-05-31 13:55] VITALS: BP 113/65; PULSE 74; RESP 18; O2SAT 94
== END 2021-05-31 14:15 | disposition home or self-care (01) ==
PROVIDERS: PCP Family Medicine; Visit Provider Nurse Practitioner Acute Care
DX: E88.01 Alpha-1-antitrypsin deficiency (principal); J43.9 Emphysema, unspecified; J43.8 Other emphysema; J96.11 Chronic respiratory failure with hypoxia
CPT/HCPCS: 96365; J0256; J1642

== ENCOUNTER 2021-06-06 12:58 | Outpatient (CLI) | payer MEDICARE, SELFPAY ==
[2021-06-06 13:35] VITALS: BP 122/74; PULSE 68; RESP 20; TEMP 36.9; O2SAT 95
[2021-06-06 14:30] VITALS: BP 120/74; PULSE 68; RESP 20; TEMP 36.9; O2SAT 95
== END 2021-06-06 14:45 | disposition home or self-care (01) ==
LOC: INF 13:00
PROVIDERS: PCP Family Medicine; Visit Provider Nurse Practitioner Acute Care
DX: E88.01 Alpha-1-antitrypsin deficiency (principal); J43.9 Emphysema, unspecified; J43.8 Other emphysema; J96.11 Chronic respiratory failure with hypoxia
CPT/HCPCS: 96365; J0256; J1642

== ENCOUNTER 2021-06-14 13:37 | Outpatient (CLI) | payer MEDICARE, SELFPAY ==
[2021-06-14 14:18] VITALS: BP 96/56; PULSE 69; RESP 18; TEMP 36.9; O2SAT 96
[2021-06-14 14:50] VITALS: BP 105/54; PULSE 68; RESP 18
== END 2021-06-14 15:25 | disposition home or self-care (01) ==
LOC: INF 13:39
PROVIDERS: PCP Family Medicine; Visit Provider Nurse Practitioner Acute Care
DX: E88.01 Alpha-1-antitrypsin deficiency (principal); J43.9 Emphysema, unspecified; J43.8 Other emphysema; J96.11 Chronic respiratory failure with hypoxia
CPT/HCPCS: 96365; J0256; J1642

== ENCOUNTER 2021-06-20 13:52 | Outpatient (CLI) | payer MEDICARE, SELFPAY ==
[2021-06-20 14:20] VITALS: BP 128/68; PULSE 70; RESP 20; TEMP 36.7; O2SAT 99
[2021-06-20 15:20] VITALS: BP 133/71; PULSE 69; RESP 19; O2SAT 98
== END 2021-06-20 15:25 | disposition home or self-care (01) ==
LOC: INF 13:53
PROVIDERS: PCP Family Medicine; Visit Provider Nurse Practitioner Acute Care
DX: E88.01 Alpha-1-antitrypsin deficiency (principal); J43.9 Emphysema, unspecified; J43.8 Other emphysema; J96.11 Chronic respiratory failure with hypoxia
CPT/HCPCS: 96365; J0256; J1642

== ENCOUNTER 2021-06-27 13:42 | Outpatient (CLI) | payer MEDICARE, SELFPAY ==
[2021-06-27 14:15] VITALS: BP 105/68; PULSE 68; RESP 17; TEMP 36.4; O2SAT 96
[2021-06-27 14:55] VITALS: BP 105/72; PULSE 74; RESP 17; O2SAT 97
== END 2021-06-27 15:03 | disposition home or self-care (01) ==
LOC: INF 13:43
PROVIDERS: PCP Family Medicine; Visit Provider Nurse Practitioner Acute Care
DX: E88.01 Alpha-1-antitrypsin deficiency (principal); J43.9 Emphysema, unspecified; J43.8 Other emphysema; J96.11 Chronic respiratory failure with hypoxia
CPT/HCPCS: 96365; J0256; J1642

== ENCOUNTER 2021-07-04 13:32 | Outpatient (CLI) | payer MEDICARE, SELFPAY ==
[2021-07-04 14:10] VITALS: BP 129/71; PULSE 76; RESP 20; TEMP 36.2; O2SAT 92
[2021-07-04 15:00] VITALS: BP 110/68; PULSE 71; RESP 20; O2SAT 94
== END 2021-07-04 15:15 | disposition home or self-care (01) ==
LOC: INF 13:33
PROVIDERS: PCP Family Medicine; Visit Provider Nurse Practitioner Acute Care
DX: E88.01 Alpha-1-antitrypsin deficiency (principal); J43.9 Emphysema, unspecified; J43.8 Other emphysema; J96.11 Chronic respiratory failure with hypoxia
CPT/HCPCS: 96365; J0256; J1642

== ENCOUNTER 2021-07-13 12:29 | Outpatient (CLI) | payer MEDICARE, SELFPAY ==
[2021-07-13 13:30] VITALS: BP 145/69; PULSE 81; RESP 17; TEMP 36.6; O2SAT 94
[2021-07-13 14:02] VITALS: BP 121/73; PULSE 76; RESP 17; O2SAT 97
== END 2021-07-13 14:40 | disposition home or self-care (01) ==
LOC: INF 12:31
PROVIDERS: PCP Family Medicine; Visit Provider Nurse Practitioner Acute Care
DX: E88.01 Alpha-1-antitrypsin deficiency (principal); J43.9 Emphysema, unspecified; J43.8 Other emphysema; J96.11 Chronic respiratory failure with hypoxia
CPT/HCPCS: 96365; J0256; J1642

== ENCOUNTER 2021-07-19 12:55 | Outpatient (CLI) | payer MEDICARE, SELFPAY ==
[2021-07-19 13:40] VITALS: BP 137/72; PULSE 67; RESP 18; TEMP 36.6; O2SAT 97
[2021-07-19 14:10] VITALS: BP 129/76; PULSE 72; RESP 18; O2SAT 97
== END 2021-07-19 14:46 | disposition home or self-care (01) ==
LOC: INF 12:57
PROVIDERS: PCP Family Medicine; Visit Provider Nurse Practitioner Acute Care
DX: E88.01 Alpha-1-antitrypsin deficiency (principal); J43.9 Emphysema, unspecified; J43.8 Other emphysema; J96.11 Chronic respiratory failure with hypoxia
CPT/HCPCS: 96365; J0256; J1642

== ENCOUNTER 2021-08-02 15:14 | Outpatient (CLI) | payer MEDICARE, SELFPAY ==
[2021-08-02 15:35] VITALS: BP 115/84; PULSE 85; RESP 18; TEMP 36.7; O2SAT 93
[2021-08-02 16:31] VITALS: BP 121/72; PULSE 81; RESP 18; O2SAT 98
== END 2021-08-02 16:34 | disposition home or self-care (01) ==
LOC: INF 15:16
PROVIDERS: PCP Family Medicine; Visit Provider Nurse Practitioner Acute Care
DX: E88.01 Alpha-1-antitrypsin deficiency (principal); J43.9 Emphysema, unspecified; J43.8 Other emphysema; J96.11 Chronic respiratory failure with hypoxia
CPT/HCPCS: 96365; J0256; J1642

== ENCOUNTER 2021-08-08 15:00 | Outpatient (CLI) | payer MEDICARE, SELFPAY ==
[2021-08-08 15:40] VITALS: BP 130/56; PULSE 81; RESP 18; TEMP 36.6; O2SAT 94
[2021-08-08 16:20] VITALS: BP 102/56; PULSE 81; RESP 18; O2SAT 95
== END 2021-08-08 16:28 | disposition home or self-care (01) ==
PROVIDERS: PCP Emergency Medicine; Visit Provider Nurse Practitioner Acute Care
DX: E88.01 Alpha-1-antitrypsin deficiency (principal); J43.9 Emphysema, unspecified; J43.8 Other emphysema; J96.11 Chronic respiratory failure with hypoxia
CPT/HCPCS: 96365; J0256; J1642

== ENCOUNTER 2021-08-16 15:32 | Outpatient (CLI) | payer MEDICARE, SELFPAY ==
[2021-08-16 16:10] VITALS: BP 100/55; PULSE 61; RESP 22; TEMP 36.8; O2SAT 99
[2021-08-16 16:40] VITALS: BP 111/59; PULSE 66; RESP 20; O2SAT 98
[2021-08-16 17:05] VITALS: BP 117/56; PULSE 74; RESP 20; O2SAT 98
== END 2021-08-16 17:05 | disposition home or self-care (01) ==
LOC: INF 15:33
PROVIDERS: PCP Family Medicine; Visit Provider Nurse Practitioner Acute Care
DX: E88.01 Alpha-1-antitrypsin deficiency (principal); J43.9 Emphysema, unspecified; J43.8 Other emphysema; J96.11 Chronic respiratory failure with hypoxia
CPT/HCPCS: 96365; J0256; J1642

== ENCOUNTER 2021-08-25 11:50 | Outpatient (CLI) | payer MEDICARE, SELFPAY ==
[2021-08-25 12:10] VITALS: BP 119/68; PULSE 80; RESP 18; TEMP 36.4
[2021-08-25 12:40] VITALS: BP 120/73; PULSE 87; RESP 18
== END 2021-08-25 13:35 | disposition home or self-care (01) ==
LOC: INF 11:51
PROVIDERS: PCP Family Medicine; Visit Provider Nurse Practitioner Acute Care
DX: E88.01 Alpha-1-antitrypsin deficiency (principal); J43.9 Emphysema, unspecified; J43.8 Other emphysema; J96.11 Chronic respiratory failure with hypoxia
CPT/HCPCS: 96365; J0256; J1642

== ENCOUNTER 2021-09-06 15:35 | Outpatient (CLI) | payer MEDICARE, SELFPAY ==
[2021-09-06 15:59] VITALS: BP 108/57; PULSE 83; RESP 20; TEMP 36.2; O2SAT 95
[2021-09-06 16:29] VITALS: BP 104/61; PULSE 87; RESP 20; O2SAT 95
== END 2021-09-06 16:56 | disposition home or self-care (01) ==
LOC: INF 15:36
PROVIDERS: PCP Family Medicine; Visit Provider Nurse Practitioner Family
DX: E88.01 Alpha-1-antitrypsin deficiency (principal); J43.9 Emphysema, unspecified; J43.8 Other emphysema; J96.11 Chronic respiratory failure with hypoxia
CPT/HCPCS: 96365; J0256; J1642

== ENCOUNTER 2021-09-13 15:50 | Outpatient (CLI) | payer MEDICARE, SELFPAY ==
[2021-09-13 16:18] VITALS: BP 132/92; PULSE 94; RESP 22; TEMP 36.4; O2SAT 92
[2021-09-13 17:00] VITALS: BP 124/71; PULSE 92; RESP 22; O2SAT 94
== END 2021-09-13 17:05 | disposition home or self-care (01) ==
LOC: INF 15:52
PROVIDERS: Visit Provider Nurse Practitioner Acute Care
DX: E88.01 Alpha-1-antitrypsin deficiency (principal); J43.9 Emphysema, unspecified; J43.8 Other emphysema; J96.11 Chronic respiratory failure with hypoxia
CPT/HCPCS: 96365; J0256; J1642

== ENCOUNTER 2021-09-19 15:36 | Outpatient (CLI) | payer MEDICARE, SELFPAY ==
[2021-09-19 15:51] VITALS: BMI 17.0
[2021-09-19 16:13] VITALS: BP 109/86; PULSE 76; RESP 22; TEMP 36.8; O2SAT 98
[2021-09-19 16:58] VITALS: BP 127/74; PULSE 78; RESP 22; O2SAT 98
== END 2021-09-19 17:05 | disposition home or self-care (01) ==
LOC: INF 15:38
PROVIDERS: Visit Provider Nurse Practitioner Family
DX: E88.01 Alpha-1-antitrypsin deficiency (principal); J43.9 Emphysema, unspecified; J43.8 Other emphysema; J96.11 Chronic respiratory failure with hypoxia
CPT/HCPCS: 96365; J0256; J1642

== ENCOUNTER 2021-09-26 13:56 | Outpatient (CLI) | payer MEDICARE, SELFPAY ==
[2021-09-26 14:30] VITALS: BP 127/86; PULSE 89; RESP 20; O2SAT 94
[2021-09-26 15:40] VITALS: BP 108/68; PULSE 98; RESP 20
== END 2021-09-26 15:40 | disposition home or self-care (01) ==
LOC: INF 13:57
PROVIDERS: Visit Provider Nurse Practitioner Family
DX: E88.01 Alpha-1-antitrypsin deficiency (principal); J43.9 Emphysema, unspecified; J43.8 Other emphysema; J96.11 Chronic respiratory failure with hypoxia
CPT/HCPCS: 96365; J0256; J1642

== ENCOUNTER 2021-10-04 14:49 | Outpatient (CLI) | payer MEDICARE, SELFPAY ==
[2021-10-04 15:25] VITALS: BP 102/67; PULSE 84; RESP 18; TEMP 36.4; O2SAT 97
[2021-10-04 16:05] VITALS: BP 99/62; PULSE 81; RESP 18; O2SAT 97
== END 2021-10-04 16:12 | disposition home or self-care (01) ==
LOC: INF 14:52
PROVIDERS: Visit Provider Nurse Practitioner Family
DX: E88.01 Alpha-1-antitrypsin deficiency (principal); J43.9 Emphysema, unspecified; J43.8 Other emphysema; J96.11 Chronic respiratory failure with hypoxia
CPT/HCPCS: 96365; J0256; J1642

== ENCOUNTER 2021-10-10 14:23 | Outpatient (CLI) | payer MEDICARE, SELFPAY ==
[2021-10-10 14:30] VITALS: BP 145/72; PULSE 94; RESP 20; TEMP 36.6; O2SAT 94
[2021-10-10 15:36] VITALS: BP 117/69; PULSE 75; RESP 20; O2SAT 95
== END 2021-10-10 15:38 | disposition home or self-care (01) ==
LOC: INF 14:26
PROVIDERS: PCP Emergency Medicine; Visit Provider Nurse Practitioner Family
DX: E88.01 Alpha-1-antitrypsin deficiency (principal); J43.9 Emphysema, unspecified; J43.8 Other emphysema; J96.11 Chronic respiratory failure with hypoxia
CPT/HCPCS: 96365; J0256; J1642

== ENCOUNTER 2021-10-20 13:13 | Outpatient (CLI) | payer MEDICARE, SELFPAY ==
[2021-10-20 13:35] VITALS: BP 135/81; PULSE 81; RESP 18; O2SAT 96
[2021-10-20 14:32] VITALS: BP 153/81; PULSE 83; RESP 20
== END 2021-10-20 14:32 | disposition home or self-care (01) ==
LOC: INF 13:14
PROVIDERS: PCP Emergency Medicine; Visit Provider Nurse Practitioner Family
DX: E88.01 Alpha-1-antitrypsin deficiency (principal); J43.9 Emphysema, unspecified; J43.8 Other emphysema; J96.11 Chronic respiratory failure with hypoxia
CPT/HCPCS: 96365; J0256; J1642

== ENCOUNTER 2021-11-03 14:15 | Outpatient (CLI) | payer MEDICARE, SELFPAY ==
[2021-11-03 14:55] VITALS: BP 108/54; PULSE 80; RESP 20
[2021-11-03 15:25] VITALS: BP 86/45; PULSE 79; RESP 20
== END 2021-11-03 15:45 | disposition home or self-care (01) ==
LOC: INF 14:17
PROVIDERS: PCP Emergency Medicine; Visit Provider Nurse Practitioner Family
DX: E88.01 Alpha-1-antitrypsin deficiency (principal); J43.9 Emphysema, unspecified; J43.8 Other emphysema; J96.11 Chronic respiratory failure with hypoxia
CPT/HCPCS: 96365; J0256; J1642

== ENCOUNTER 2021-11-15 13:59 | Outpatient (CLI) | payer MEDICARE, SELFPAY ==
[2021-11-15 14:35] VITALS: BP 119/72; PULSE 91; RESP 20; O2SAT 95
[2021-11-15 15:05] VITALS: BP 114/71; PULSE 90; RESP 18
== END 2021-11-15 15:25 | disposition home or self-care (01) ==
LOC: INF 14:00
PROVIDERS: PCP Family Medicine; Visit Provider Nurse Practitioner Family
DX: E88.01 Alpha-1-antitrypsin deficiency (principal); J43.9 Emphysema, unspecified; J43.8 Other emphysema; J96.11 Chronic respiratory failure with hypoxia; Z45.2 Encounter for adjustment and management of vascular access device
CPT/HCPCS: 96365; J0256; J1642

== ENCOUNTER 2021-11-29 14:42 | Outpatient (CLI) | payer MEDICARE, SELFPAY ==
--- NOTE | 2021-11-29 16:20 | PC.NURSE ---
1445 - PT CAME IN VIA WHEELCHAIR WITH O2 IN PLACE AT HER ROUTINE 3L PER N/C. PT LETHARGIC AND DISORIENTED. HAD DIFFICULTY OPENING EYES AND KEEPING THEM OPEN. KNEW HER NAME BUT NOT HER BIRTHDAY OR WHERE SHE WAS. PT WAS RESTLESS, PICKING AT O2 TUBING AND FIDGETING WITH BLANKET. O2 SAT 87% ON 3L BUT CAME UP TO 94% WHEN TURNED UP TO 4L. PULSE 77, BP 115/47. IT WAS DECIDED DUE TO ALTERED MENTAL STATUS, THAT PT SHOULD GO TO ED FOR FURTHER EVALUATION. REPORT GIVEN TO SHAWNA SEPULVEDA AND EDA BEATTY AND PT TRANSFERRED TO ED. PROLASTIN TAKEN TO ED FOR THEM TO ADMINISTER THERE.
== END 2021-11-29 15:15 | disposition still patient (30) ==
PROVIDERS: PCP Emergency Medicine; Visit Provider Emergency Medicine
DX: E88.01 Alpha-1-antitrypsin deficiency (principal); J43.9 Emphysema, unspecified; J43.8 Other emphysema; J96.11 Chronic respiratory failure with hypoxia

== ENCOUNTER 2021-11-29 15:22 | Observation (INO) | payer MEDICARE, SELFPAY ==
[2021-11-29 15:22] VITALS: BP 151/92; PULSE 79; RESP 16; TEMP 36.6; O2SAT 94; BMI 14.5; BMI 14.7
--- NOTE | 2021-11-29 15:25 | ECG_ITS ---
APPROVED REPORT Exam: Resting ECG HR:72 bpm ECG Measurements Heart Rate 72 AXES AK 125 P 66 QRSd 73 QRS 79 QT 382 T 80 QTc 407 Conclusion SINUS RHYTHM NORMAL ECG UNCONFIRMED REPORT Electronically signed by : Jere Molina MD 12/01/2021 14:52:55
[2021-11-29 15:37] LABS: POC Glucose,Bedside 74 (70-110)
[2021-11-29 15:44] LABS: Microscopic, Urine URINE MICROSCOPIC (MICROSCOPIC)
[2021-11-29 15:47] LABS: Appearance,Urine CLEAR (Clear); Bilirubin,Urine Negative (Negative); Blood, Urine Negative (Negative); Color,Urine YELLOW (Yellow); Glucose,Urine (UA) Negative (Negative); Ketones,Urine Negative (Negative); Leukocyte Esterase,Urine Negative (Negative); Nitrate,Urine Negative (Negative); PH,Urine 7.5 (5.0-8.5); Protein,Urine Negative (Negative); Specific Gravity, Urine 1.015 (1.005-1.030); Urobilinogen,Urine 0.2 EU/dl (0.2)
[2021-11-29 16:02] LABS: Basophils # 0.1 K/mm3 (0-0.2); Basophils % 0.8 % (0.1-2.0); Eosinophils # 0.1 K/mm3 (0.0-0.4); Eosinophils % 0.7 % (0.1-12.0); Hematocrit 37.8 % (37.0-47.0); Hemoglobin 11.7 g/dL (12.2-16.2); Mean Corpuscular HGB Conc 31.1 g/dL (31.8-35.4); Mean Corpuscular Volume 83.7 fl (81-99); Mean Platelet Volume 7.9 fl (7.4-10.4); Monocytes # 0.6 K/mm3 (0.1-1.0); Monocytes % 4.1 % (1.7-9.3); Neutrophils # 12.8 K/mm3 (1.8-7.8); Neutrophils % 87.4 % (37.0-80.0); Platelet Count 370 K/mm3 (142-424); Red Blood Count 4.52 M/mm3 (4.20-5.40); Red Cell Distribution Width 18.3 % (11.5-17.5); White Blood Count 14.7 K/mm3 (4.8-10.8)
[2021-11-29 16:06] LABS: Chloride 96 mmol/L (98-107); Potassium 3.7 mmoL/L (3.5-5.1); Sodium 133 mmol/L (136-145)
[2021-11-29 16:08] LABS: MANUAL DIFFERENTIAL MANUAL DIFFERENTIAL (MANUAL DIFF)
[2021-11-29 16:09] LABS: Alanine Aminotransferase 35 U/L (12-78); Albumin Level 3.8 g/dl (3.5-5.0); Alkaline Phosphatase 152 U/L (38-126); Anion Gap 9.7 mEq/L (5-15); Aspartate Amino Transferase 55 U/L (14-36); Bilirubin,Total 1.3 mg/dl (0.2-1.3); Blood Urea Nitrogen 12 mg/dl (7-17); Calcium 8.7 mg/dl (8.4-10.2); Carbon Dioxide 31 mmol/L (22.0-30.0); Creatinine Clearance Estimated 33 mL/min (50-200); Estimated Glomerular Filt Rate 84 ml/min (>60); GFR (African American) 102 ML/MIN (>60); Globulin 3.8 g/dL (1.3-3.2); Glucose 71 mg/dl (74-100); Total Protein,Serum 7.6 g/dl (6.3-8.2)
[2021-11-29 16:10] LABS: Lactic Acid 0.6 mmol/L (0.7-2.1)
[2021-11-29 16:12] LABS: WBC,Urine Occasional #/hpf (0-3)
[2021-11-29 16:13] LABS: Bacteria,Urine Trace /lpf
[2021-11-29 16:28] LABS: Troponin I < 0.01 ng/ml (0.00-0.034)
[2021-11-29 16:30] VITALS: BP 119/90; PULSE 75; O2SAT 97
[2021-11-29 16:58] LABS: Anisocytosis 1+; Lymphocytes % 11 % (10-50); Microcytosis 1+; Monocytes % 17 % (2-9); Neutrophils % 72 % (42-76); Platelet Estimate Normal; Total Cells Counted 100
[2021-11-29 16:59] LABS: Hypochromasia 2+
[2021-11-29 17:00] LABS: Coronavirus 19, PCR Not Detected (NotDetected); Influenza A, PCR Not Detected (NotDetected); Influenza B, PCR Not Detected (NotDetected)
[2021-11-29 17:16] LABS: Amphetamine/Metha Screen,Urine Negative ng/ml (<1000)
--- NOTE | 2021-11-29 17:16 | HMH.EDGENADL ---
ED Disposition Clinical Impression: AMS (altered mental status) Disposition: Admitted as Observation Condition on Discharge: Good - Critical Care Critical Care Time: No Attestation: On 11/29/21, the high probability of a clinically significant, sudden or life threatening deterioration of the following system(s) required my full and direct attention, intervention and personal management. The time I documented below is in addition to time spent performing reported procedures but includes the following listed in this critical care notation. Medical Decision Making - Medical Records Medical records reviewed: Yes: I reviewed the patient's medical records. - Andres Inquiry Pt receiving controlled substance: No Vital Signs: 11/29/21 15:22 11/29/21 16:30 11/29/21 17:30 Temperature 97.9 F Temperature Source Oral Pulse Rate 75 80 Pulse Rate [Radial] 79 Respiratory Rate 16 Blood Pressure 119/90 131/86 Blood Pressure [Right Arm] 151/92 H Blood Pressure Mean [Right Arm] 111 Blood Pressure Source [Right Arm] Blood Pressure Position Sitting Blood Pressure Position [Right Arm] Sitting 02 Sat by Pulse Oximetry 94 L 97 96 Oxygen Delivery Method Nasal Cannula Nasal Cannula Oxygen Flow Rate (LPM) 3 3 11/29/21 19:00 11/29/21 19:08 Temperature 98 F Temperature Source Oral Pulse Rate 78 Pulse Rate [Radial] 90 Respiratory Rate 16 20 Blood Pressure 145/74 H Blood Pressure [Right Arm] 142/64 H Blood Pressure Mean [Right Arm] 90 Blood Pressure Source [Right Arm] Automatic Cuff Blood Pressure Position Sitting Blood Pressure Position [Right Arm] Supine 02 Sat by Pulse Oximetry 92 L Oxygen Delivery Method Nasal Cannula Nasal Cannula Oxygen Flow Rate (LPM) 3 3 - Lab Data Lab results reviewed: Yes: I reviewed the patient's lab results. Lab Results 11/29/21 15:30: POC Glucose 74 11/29/21 15:35: WBC 14.7 H, RBC 4.52, Hgb 11.7 L, Hct 37.8, MCV 83.7, MCH 26.0 L, MCHC 31.1 L, RDW 18.3 H, Plt Count 370, MPV 7.9, Neut % (Auto) 87.4 H, Lymph % (Auto) 7.0 L, [place] % (Auto) 4.1, Eos % (Auto) 0.7, Baso % (Auto) 0.8, Neut # (Auto) 12.8 H, Lymph # (Auto) 1.0, [place] # (Auto) 0.6, Eos # (Auto) 0.1, Baso # (Auto) 0.1, Total Counted 100, Neutrophils % (Manual) 72, Lymphocytes % (Manual) 11, Monocytes % (Manual) 17 H, Platelet Estimate Normal, Hypochromasia 2+, Anisocytosis 1+, Microcytosis 1+ 11/29/21 15:35: Sodium 133 L, Potassium 3.7, Chloride 96 L, Carbon Dioxide 31 H, Anion Gap 9.7, BUN 12, Creatinine 0.70, Estimated Creat Clear 33, Estimated GFR 84, Est GFR ( Amer) 102, Glucose 71 L, Calcium 8.7, Total Bilirubin 1.3, AST 55 H, ALT 35, Alkaline Phosphatase 152 H, Troponin I < 0.01, Total Protein 7.6, Albumin 3.8, Globulin 3.8 H, Albumin/Globulin Ratio 1.0 L 11/29/21 15:35: Lactate 0.6 L 11/29/21 15:40: Urine Color Yellow, Urine Appearance Clear, Urine pH 7.5, Ur Specific [place] 1.015, Urine Protein Negative, Urine Glucose (UA) Negative, Urine Ketones Negative, Urine Blood Negative, Urine Nitrate Negative, Urine Bilirubin Negative, Urine Urobilinogen 0.2, Ur Leukocyte Esterase Negative, Urine RBC None, Urine WBC Occasional, Ur Squamous Epith Cells None, Urine Bacteria Trace 11/29/21 16:38: SARS-CoV-2 (PCR) Not detected, Influenza A Untype (PCR) Not detected, Influenza Type B (PCR) Not detected 11/29/21 16:40: Urine Opiates Screen Negative, Urine Methadone Screen Negative, Ur Barbituates Screen Negative, Ur Phencyclidine Scrn Negative, Ur Amphetamines Screen Negative, U Benzodiazepines Scrn Negative, Urine Cocaine Screen Negative, U Marijuana (THC) Screen Negative 11/29/21 17:20: VBG pH 7.37, VBG pCO2 49.4, VBG pO2 35.6, VBG HCO3 27.7, VBG Total CO2 29.2 H, VBG O2 Saturation 62.3, VBG Base Excess 2.3 11/29/21 17:25: Ammonia < 9 L Result diagrams: 11/29/21 15:35 11/29/21 15:35 Orders (Tests/Meds): ED MEDICATIONS Generic Name Dose Route Start Last Admin Trade Name Freq PRN Reason Stop Dose Admin Acetami
[2021-11-29 17:17] LABS: Barbiturates Screen,Urine Negative ng/ml (<200); Benzodiazepines Screen,Urine Negative ng/ml (<200)
[2021-11-29 17:18] LABS: Cannabinoid Screen,Urine Negative ng/ml (<50); Cocaine Screen,Urine Negative ng/ml (<300)
[2021-11-29 17:19] LABS: Methadone Screen,Urine Negative ng/ml (<300)
[2021-11-29 17:20] LABS: Opiate Screen,Urine Negative ng/ml (<300); Phencyclidine Screen,Urine Negative ng/ml (<25)
[2021-11-29 17:27] LABS: VBG Base Excess 2.3 mmol/L (-2.4-2.3); VBG HCO3 27.7 mmol/L (23-30); VBG Oxygen Saturation 62.3 % (50-70); VBG PCO2 49.4 mmol/L (35-51); VBG PH 7.37 mmol/L (7.31-7.41); VBG PO2 35.6 mmol/L (28-40); VBG Total CO2 29.2 mmol/L (23-27)
--- NOTE | 2021-11-29 17:27 | CT_ITS ---
PROCEDURE INFORMATION: Exam: CT Head Without Contrast Exam date and time: 11/29/2021 5:35 PM Age: 66 years old Clinical indication: Altered mental status/memory loss; Patient HX: AMS; Additional info: Encephlopathic TECHNIQUE: Imaging protocol: Computed tomography of the head without contrast. Radiation optimization: All CT scans at this facility use at least one of these dose optimization techniques: automated exposure control; mA and/or kV adjustment per patient size (includes targeted exams where dose is matched to clinical indication); or iterative reconstruction. COMPARISON: No relevant prior studies available. FINDINGS: Brain: There is age-appropriate cerebral atrophy. Moderate changes of chronic small vessel ischemia within the cerebral white matter regions bilaterally. No acute infarct or hemorrhage. Cerebral ventricles: No ventriculomegaly. Paranasal sinuses: Visualized sinuses are unremarkable. No fluid levels. Mastoid air cells: Visualized mastoid air cells are well aerated. Bones/joints: Unremarkable. No acute fracture. Soft tissues: Unremarkable. IMPRESSION: No acute intracranial abnormality.
[2021-11-29 17:30] VITALS: BP 131/86; PULSE 80; O2SAT 96
[2021-11-29 17:48] LABS: Ammonia < 9 umol/L (9-30)
--- NOTE | 2021-11-29 18:21 | PC.NURSE ---
report called to floor
--- NOTE | 2021-11-29 18:21 | PC.NURSE ---
Got report from tran bertrand RN
--- NOTE | 2021-11-29 18:57 | PC.NURSE ---
Pt came to the floor
[2021-11-29 19:00] VITALS: BP 142/64; PULSE 90; RESP 16; O2SAT 92; BMI 14.1
[2021-11-29 19:08] VITALS: BP 145/74; PULSE 78; RESP 20; TEMP 36.6; O2SAT 98
[2021-11-29 20:58] VITALS: BP 125/95; PULSE 75; RESP 16; TEMP 36.6; O2SAT 86
--- NOTE | 2021-11-29 21:15 | XR_ITS ---
PROCEDURE INFORMATION: Exam: XR Chest Exam date and time: 11/29/2021 9:38 PM Age: 66 years old Clinical indication: Other: AMS and prior pneumonia; Additional info: Prior pneumonia and AMS per md jerod greene. TECHNIQUE: Imaging protocol: XR of the chest. Views: 1 view. COMPARISON: CR CXR1 CHEST-PORTABLE 12/04/2016 3:21 PM FINDINGS: Tubes, catheters and devices: Central venous port catheter is unchanged in position. Lungs: Ill-defined infiltrates are seen in the mid right lung and to lesser degree in the left mid lung. Lung hyperinflation. Pleural spaces: Small bilateral pleural effusions. Heart/Mediastinum: Unremarkable. No cardiomegaly. Bones/joints: Unremarkable. IMPRESSION: 1. Bilateral infiltrates may represent pneumonia. 2. Small bilateral pleural effusions.
[2021-11-30 04:00] VITALS: BP 111/66; PULSE 67; RESP 16; TEMP 36.5; O2SAT 82
[2021-11-30 05:00] VITALS: BMI 13.7
[2021-11-30 08:00] VITALS: BP 135/68; PULSE 71; RESP 20; TEMP 36.8; O2SAT 92; O2SAT 94
[2021-11-30 08:10] LABS: Basophils # 0.1 K/mm3 (0-0.2); Basophils % 0.9 % (0.1-2.0); Eosinophils # 0.2 K/mm3 (0.0-0.4); Eosinophils % 1.3 % (0.1-12.0); Hematocrit 30.9 % (37.0-47.0); Lymphocytes % 8.7 % (10-50); Mean Corpuscular HGB Conc 32.4 g/dL (31.8-35.4); Mean Corpuscular Hemoglobin 27.4 pg (27.0-31.2); Mean Corpuscular Volume 84.5 fl (81-99); Mean Platelet Volume 8.2 fl (7.4-10.4); Monocytes # 0.7 K/mm3 (0.1-1.0); Monocytes % 5.6 % (1.7-9.3); Neutrophils # 9.7 K/mm3 (1.8-7.8); Neutrophils % 83.5 % (37.0-80.0); Platelet Count 330 K/mm3 (142-424); Red Blood Count 3.66 M/mm3 (4.20-5.40); Red Cell Distribution Width 18.4 % (11.5-17.5); White Blood Count 11.7 K/mm3 (4.8-10.8)
--- NOTE | 2021-11-30 08:17 | HMH.PHACONS ---
- Pharmacy Consult Date: 11/30/21 Time: 08:17 Referring provider: DR. JIANG Reason for Consult:: VANCOMYCIN DOSING Allergies and ADEs:: Allergies Allergy/AdvReac Type Severity Reaction Status Date / Time cefotaxime Allergy Unknown SWELLING Verified 03/30/21 15:17 clarithromycin Allergy Unknown SWELLING Verified 03/30/21 15:17 gatifloxacin Allergy Unknown SWELLING Verified 03/30/21 15:17 hydrocodone Allergy Unknown SWELLING Verified 03/30/21 15:17 sulfamethizole Allergy Unknown SWELLING Verified 03/30/21 15:17 Home Medications:: Home Medications Medication Instructions Recorded Confirmed Type Albuterol Sulfate [Proair Hfa 2 puffs IH Q4HP PRN 08/30/17 11/29/21 History 90mcg/puff Inh] Aspirin [Aspirin 81mg EC Tab] 81 mg PO DAILY 08/30/17 11/29/21 History Benzonatate [Benzonatate 100mg 100 mg PO TIDP PRN 08/30/17 11/29/21 History cap] Cholecalciferol (Vitamin D3) 50,000 unit PO MONTHLY 08/30/17 11/29/21 History [Vitamin D3 50,000 unit Cap] Fluticasone/Salmeterol 1 puff INHALATION BID 08/30/17 11/29/21 History [Fluticasone/Salmeterol 250/50mcg diskus] Levothyroxine Sodium 75 mcg PO DAILY 08/30/17 11/29/21 History [Levothyroxine 75mcg (0.075mg) Tab] Losartan Potassium 50 mg PO DAILY 08/30/17 11/29/21 History Medical Supply, Miscellaneous 1 each IH CONT 08/30/17 11/29/21 History [Oxygen Concentrator] Montelukast Sodium [Singulair 10mg 10 mg PO PM 08/30/17 11/29/21 History tablet] Multivitamin [Multivitamins] 1 each PO DAILY 08/30/17 11/29/21 History Omeprazole [Omeprazole 40mg 40 mg PO DAILY 08/30/17 11/29/21 History Capsule] Potassium Chloride [Klor-Con 10mEq 20 meq PO BID 08/30/17 11/29/21 History tab] Sertraline HCl [Zoloft] 150 mg PO DAILY 08/30/17 11/29/21 History hydroCHLOROthiazide [HCTZ 25mg 25 mg PO DAILY 08/30/17 11/29/21 History tab] Alendronate Sodium [Fosamax 70mg 70 mg PO WEEKLY 05/19/19 11/29/21 History Tablet] Lactobacillus Combination No.4 1 each PO DAILY 09/23/19 11/29/21 History [Probiotic] Tiotropium Ariel [Spiriva 2 puff IH DAILY 09/23/19 11/29/21 History 18mcg/puff inhaler] Ibuprofen [Ibuprofen 200MG Capsule] 400 mg PO NEEDED PRN 09/20/20 11/29/21 History Height: 1.6 m Weight: 35.199 kg Laboratory Results:: Laboratory Results - last 24 hr 11/29/21 15:30: POC Glucose 74 11/29/21 15:35: WBC 14.7 H, RBC 4.52, Hgb 11.7 L, Hct 37.8, MCV 83.7, MCH 26.0 L, MCHC 31.1 L, RDW 18.3 H, Plt Count 370, MPV 7.9, Neut % (Auto) 87.4 H, Lymph % (Auto) 7.0 L, [place] % (Auto) 4.1, Eos % (Auto) 0.7, Baso % (Auto) 0.8, Neut # (Auto) 12.8 H, Lymph # (Auto) 1.0, [place] # (Auto) 0.6, Eos # (Auto) 0.1, Baso # (Auto) 0.1, Total Counted 100, Neutrophils % (Manual) 72, Lymphocytes % (Manual) 11, Monocytes % (Manual) 17 H, Platelet Estimate Normal, Hypochromasia 2+, Anisocytosis 1+, Microcytosis 1+ 11/29/21 15:35: Sodium 133 L, Potassium 3.7, Chloride 96 L, Carbon Dioxide 31 H, Anion Gap 9.7, BUN 12, Creatinine 0.70, Estimated Creat Clear 33, Estimated GFR 84, Est GFR ( Amer) 102, Glucose 71 L, Calcium 8.7, Total Bilirubin 1.3, AST 55 H, ALT 35, Alkaline Phosphatase 152 H, Troponin I < 0.01, Total Protein 7.6, Albumin 3.8, Globulin 3.8 H, Albumin/Globulin Ratio 1.0 L 11/29/21 15:35: Lactate 0.6 L 11/29/21 15:40: Urine Color Yellow, Urine Appearance Clear, Urine pH 7.5, Ur Specific [place] 1.015, Urine Protein Negative, Urine Glucose (UA) Negative, Urine Ketones Negative, Urine Blood Negative, Urine Nitrate Negative, Urine Bilirubin Negative, Urine Urobilinogen 0.2, Ur Leukocyte Esterase Negative, Urine RBC None, Urine WBC Occasional, Ur Squamous Epith Cells None, Urine Bacteria Trace 11/29/21 16:38: SARS-CoV-2 (PCR) Not detected, Influenza A Untype (PCR) Not detected, Influenza Type B (PCR) Not detected 11/29/21 16:40: Urine Opiates Screen Negative, Urine Methadone Screen Negative, Ur Barbituates Screen Negative, Ur Phencyclidine Scrn Negative, Ur Amphetamines S
[2021-11-30 08:18] LABS: Chloride 101 mmol/L (98-107); Sodium 134 mmol/L (136-145)
--- NOTE | 2021-11-30 08:18 | P.CONPHA_ITS ---
[facility] Pharmacy VTE Monitoring - Patient Demographics Admission date: 11/29/21 Report Date: 11/30/21 Time: 08:18 Allergies/Adverse Reactions: Patient Allergies cefotaxime Allergy (Unknown, Verified 03/30/21 15:17) SWELLING clarithromycin Allergy (Unknown, Verified 03/30/21 15:17) SWELLING gatifloxacin Allergy (Unknown, Verified 03/30/21 15:17) SWELLING hydrocodone Allergy (Unknown, Verified 03/30/21 15:17) SWELLING sulfamethizole Allergy (Unknown, Verified 03/30/21 15:17) SWELLING Height: 1.6 m Weight: 35.199 kg Patient Problems: Current Active Problems AMS (altered mental status) (Acute) - VTE Risk Labs: VTE Related Lab Results Hgb 11.7 g/dL (12.2-16.2) L 11/29/21 15:35 Hct 37.8 % (37.0-47.0) 11/29/21 15:35 Plt Count 370 K/mm3 (142-424) 11/29/21 15:35 BUN 12 mg/dl (7-17) 11/29/21 15:35 Creatinine 0.70 mg/dl (0.52-1.04) 11/29/21 15:35 Estimated Creat Clear 33 mL/min (50-200) 11/29/21 15:35 VTE Score: 3 VTE Risk Level: Low Risk - Prophylaxis VTE Prophylaxis Ordered?: Yes Types of VTE Prophylaxis: TEDS Knee High Location of Applied Device: Bilateral Lower Extremeties
[2021-11-30 08:19] LABS: Potassium 3.6 mmoL/L (3.5-5.1)
[2021-11-30 08:21] LABS: Alanine Aminotransferase 26 U/L (12-78); Albumin/Globulin Ratio 0.9 (1.1-1.8); Alkaline Phosphatase 113 U/L (38-126); Anion Gap 6.6 mEq/L (5-15); Aspartate Amino Transferase 42 U/L (14-36); Bilirubin,Total 0.9 mg/dl (0.2-1.3); Blood Urea Nitrogen 16 mg/dl (7-17); Calcium 7.8 mg/dl (8.4-10.2); Carbon Dioxide 30 mmol/L (22.0-30.0); Creatinine Clearance Estimated 31 mL/min (50-200); Estimated Glomerular Filt Rate 84 ml/min (>60); GFR (African American) 102 ML/MIN (>60); Globulin 3.2 g/dL (1.3-3.2); Glucose 84 mg/dl (74-100); Total Protein,Serum 6.2 g/dl (6.3-8.2)
[2021-11-30 08:33] LABS: Hemoglobin 10.1 g/dL (12.2-16.2)
--- NOTE | 2021-11-30 10:07 | CARE MANAGER ---
Current Medications Acetaminophen (Acetaminophen 325mg Tab) 650 mg PO Q4HP PRN PRN Reason: Fever or Mild Pain Stop: 12/29/21 20:01 Piperacillin Sod/Tazobactam (Sod 3.375 gm/ Sodium Chloride) 50 mls @ 100 mls/hr IV Q6H ELENITA Stop: 12/14/21 01:59 Last Admin: 11/30/21 09:32 Dose: 100 mls/hr Documented by: Vancomycin HCl 500 mg/ Sodium (Chloride) 250 mls @ 125 mls/hr IV Q24H ELENITA Stop: 12/14/21 20:59 Ibuprofen (Ibuprofen 400 Mg Tablet) 400 mg PO Q6HP PRN PRN Reason: Mild Pain Stop: 12/29/21 20:01 Sodium Chloride (Sodium Chloride 0.9% 10ml Flush Syringe) 10 ml IV NEEDED PRN PRN Reason: Maintain IV Site Stop: 12/30/21 08:18
--- NOTE | 2021-11-30 10:13 | HMH.PHAINT ---
Home medication list verified using [employer] claim history and patient's home pharmacy.
--- NOTE | 2021-11-30 11:06 | HMH.ACPN2 ---
Internal Medicine - PN: Subj *Date: 11/30/21 *Time: 11:06 Interval history: 66 y.o. WF admitted via ER last evening with change in mental status. Patient with alpha 1 anti-trypsin deficiency and chronic lung disease. Recently treated for pneumonia at [facility]. PCP is Dr. Navarro, and she has allergy specialist. Last night her level of \cognition seemed to vary from minute to minute. She was picking at the air. Overnight she seems to have stabilized and is alert and oriented. She complained that had trouble using her left hand, but this seems to have resolved as well. Her WBC was elevated and antibiotics were started in ER. Exam Vital signs and Labs for Last 24 Hours: Temp Pulse Resp BP Pulse Ox 98.3 F 71 20 135/68 92 L 11/30/21 08:00 11/30/21 08:00 11/30/21 08:00 11/30/21 08:00 11/30/21 08:00 Laboratory Results - last 24 hr 11/29/21 15:30: POC Glucose 74 11/29/21 15:35: WBC 14.7 H, RBC 4.52, Hgb 11.7 L, Hct 37.8, MCV 83.7, MCH 26.0 L, MCHC 31.1 L, RDW 18.3 H, Plt Count 370, MPV 7.9, Neut % (Auto) 87.4 H, Lymph % (Auto) 7.0 L, [place] % (Auto) 4.1, Eos % (Auto) 0.7, Baso % (Auto) 0.8, Neut # (Auto) 12.8 H, Lymph # (Auto) 1.0, [place] # (Auto) 0.6, Eos # (Auto) 0.1, Baso # (Auto) 0.1, Total Counted 100, Neutrophils % (Manual) 72, Lymphocytes % (Manual) 11, Monocytes % (Manual) 17 H, Platelet Estimate Normal, Hypochromasia 2+, Anisocytosis 1+, Microcytosis 1+ 11/29/21 15:35: Sodium 133 L, Potassium 3.7, Chloride 96 L, Carbon Dioxide 31 H, Anion Gap 9.7, BUN 12, Creatinine 0.70, Estimated Creat Clear 33, Estimated GFR 84, Est GFR ( Amer) 102, Glucose 71 L, Calcium 8.7, Total Bilirubin 1.3, AST 55 H, ALT 35, Alkaline Phosphatase 152 H, Troponin I < 0.01, Total Protein 7.6, Albumin 3.8, Globulin 3.8 H, Albumin/Globulin Ratio 1.0 L 11/29/21 15:35: Lactate 0.6 L 11/29/21 15:40: Urine Color Yellow, Urine Appearance Clear, Urine pH 7.5, Ur Specific [place] 1.015, Urine Protein Negative, Urine Glucose (UA) Negative, Urine Ketones Negative, Urine Blood Negative, Urine Nitrate Negative, Urine Bilirubin Negative, Urine Urobilinogen 0.2, Ur Leukocyte Esterase Negative, Urine RBC None, Urine WBC Occasional, Ur Squamous Epith Cells None, Urine Bacteria Trace 11/29/21 16:38: SARS-CoV-2 (PCR) Not detected, Influenza A Untype (PCR) Not detected, Influenza Type B (PCR) Not detected 11/29/21 16:40: Urine Opiates Screen Negative, Urine Methadone Screen Negative, Ur Barbituates Screen Negative, Ur Phencyclidine Scrn Negative, Ur Amphetamines Screen Negative, U Benzodiazepines Scrn Negative, Urine Cocaine Screen Negative, U Marijuana (THC) Screen Negative 11/29/21 17:20: VBG pH 7.37, VBG pCO2 49.4, VBG pO2 35.6, VBG HCO3 27.7, VBG Total CO2 29.2 H, VBG O2 Saturation 62.3, VBG Base Excess 2.3 11/29/21 17:25: Ammonia < 9 L 11/30/21 07:55: WBC 11.7 H, RBC 3.66 L, Hgb 10.1 L D, Hct 30.9 L, MCV 84.5, MCH 27.4, MCHC 32.4, RDW 18.4 H, Plt Count 330, MPV 8.2, Neut % (Auto) 83.5 H, Lymph % (Auto) 8.7 L, [place] % (Auto) 5.6, Eos % (Auto) 1.3, Baso % (Auto) 0.9, Neut # (Auto) 9.7 H, Lymph # (Auto) 1.0, [place] # (Auto) 0.7, Eos # (Auto) 0.2, Baso # (Auto) 0.1 11/30/21 07:55: Sodium 134 L, Potassium 3.6, Chloride 101, Carbon Dioxide 30, Anion Gap 6.6, BUN 16 D, Creatinine 0.70, Estimated Creat Clear 31, Estimated GFR 84, Est GFR ( Amer) 102, Glucose 84, Calcium 7.8 L, Total Bilirubin 0.9, AST 42 H, ALT 26 D, Alkaline Phosphatase 113, Total Protein 6.2 L, Albumin 3.0 L D, Globulin 3.2, Albumin/Globulin Ratio 0.9 L I & O for Last 24 hours: Intake & Output 11/27/21 11/28/21 11/29/21 11/30/21 11:59 11:59 11:59 11:59 Weight 77 lb 9.6 oz - Constitutional no acute distress, cachectic - *Routine HEENT Exam Head: Present: normocephalic Eye: Present: EOMI, PERRL ENT: Present: mucous membranes moist. Absent: dentition normal - *Routine Neck Exam Present: supple. Absent: JVD, lymphadenopathy - *Routine Respiratory Exam Present: decreased
--- NOTE | 2021-11-30 11:23 | HMH.HP ---
*Admission Date: 11/29/21 *Chief complaint: weakness, unable to walk, confusion *History of present illness: Ms. 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 Patient is afebrile and hemodynamically stable on arrival. During initial interview patient is confused grabbing at the air and unable to tell me her name or where she is. Patient is reevaluated during ED stay and is now alert and oriented x3. Basic labs, blood cultures, UA, VBG, lactic acid, troponin, bedside ECG, are obtained for further evaluation results show a mild leukocytosis but otherwise benign findings. CT head shows no evidence of acute intracranial hemorrhage. CXR pending. Given patients intermittent periods of confusion will admit for observation. Patient started on vanc and zosyn due to suspected infectious etiology. Prelim UDS non actionable thus far. Patient admitted in stable condition. (above as per ER physician) Further to above history, the patient was just recently discharged from [facility] last Saturday for pneumonia. She states she has had pneumonia 3 times in the last few months. She states she was sent home with an antibiotic but she is unsure of the name. She did not feel like it was working. She is on oxygen at all times. She states she feels much better this morning. [facility] History I have reviewed the patient's past medical history: Yes Medical History: Reports:: Anxiety, Heart Murmur, Hyperlipidemia, Hypertension Denies:: Cancer, Diabetes Mellitus Type 1, Diabetes Mellitus Type 2, Internal Pacemaker, MRSA *Have you ever received a pneumonia vaccine?: Yes *Have you received a flu vaccine this season?: Yes Other Medical History: Reports: Hypothyroidism, Sinus Problems, Thyroid Disease, Other (Alpha-1 antitrypsin deficiency) Other Surgeries: Yes: Cholecystectomy, Colonoscopy, EGD, Tubal Ligation, Other (PORT A CATH PLACEMENT). No: Pacemaker Amputation: No Fractures: No - *Social History Last grade of school completed: 9th or 10th Smoking Status: Former smoker Tobacco Type: cigarettes #Yrs smoked (if former smoker): 40 Alcohol Intake: never Alcohol Intake Frequency:: holidays/special occasions only *Occupational Status:: disabled Housing: house Household Members: children *Travel in the last 8 weeks: None Family Hx:: Asthma, Cancer, Coronary Artery Disease, Diabetes, Heart Attack, Hypertension, Stroke Review of Systems - Constitutional Reports weakness, Denies chills, Denies fever(s) - Eyes Denies blurry vision, Denies double vision - ENT Denies nasal congestion, Denies sore throat - *Cardiovascular Reports shortness of breath, Denies chest pain - *Respiratory Reports cough, Reports shortness of breath - *Gastrointestinal Reports nausea, Denies abdominal pain, Denies loose stools, Denies vomiting - *Genitourinary Denies difficulty urinating, Denies painful urination - *Musculoskeletal Reports joint pain (Has a broken tailbone) - *Neurologic Reports behavioral changes, Reports confusion, Reports dizziness, Reports weakness - Psychiatric Reports anxiety Meds Home Medications Medication Instructions Recorded Confirmed Type Albuterol Sulfate [Proair Hfa 2 puffs IH Q4HP PRN 08/30/17 11/29/21 History 90mcg/puff Inh] Aspirin [Aspirin 81mg EC Tab] 81 mg PO DAILY 08/30/17 11/29/21 History Levothyroxine Sodium 75 mcg PO DAILY 08/30/17 11/29/21 History [Levothyroxine 75mcg (0.075mg) Tab] Losartan Potassium 50 mg PO DAILY 08/30/17 11/29/21 History Medical Supply, Miscellaneous 1 each IH CONT 08/30/17 11/29/21 History [Oxygen Concentrator] Montelukast Sodium [Singulair 10mg 10 mg PO PM 08/30/17 11/29/21 History tablet] Multivitamin [Multivitamins] 1 each PO DAILY 08/30/17 11/29/21 History Omeprazole [Omeprazole 40mg 40 mg PO DAILY 08/30
[2021-11-30 12:35] VITALS: BMI 13.6
[2021-11-30 16:00] VITALS: BP 137/77; PULSE 77; RESP 19; TEMP 36.6; O2SAT 94
[2021-11-30 20:00] VITALS: BP 143/57; PULSE 78; RESP 19; TEMP 36.9; O2SAT 94
[2021-12-01 04:00] VITALS: BP 124/67; PULSE 63; RESP 15; TEMP 36.6; O2SAT 99
[2021-12-01 05:00] VITALS: BMI 15.7
[2021-12-01 07:54] VITALS: BP 130/61; PULSE 61; RESP 16; TEMP 36.8; O2SAT 99
[2021-12-01 08:00] VITALS: O2SAT 99
[2021-12-01 08:37] LABS: Chloride 103 mmol/L (98-107); Sodium 135 mmol/L (136-145)
[2021-12-01 08:40] LABS: Blood Urea Nitrogen 19 mg/dl (7-17); Calcium 7.6 mg/dl (8.4-10.2); Carbon Dioxide 31 mmol/L (22.0-30.0); Creatinine Clearance Estimated 36 mL/min (50-200); Estimated Glomerular Filt Rate 63 ml/min (>60); GFR (African American) 76 ML/MIN (>60); Glucose 79 mg/dl (74-100)
--- NOTE | 2021-12-01 09:20 | HMH.ACPN2 ---
Internal Medicine - PN: Subj *Date: 12/01/21 *Time: 09:20 Interval history: She has remained stable through the night and yesterday. She has not been receiving nebulizer treatments. We will give her treatment this morning before discharge. She has multiple antibiotic allergies. I will discharge her on clindamycin. Exam Vital signs and Labs for Last 24 Hours: Temp Pulse Resp BP Pulse Ox 98.3 F 61 16 130/61 99 12/01/21 07:54 12/01/21 07:54 12/01/21 07:54 12/01/21 07:54 12/01/21 07:54 Laboratory Results - last 24 hr 12/01/21 07:42: Sodium 135 L, Potassium 4.0, Chloride 103, Carbon Dioxide 31 H, Anion Gap 5.0, BUN 19 H, Creatinine 0.90 D, Estimated Creat Clear 36, Estimated GFR 63, Est GFR ( Amer) 76 D, Glucose 79, Calcium 7.6 L I & O for Last 24 hours: Intake & Output 11/28/21 11/29/21 11/30/21 12/01/21 11:59 11:59 11:59 11:59 Intake Total 320 / 320 Balance 320 / 320 Weight 77 lb 9.6 oz 89 lb - Constitutional no acute distress - *Routine HEENT Exam Head: Present: normocephalic Eye: Present: EOMI, PERRL ENT: Present: mucous membranes moist - *Routine Neck Exam Present: supple. Absent: lymphadenopathy - *Routine Respiratory Exam Present: decreased breath sounds, CTA bilaterally, rales, wheezes - *Routine Cardiovascular Exam Present: RRR - *Routine Abdominal Exam Present: soft, normoactive bowel sounds. Absent: tenderness - *Routine Extremities Exam Absent: cyanosis, clubbing, edema - *Routine Skin Exam Present: warm. Absent: rash - *Routine Neurological Exam Present: alert, oriented X3. Absent: altered mental status Assessment and Plan (1) AMS (altered mental status) Status: Acute Category: Medical Code(s): R41.82 - Altered mental status, unspecified (2) COPD (chronic obstructive pulmonary disease) Status: Acute Category: Medical Code(s): J44.9 - Chronic obstructive pulmonary disease, unspecified (3) Alpha 1-antitrypsin PiMS phenotype Status: Acute Category: Medical Code(s): Z14.8 - Genetic carrier of other disease (4) Protein calorie malnutrition Status: Acute Category: Medical Code(s): E46 - Unspecified protein-calorie malnutrition (5) Bandemia Status: Acute Category: Medical Code(s): D72.825 - Bandemia - Assessment and plan all Dx Assessment and Plan for all problems:: Discharged on clindamycin. Encouraged to follow-up soon with her primary care physician. She should contact them today.
[2021-12-01 09:40] VITALS: PULSE 71; PULSE 73
[2021-12-01 12:36] LABS: Basophils # 0.1 K/mm3 (0-0.2); Basophils % 1.2 % (0.1-2.0); Eosinophils # 0.2 K/mm3 (0.0-0.4); Hematocrit 29.6 % (37.0-47.0); Hemoglobin 9.3 g/dL (12.2-16.2); Lymphocytes # 1.2 K/mm3 (0.7-4.5); Lymphocytes % 12.5 % (10-50); Mean Corpuscular HGB Conc 31.4 g/dL (31.8-35.4); Mean Corpuscular Volume 86.1 fl (81-99); Mean Platelet Volume 9.2 fl (7.4-10.4); Monocytes # 0.7 K/mm3 (0.1-1.0); Monocytes % 6.9 % (1.7-9.3); Neutrophils # 7.5 K/mm3 (1.8-7.8); Neutrophils % 77.5 % (37.0-80.0); Platelet Count 334 K/mm3 (142-424); Red Blood Count 3.43 M/mm3 (4.20-5.40); Red Cell Distribution Width 18.7 % (11.5-17.5); White Blood Count 9.7 K/mm3 (4.8-10.8)
--- NOTE | 2021-12-01 12:38 | [facility].DCSUM ---
General - General Admission date:: 11/29/21 Discharge date: 12/01/21 HPI HPI: Ms. 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 Patient is afebrile and hemodynamically stable on arrival. During initial interview patient is confused grabbing at the air and unable to tell me her name or where she is. Patient is reevaluated during ED stay and is now alert and oriented x3. Basic labs, blood cultures, UA, VBG, lactic acid, troponin, bedside ECG, are obtained for further evaluation results show a mild leukocytosis but otherwise benign findings. CT head shows no evidence of acute intracranial hemorrhage. CXR pending. Given patients intermittent periods of confusion will admit for observation. Patient started on vanc and zosyn due to suspected infectious etiology. Prelim UDS non actionable thus far. Patient admitted in stable condition. (above as per ER physician) Further to above history, the patient was just recently discharged from [facility] last Saturday for pneumonia. She states she has had pneumonia 3 times in the last few months. She states she was sent home with an antibiotic but she is unsure of the name. She did not feel like it was working. She is on oxygen at all times. She states she feels much better this morning. Hospital Course Hospital Course: The patient's white blood cell count was initially elevated and improved with antibiotics. Her confusion and mental status improved as well. She was kept another night for monitoring and IV antibiotics. By 12/01/2021, she had remained stable and it was felt she could be discharged home on clindamycin and follow-up with her primary care physician. Objective Vital signs: Temp Pulse Resp BP Pulse Ox 98.3 F 73 16 130/61 99 12/01/21 07:54 12/01/21 09:40 12/01/21 07:54 12/01/21 07:54 12/01/21 07:54 Narrative: - Constitutional no acute distress - *Routine HEENT Exam Head: Present: normocephalic Eye: Present: EOMI, PERRL ENT: Present: mucous membranes moist - *Routine Neck Exam Present: supple. Absent: lymphadenopathy - *Routine Respiratory Exam Present: decreased breath sounds, CTA bilaterally - *Routine Cardiovascular Exam Present: RRR - *Routine Abdominal Exam Present: soft, normoactive bowel sounds. Absent: tenderness - *Routine Rectal Exam Rectal:: deferred - *Routine Genitalia Exam Genitalia:: deferred - *Routine Extremities Exam Absent: cyanosis, clubbing, edema - *Routine Skin Exam Present: warm. Absent: rash - *Routine Neurological Exam Present: alert, oriented X3 Results Labs on day of discharge: Labs from last 24 hours 12/01/21 07:42 Sodium 135 L Potassium 4.0 Chloride 103 Carbon Dioxide 31 H Anion Gap 5.0 BUN 19 H Creatinine 0.90 D Estimated Creat Clear 36 Estimated GFR 63 Est GFR ( Amer) 76 D Glucose 79 Calcium 7.6 L DS: Diagnosis - Discharge Diagnosis (1) AMS (altered mental status) Status: Acute (2) COPD (chronic obstructive pulmonary disease) Status: Acute (3) Alpha 1-antitrypsin PiMS phenotype Status: Acute (4) Protein calorie malnutrition Status: Acute (5) Bandemia Status: Acute Discharge Plan - Patient Discharge Instructions ACTIVITY: Continue current activity DIET: advance to your usual diet Patient Instructions: Encephalopathy, DI for Encephalopathy - Follow up Plan Follow up with: Kris Navarro MD [Primary Care Provider] - 12/08/21 10:00 am () Disposition: Home, Self-Care Condition at discharge:: Improved Home Medications: Home Medications Medication Instructions Recorded Confirmed Type Albuterol Sulfate [Proair Hfa 2 puffs IH Q4HP PRN 08/30/17 11/29/21 History 90mcg/puff Inh] Aspirin [Aspirin 81mg EC Tab] 81
--- NOTE | 2021-12-04 14:57 | CARE MANAGER ---
CM called and spoke to patient regarding post discharge status. Patient states that she is doing so much better. She states that she is very pleased with her care while in our facility. She states that she was able to car pick up driver her prescriptions and has been taking it as prescribed. Patient confirmed that she plans to attend her f/u appt on 12/08 @ 10, but she plans to call [facility] to establish care with Dr. Cordon.
== END 2021-12-01 01:00 | disposition home or self-care (01) ==
LOC: ER 16:42 → 2ND 21:21
PROVIDERS: Admitting Provider Family Medicine; Emergency Provider Student in an Organized Health Care Education/Training Program; PCP Emergency Medicine; Visit Provider Family Medicine
DX: R41.82 Altered mental status, unspecified (principal); G93.40 Encephalopathy, unspecified; E88.01 Alpha-1-antitrypsin deficiency; D72.825 Bandemia; J44.9 Chronic obstructive pulmonary disease, unspecified; E46 Unspecified protein-calorie malnutrition; Z68.1 Body mass index [BMI] 19.9 or less, adult; Z20.822 Contact with and (suspected) exposure to COVID-19; Z79.899 Other long term (current) drug therapy
CPT/HCPCS: G0378; 36415; 70450; 71045; 80048; 80053; 80305; 81001; 82140; 82803; 82962; 83605; 84484; 85007; 85025; 87040; 93005; 94640; 94761; 96365; 96367; 99285; C9803; J0256; J2543; J3370; U0003; U0005

== ENCOUNTER 2021-12-06 14:29 | Outpatient (CLI) | payer MEDICARE, SELFPAY ==
[2021-12-06 14:47] VITALS: BP 120/71; PULSE 73; RESP 22; TEMP 36.6; O2SAT 96
[2021-12-06 16:00] VITALS: BP 115/69; PULSE 78; RESP 22; O2SAT 97
== END 2021-12-06 16:00 | disposition home or self-care (01) ==
LOC: INF 14:30
PROVIDERS: PCP Emergency Medicine; Visit Provider Nurse Practitioner Family
DX: E88.01 Alpha-1-antitrypsin deficiency (principal); J43.9 Emphysema, unspecified; J43.8 Other emphysema; J96.11 Chronic respiratory failure with hypoxia
CPT/HCPCS: 96365; J0256; J1642

== ENCOUNTER 2021-12-26 15:06 | Outpatient (CLI) | payer MEDICARE, SELFPAY ==
[2021-12-26 15:14] VITALS: BMI 15.1
[2021-12-26 15:35] VITALS: BP 160/72; PULSE 71; RESP 18; TEMP 36.6; O2SAT 98
[2021-12-26 16:17] VITALS: BP 132/76; PULSE 74; RESP 18; O2SAT 98
== END 2021-12-26 16:18 | disposition home or self-care (01) ==
LOC: INF 15:08
PROVIDERS: PCP Emergency Medicine; Visit Provider Nurse Practitioner Family
DX: E88.01 Alpha-1-antitrypsin deficiency (principal); J43.9 Emphysema, unspecified; J43.8 Other emphysema; J96.11 Chronic respiratory failure with hypoxia
CPT/HCPCS: 96365; J0256; J1642

== ENCOUNTER 2022-01-04 14:43 | Outpatient (CLI) | payer MEDICARE, SELFPAY ==
[2022-01-04 15:20] VITALS: BP 114/70; PULSE 74; TEMP 36.6; O2SAT 97
[2022-01-04 16:05] VITALS: BP 116/72; PULSE 74; TEMP 36.4; O2SAT 97
== END 2022-01-04 16:05 | disposition home or self-care (01) ==
LOC: INF 14:44
PROVIDERS: PCP Emergency Medicine; Visit Provider Nurse Practitioner Family
DX: E88.01 Alpha-1-antitrypsin deficiency (principal); J43.9 Emphysema, unspecified; J43.8 Other emphysema; J96.11 Chronic respiratory failure with hypoxia
CPT/HCPCS: 96365; J0256; J1642

== ENCOUNTER 2022-01-16 14:24 | Outpatient (CLI) | payer MEDICARE, SELFPAY ==
[2022-01-16 14:44] VITALS: BP 127/74; PULSE 82; RESP 18; TEMP 36.2; O2SAT 94
[2022-01-16 15:14] VITALS: BP 117/70; PULSE 88; RESP 18; O2SAT 95
[2022-01-16 15:45] VITALS: BP 143/78; PULSE 81; RESP 18; O2SAT 95
== END 2022-01-16 15:59 | disposition home or self-care (01) ==
LOC: INF 14:25
PROVIDERS: PCP Emergency Medicine; Visit Provider Nurse Practitioner Family
DX: E88.01 Alpha-1-antitrypsin deficiency (principal); J43.9 Emphysema, unspecified; J43.8 Other emphysema; J96.11 Chronic respiratory failure with hypoxia
CPT/HCPCS: 96365; J0256; J1642

== ENCOUNTER 2022-01-24 13:51 | Outpatient (CLI) | payer MEDICARE, SELFPAY ==
[2022-01-24 14:13] VITALS: BMI 15.6
[2022-01-24 14:20] VITALS: BP 112/64; PULSE 75; RESP 20; TEMP 36.3; O2SAT 92
[2022-01-24 15:10] VITALS: BP 129/73; PULSE 74; RESP 20; O2SAT 94
== END 2022-01-24 15:24 | disposition home or self-care (01) ==
LOC: INF 13:52
PROVIDERS: PCP Emergency Medicine; Visit Provider Nurse Practitioner Family
DX: E88.01 Alpha-1-antitrypsin deficiency (principal); J43.9 Emphysema, unspecified; J43.8 Other emphysema; J96.11 Chronic respiratory failure with hypoxia
CPT/HCPCS: 96365; J0256; J1642

== ENCOUNTER 2022-01-31 13:49 | Outpatient (CLI) | payer MEDICARE, SELFPAY ==
[2022-01-31 14:41] VITALS: BP 139/68; PULSE 67; RESP 18; TEMP 36.4; O2SAT 97
[2022-01-31 15:10] VITALS: BP 125/71; PULSE 69; RESP 18; TEMP 36.6; O2SAT 97
== END 2022-01-31 15:10 | disposition home or self-care (01) ==
LOC: INF 13:51
PROVIDERS: PCP Emergency Medicine; Visit Provider Nurse Practitioner Family
DX: E88.01 Alpha-1-antitrypsin deficiency (principal); J43.9 Emphysema, unspecified; J43.8 Other emphysema; J96.11 Chronic respiratory failure with hypoxia
CPT/HCPCS: 96365; J0256; J1642

== ENCOUNTER 2022-02-07 14:29 | Outpatient (CLI) | payer MEDICARE, SELFPAY ==
[2022-02-07 14:37] VITALS: BMI 15.5
[2022-02-07 15:16] VITALS: BP 124/65; PULSE 67; RESP 18; O2SAT 99
[2022-02-07 16:05] VITALS: BP 124/67; PULSE 64; RESP 19; O2SAT 97
== END 2022-02-07 16:06 | disposition home or self-care (01) ==
PROVIDERS: PCP Nurse Practitioner Family; Visit Provider Nurse Practitioner Acute Care
DX: E88.01 Alpha-1-antitrypsin deficiency (principal); J43.9 Emphysema, unspecified; J43.8 Other emphysema; J96.11 Chronic respiratory failure with hypoxia
CPT/HCPCS: 96365; J0256; J1642

== ENCOUNTER 2022-03-14 13:37 | Outpatient (CLI) | payer MEDICARE, SELFPAY ==
[2022-03-14 14:10] VITALS: BP 145/74; PULSE 65; RESP 18; TEMP 36.2; O2SAT 100; BMI 15.1
[2022-03-14 14:55] VITALS: BP 126/68; PULSE 69; RESP 18; O2SAT 99
== END 2022-03-14 15:10 | disposition home or self-care (01) ==
LOC: INF 13:38
PROVIDERS: PCP Emergency Medicine; Visit Provider Nurse Practitioner Family
DX: E88.01 Alpha-1-antitrypsin deficiency (principal); J43.9 Emphysema, unspecified; J43.8 Other emphysema; J96.11 Chronic respiratory failure with hypoxia
CPT/HCPCS: 96365; J0256; J1642

== ENCOUNTER 2022-03-22 13:55 | Outpatient (CLI) | payer MEDICARE, SELFPAY ==
[2022-03-22 14:09] VITALS: BP 110/71; PULSE 67; RESP 18; O2SAT 97
[2022-03-22 15:15] VITALS: BP 108/72; PULSE 70; RESP 18; TEMP 35.8; O2SAT 97
== END 2022-03-22 15:15 | disposition home or self-care (01) ==
LOC: INF 13:56
PROVIDERS: PCP Emergency Medicine; Visit Provider Nurse Practitioner Family
DX: E88.01 Alpha-1-antitrypsin deficiency (principal); J43.9 Emphysema, unspecified; J43.8 Other emphysema; J96.11 Chronic respiratory failure with hypoxia
CPT/HCPCS: 96365; J0256; J1642

== ENCOUNTER 2022-03-28 13:07 | Outpatient (CLI) | payer MEDICARE, SELFPAY ==
[2022-03-28 13:48] VITALS: BP 119/65; PULSE 79; RESP 18; TEMP 36.4; O2SAT 99
[2022-03-28 14:50] VITALS: BP 113/65; PULSE 68; RESP 23; O2SAT 99
== END 2022-03-28 14:50 | disposition home or self-care (01) ==
LOC: INF 13:07
PROVIDERS: PCP Emergency Medicine; Visit Provider Nurse Practitioner Family
DX: E88.01 Alpha-1-antitrypsin deficiency (principal); J43.9 Emphysema, unspecified; J43.8 Other emphysema; J96.11 Chronic respiratory failure with hypoxia
CPT/HCPCS: 96365; J0256; J1642

== ENCOUNTER 2022-04-04 13:46 | Outpatient (CLI) | payer MEDICARE, SELFPAY ==
[2022-04-04 14:05] VITALS: BP 124/63; PULSE 79; RESP 18; TEMP 36.4; O2SAT 94
[2022-04-04 14:35] VITALS: BP 121/68; PULSE 81; RESP 18; O2SAT 95
[2022-04-04 15:05] VITALS: BP 148/67; PULSE 72; RESP 18; O2SAT 95
== END 2022-04-04 15:18 | disposition home or self-care (01) ==
LOC: INF 13:47
PROVIDERS: PCP Emergency Medicine; Visit Provider Nurse Practitioner Acute Care
DX: E88.01 Alpha-1-antitrypsin deficiency (principal); J43.9 Emphysema, unspecified; J43.8 Other emphysema; J96.11 Chronic respiratory failure with hypoxia
CPT/HCPCS: 96365; J0256; J1642

== ENCOUNTER 2022-04-10 12:31 | Outpatient (CLI) | payer MEDICARE, SELFPAY ==
[2022-04-10 13:05] VITALS: BP 121/62; PULSE 68; RESP 18; TEMP 36.4; O2SAT 94
[2022-04-10 13:35] VITALS: BP 118/69; PULSE 70; RESP 18; O2SAT 94
[2022-04-10 13:55] VITALS: BP 114/68; PULSE 65; RESP 18; O2SAT 94
== END 2022-04-10 13:56 | disposition home or self-care (01) ==
LOC: INF 12:32
PROVIDERS: PCP Emergency Medicine; Visit Provider Nurse Practitioner Family
DX: E88.01 Alpha-1-antitrypsin deficiency (principal); J43.9 Emphysema, unspecified; J43.8 Other emphysema; J96.11 Chronic respiratory failure with hypoxia
CPT/HCPCS: 96365; J0256; J1642

== ENCOUNTER 2022-04-19 12:27 | Outpatient (CLI) | payer MEDICARE, SELFPAY ==
[2022-04-19 12:55] VITALS: BP 109/73; PULSE 83; RESP 18; TEMP 36.7; O2SAT 94
[2022-04-19 13:55] VITALS: BP 105/76; PULSE 81; RESP 18; O2SAT 96
== END 2022-04-19 14:10 | disposition home or self-care (01) ==
LOC: INF 12:28
PROVIDERS: PCP Emergency Medicine; Visit Provider Nurse Practitioner Family
DX: E88.01 Alpha-1-antitrypsin deficiency (principal); J43.9 Emphysema, unspecified; J43.8 Other emphysema; J96.11 Chronic respiratory failure with hypoxia; Z45.2 Encounter for adjustment and management of vascular access device
CPT/HCPCS: 96365; J0256; J1642

== ENCOUNTER 2022-04-26 13:15 | Outpatient (CLI) | payer MEDICARE, SELFPAY ==
[2022-04-26 13:40] VITALS: BP 116/63; PULSE 75; RESP 20; TEMP 36.3; O2SAT 96
[2022-04-26 14:35] VITALS: BP 112/65; PULSE 74; O2SAT 98
== END 2022-04-26 14:35 | disposition home or self-care (01) ==
LOC: INF 13:16
PROVIDERS: PCP Emergency Medicine; Visit Provider Nurse Practitioner Family
DX: E88.01 Alpha-1-antitrypsin deficiency (principal); J43.9 Emphysema, unspecified; J43.8 Other emphysema; J96.11 Chronic respiratory failure with hypoxia
CPT/HCPCS: 96365; J0256; J1642

== ENCOUNTER 2022-05-02 13:24 | Outpatient (CLI) | payer MEDICARE, SELFPAY ==
[2022-05-02 13:40] VITALS: BMI 16.3
[2022-05-02 14:00] VITALS: BP 130/70; PULSE 73; RESP 18; TEMP 36.6; O2SAT 92
[2022-05-02 14:50] VITALS: BP 123/65; PULSE 68; RESP 18; O2SAT 94
== END 2022-05-02 14:55 | disposition home or self-care (01) ==
LOC: INF 13:25
PROVIDERS: PCP Emergency Medicine; Visit Provider Nurse Practitioner Family
DX: E88.01 Alpha-1-antitrypsin deficiency (principal); J43.9 Emphysema, unspecified; J43.8 Other emphysema; J96.11 Chronic respiratory failure with hypoxia
CPT/HCPCS: 96365; J0256; J1642

== ENCOUNTER 2022-05-11 13:28 | Outpatient (CLI) | payer MEDICARE, SELFPAY ==
[2022-05-11 14:00] VITALS: BP 118/70; PULSE 64; RESP 20; O2SAT 100
[2022-05-11 14:30] VITALS: BP 121/72; PULSE 66; RESP 18
== END 2022-05-11 15:10 | disposition home or self-care (01) ==
LOC: INF 13:29
PROVIDERS: PCP Emergency Medicine; Visit Provider Nurse Practitioner Family
DX: E88.01 Alpha-1-antitrypsin deficiency (principal); J43.9 Emphysema, unspecified; J43.8 Other emphysema; J96.11 Chronic respiratory failure with hypoxia
CPT/HCPCS: 96365; J0256; J1642

== ENCOUNTER 2022-05-17 13:32 | Outpatient (CLI) | payer MEDICARE, SELFPAY ==
[2022-05-17 14:04] VITALS: BP 105/67; PULSE 70; RESP 18; TEMP 36.4; O2SAT 98
[2022-05-17 14:38] VITALS: BP 110/65; PULSE 73; RESP 18; O2SAT 98
== END 2022-05-17 14:39 | disposition home or self-care (01) ==
LOC: INF 13:33
PROVIDERS: PCP Emergency Medicine; Visit Provider Nurse Practitioner Family
DX: E88.01 Alpha-1-antitrypsin deficiency (principal); J43.9 Emphysema, unspecified; J43.8 Other emphysema; J96.11 Chronic respiratory failure with hypoxia
CPT/HCPCS: 96365; J0256; J1642

== ENCOUNTER 2022-05-23 14:40 | Outpatient (CLI) | payer MEDICARE, SELFPAY ==
[2022-05-23 15:08] VITALS: BP 136/71; PULSE 74; RESP 18; TEMP 36.4; O2SAT 98
[2022-05-23 16:00] VITALS: BP 131/66; PULSE 61; RESP 18; O2SAT 98
== END 2022-05-23 16:10 | disposition home or self-care (01) ==
LOC: INF 14:41
PROVIDERS: PCP Emergency Medicine; Visit Provider Nurse Practitioner Family
DX: E88.01 Alpha-1-antitrypsin deficiency (principal); J43.9 Emphysema, unspecified; J43.8 Other emphysema; J96.11 Chronic respiratory failure with hypoxia
CPT/HCPCS: 96365; J0256; J1642

== ENCOUNTER 2022-06-01 13:28 | Outpatient (CLI) | payer MEDICARE, SELFPAY ==
[2022-06-01 14:10] VITALS: BP 125/69; PULSE 69; RESP 20
[2022-06-01 14:50] VITALS: BP 133/66; PULSE 64; RESP 18
== END 2022-06-01 15:05 | disposition home or self-care (01) ==
LOC: INF 13:29
PROVIDERS: PCP Emergency Medicine; Visit Provider Nurse Practitioner Family
DX: E88.01 Alpha-1-antitrypsin deficiency (principal); J43.9 Emphysema, unspecified; J43.8 Other emphysema; J96.11 Chronic respiratory failure with hypoxia
CPT/HCPCS: 96365; J0256; J1642

== ENCOUNTER 2022-06-06 13:27 | Outpatient (CLI) | payer MEDICARE, SELFPAY ==
[2022-06-06 14:09] VITALS: BP 122/67; PULSE 66; RESP 22; TEMP 36.4; O2SAT 94
[2022-06-06 15:17] VITALS: BP 128/62; PULSE 61; RESP 22; O2SAT 94
== END 2022-06-06 15:37 | disposition home or self-care (01) ==
LOC: INF 13:29
PROVIDERS: PCP Emergency Medicine; Visit Provider Nurse Practitioner Family
DX: E88.01 Alpha-1-antitrypsin deficiency (principal); J43.9 Emphysema, unspecified; J43.8 Other emphysema; J96.11 Chronic respiratory failure with hypoxia
CPT/HCPCS: 96365; J0256; J1642

== ENCOUNTER 2022-06-15 13:02 | Outpatient (CLI) | payer MEDICARE, SELFPAY ==
[2022-06-15 13:55] VITALS: BP 133/71; PULSE 66; RESP 20; O2SAT 97
[2022-06-15 14:25] VITALS: BP 128/74; PULSE 68; RESP 18
== END 2022-06-15 14:35 | disposition home or self-care (01) ==
PROVIDERS: PCP Emergency Medicine; Visit Provider Nurse Practitioner Family
DX: E88.01 Alpha-1-antitrypsin deficiency (principal); J43.9 Emphysema, unspecified; J43.8 Other emphysema; J96.11 Chronic respiratory failure with hypoxia
CPT/HCPCS: 96365; J0256; J1642

== ENCOUNTER 2022-06-29 13:41 | Outpatient (CLI) | payer MEDICARE, SELFPAY ==
[2022-06-29 14:36] VITALS: BP 116/71; PULSE 68; RESP 18; O2SAT 97
[2022-06-29 15:14] VITALS: BP 126/70; PULSE 71; RESP 18; O2SAT 97
== END 2022-06-29 15:14 | disposition home or self-care (01) ==
LOC: INF 13:42
PROVIDERS: PCP Emergency Medicine; Visit Provider Nurse Practitioner Family
DX: E88.01 Alpha-1-antitrypsin deficiency (principal); J43.9 Emphysema, unspecified; J43.8 Other emphysema; J96.11 Chronic respiratory failure with hypoxia
CPT/HCPCS: 96365; J0256; J1642

== ENCOUNTER 2022-07-04 14:20 | Outpatient (CLI) | payer MEDICARE, SELFPAY ==
[2022-07-04 14:50] VITALS: BP 110/62; PULSE 67; RESP 22; O2SAT 97
[2022-07-04 15:56] VITALS: BP 116/67; PULSE 70; RESP 22; O2SAT 97
== END 2022-07-04 15:58 | disposition home or self-care (01) ==
PROVIDERS: PCP Emergency Medicine; Visit Provider Nurse Practitioner Family
DX: E88.01 Alpha-1-antitrypsin deficiency (principal); J43.9 Emphysema, unspecified; J43.8 Other emphysema; J96.11 Chronic respiratory failure with hypoxia
CPT/HCPCS: 96365; J0256; J1642

== ENCOUNTER 2022-07-11 14:25 | Outpatient (CLI) | payer MEDICARE, SELFPAY ==
[2022-07-11 14:55] VITALS: BP 136/70; PULSE 68; RESP 18; TEMP 36.6; O2SAT 93
[2022-07-11 15:50] VITALS: BP 127/68; PULSE 78; RESP 18; O2SAT 93
== END 2022-07-11 16:00 | disposition home or self-care (01) ==
PROVIDERS: PCP Emergency Medicine; Visit Provider Nurse Practitioner Family
DX: E88.01 Alpha-1-antitrypsin deficiency (principal); J43.9 Emphysema, unspecified; J43.8 Other emphysema; J96.11 Chronic respiratory failure with hypoxia
CPT/HCPCS: 96365; J0256; J1642

== ENCOUNTER 2022-07-18 12:51 | Outpatient (CLI) | payer MEDICARE, SELFPAY ==
[2022-07-18 13:50] VITALS: BP 119/72; PULSE 67; RESP 18; O2SAT 98
[2022-07-18 14:35] VITALS: BP 126/65; PULSE 73; RESP 18
== END 2022-07-18 14:50 | disposition home or self-care (01) ==
LOC: INF 12:51
PROVIDERS: PCP Emergency Medicine; Visit Provider Nurse Practitioner Family
DX: E88.01 Alpha-1-antitrypsin deficiency (principal); J43.9 Emphysema, unspecified; J43.8 Other emphysema; J96.11 Chronic respiratory failure with hypoxia
CPT/HCPCS: 96365; J0256; J1642

== ENCOUNTER 2022-07-25 13:40 | Outpatient (CLI) | payer MEDICARE, SELFPAY ==
[2022-07-25 14:25] VITALS: BP 116/68; PULSE 75; RESP 20
[2022-07-25 14:55] VITALS: BP 115/71; PULSE 72; RESP 18
== END 2022-07-25 15:30 | disposition home or self-care (01) ==
LOC: INF 13:41
PROVIDERS: PCP Emergency Medicine; Visit Provider Nurse Practitioner Family
DX: E88.01 Alpha-1-antitrypsin deficiency (principal); J43.9 Emphysema, unspecified; J43.8 Other emphysema; J96.11 Chronic respiratory failure with hypoxia
CPT/HCPCS: 96365; J0256; J1642

== ENCOUNTER 2022-08-07 13:23 | Outpatient (CLI) | payer MEDICARE, SELFPAY ==
[2022-08-07 14:05] VITALS: BP 145/70; PULSE 77; RESP 20; TEMP 36.3; O2SAT 96
[2022-08-07 14:55] VITALS: BP 128/69; PULSE 76; RESP 22; O2SAT 95
== END 2022-08-07 15:05 | disposition home or self-care (01) ==
LOC: INF 13:23
PROVIDERS: PCP Emergency Medicine; Visit Provider Nurse Practitioner Family
DX: E88.01 Alpha-1-antitrypsin deficiency (principal); J43.9 Emphysema, unspecified; J43.8 Other emphysema; J96.11 Chronic respiratory failure with hypoxia
CPT/HCPCS: 96365; J0256; J1642

== ENCOUNTER 2022-08-15 14:21 | Outpatient (CLI) | payer MEDICARE, SELFPAY ==
[2022-08-15 15:33] VITALS: BP 124/71; PULSE 63; RESP 18; O2SAT 97
[2022-08-15 15:47] VITALS: BP 127/73; PULSE 73; RESP 18; O2SAT 97
== END 2022-08-15 15:48 | disposition home or self-care (01) ==
LOC: INF 14:26
PROVIDERS: PCP Emergency Medicine; Visit Provider Nurse Practitioner Family
DX: E88.01 Alpha-1-antitrypsin deficiency (principal); J43.9 Emphysema, unspecified; J43.8 Other emphysema; J96.11 Chronic respiratory failure with hypoxia
CPT/HCPCS: 96365; J0256; J1642

== ENCOUNTER 2022-08-31 12:03 | Outpatient (CLI) | payer MEDICARE, SELFPAY ==
[2022-08-31 12:50] VITALS: BP 107/65; PULSE 80; RESP 18; O2SAT 99
[2022-08-31 13:32] VITALS: BP 110/67; PULSE 82; RESP 18
== END 2022-08-31 13:47 | disposition home or self-care (01) ==
LOC: INF 12:03
PROVIDERS: PCP Emergency Medicine; Visit Provider Nurse Practitioner Family
DX: E88.01 Alpha-1-antitrypsin deficiency (principal); J43.9 Emphysema, unspecified; J43.8 Other emphysema; J96.11 Chronic respiratory failure with hypoxia
CPT/HCPCS: 96365; J0256; J1642

== ENCOUNTER 2022-09-05 14:00 | Outpatient (CLI) | payer MEDICARE, SELFPAY ==
[2022-09-05 14:30] VITALS: BP 130/69; PULSE 76; RESP 22; TEMP 36.3; O2SAT 100
[2022-09-05 15:35] VITALS: BP 105/63; PULSE 73; RESP 20; O2SAT 99
[2022-09-05 15:53] VITALS: BMI 18.6
== END 2022-09-05 15:40 | disposition home or self-care (01) ==
PROVIDERS: PCP Emergency Medicine; Visit Provider Nurse Practitioner Family
DX: E88.01 Alpha-1-antitrypsin deficiency (principal); J43.9 Emphysema, unspecified; J43.8 Other emphysema; J96.11 Chronic respiratory failure with hypoxia
CPT/HCPCS: 96365; J0256; J1642

== ENCOUNTER 2022-09-12 13:00 | Outpatient (CLI) | payer MEDICARE, SELFPAY ==
[2022-09-12 13:53] VITALS: BP 116/67; PULSE 74; RESP 18; O2SAT 99
[2022-09-12 14:30] VITALS: BP 124/68; PULSE 68; RESP 18; O2SAT 99
== END 2022-09-12 14:30 | disposition home or self-care (01) ==
LOC: INF 13:01
PROVIDERS: PCP Emergency Medicine; Visit Provider Nurse Practitioner Family
DX: E88.01 Alpha-1-antitrypsin deficiency (principal); J43.9 Emphysema, unspecified; J43.8 Other emphysema; J96.11 Chronic respiratory failure with hypoxia
CPT/HCPCS: 96365; J0256; J1642

== ENCOUNTER 2022-09-19 14:19 | Outpatient (CLI) | payer MEDICARE, SELFPAY ==
[2022-09-19 14:40] VITALS: BP 108/73; PULSE 83; RESP 22; TEMP 36.4; O2SAT 96
[2022-09-19 15:33] VITALS: BP 110/56; PULSE 80; RESP 22; O2SAT 97
== END 2022-09-19 15:43 | disposition home or self-care (01) ==
LOC: INF 14:19
PROVIDERS: PCP Emergency Medicine; Visit Provider Nurse Practitioner Family
DX: E88.01 Alpha-1-antitrypsin deficiency (principal); J43.9 Emphysema, unspecified; J43.8 Other emphysema; J96.11 Chronic respiratory failure with hypoxia
CPT/HCPCS: 96365; J0256; J1642

== ENCOUNTER 2022-10-05 13:55 | Outpatient (CLI) | payer MEDICARE, SELFPAY ==
[2022-10-05 14:19] VITALS: BP 131/87; PULSE 74; RESP 18; O2SAT 97
[2022-10-05 15:10] VITALS: BP 144/86; PULSE 70; RESP 20
== END 2022-10-05 15:10 | disposition home or self-care (01) ==
LOC: INF 13:56
PROVIDERS: PCP Emergency Medicine; Visit Provider Nurse Practitioner Family
DX: E88.01 Alpha-1-antitrypsin deficiency (principal); J43.9 Emphysema, unspecified; J43.8 Other emphysema; J96.11 Chronic respiratory failure with hypoxia; Z45.2 Encounter for adjustment and management of vascular access device
CPT/HCPCS: 96365; J0256; J1642

== ENCOUNTER 2022-10-10 12:49 | Outpatient (CLI) | payer MEDICARE, SELFPAY ==
[2022-10-10 13:15] VITALS: BP 100/46; PULSE 59; RESP 19; O2SAT 98
[2022-10-10 14:20] VITALS: BP 113/74; PULSE 66; RESP 18; O2SAT 98
== END 2022-10-10 14:20 | disposition home or self-care (01) ==
PROVIDERS: PCP Emergency Medicine; Visit Provider Nurse Practitioner Family
DX: E88.01 Alpha-1-antitrypsin deficiency (principal); J43.9 Emphysema, unspecified; J43.8 Other emphysema; J96.11 Chronic respiratory failure with hypoxia
CPT/HCPCS: 96365; J0256; J1642

== ENCOUNTER 2022-11-09 13:36 | Outpatient (CLI) | payer MEDICARE, SELFPAY ==
[2022-11-09 15:10] VITALS: BP 115/65; PULSE 76; RESP 19; O2SAT 97
[2022-11-09 15:40] VITALS: BP 86/60; PULSE 76; RESP 19; O2SAT 96
== END 2022-11-09 15:10 | disposition home or self-care (01) ==
LOC: INF 13:40
PROVIDERS: PCP Emergency Medicine; Visit Provider Nurse Practitioner Family
DX: E88.01 Alpha-1-antitrypsin deficiency (principal); J43.9 Emphysema, unspecified; J43.8 Other emphysema; J96.11 Chronic respiratory failure with hypoxia
CPT/HCPCS: 96365; J0256; J1642

== ENCOUNTER 2022-11-15 14:12 | Outpatient (CLI) | payer MEDICARE, SELFPAY ==
[2022-11-15 14:40] VITALS: BP 127/80; PULSE 79; RESP 18; O2SAT 98
[2022-11-15 15:36] VITALS: BP 116/64; PULSE 86; RESP 18; O2SAT 96
== END 2022-11-15 15:36 | disposition home or self-care (01) ==
LOC: INF 14:12
PROVIDERS: PCP Emergency Medicine; Visit Provider Nurse Practitioner Family
DX: E88.01 Alpha-1-antitrypsin deficiency (principal); J43.9 Emphysema, unspecified; J43.8 Other emphysema; J96.11 Chronic respiratory failure with hypoxia
CPT/HCPCS: 96365; J0256; J1642

== ENCOUNTER 2022-12-07 14:32 | Outpatient (CLI) | payer MEDICARE, SELFPAY ==
[2022-12-07 15:05] VITALS: BP 112/53; PULSE 83; RESP 20; O2SAT 94
[2022-12-07 15:35] VITALS: BP 110/63; PULSE 85; RESP 18
== END 2022-12-07 15:45 | disposition home or self-care (01) ==
LOC: INF 14:33
PROVIDERS: PCP Emergency Medicine; Visit Provider Nurse Practitioner Family
DX: Z45.2 Encounter for adjustment and management of vascular access device (principal); E88.01 Alpha-1-antitrypsin deficiency; J43.9 Emphysema, unspecified; J43.8 Other emphysema; J96.11 Chronic respiratory failure with hypoxia
CPT/HCPCS: 96365; J0256; J1642